=== PATIENT | female | born 1950 | race Caucasian/White ===

== ENCOUNTER 2023-05-26 09:40 | Outpatient (REF) | payer MEDICARE, SELFPAY ==
--- NOTE | ~2023-05-26 | XR_ITS ---
EXAMINATION: XR KNEE, RIGHT CLINICAL INFORMATION: Pain COMPARISON: None available. TECHNIQUE: Four views of the right knee. FINDINGS: Large effusion. End-stage osteoarthritis medial femoral tibial joint compartment with complete loss of joint space. Relatively advanced degenerative change involving the other joint compartments as well. No radiopaque loose body or focal bony lesion. XR/XR knee RT 3V IMPRESSION: End-stage osteoarthritis as above. Large effusion.
== END 2023-05-26 09:41 | disposition home or self-care (01) ==
LOC: HO.HOSX 09:40
PROVIDERS: Visit Provider Orthopaedic Surgery
DX: M17.11 Unilateral primary osteoarthritis, right knee (principal); Z79.899 Other long term (current) drug therapy
CPT/HCPCS: 20610; 73562; 99202; J3301

== ENCOUNTER 2023-05-26 12:41 | Outpatient (AMB) | payer MEDICARE, SELFPAY ==
--- NOTE | 2023-05-26 12:49 | A.OFFVIS_ITS ---
Intake Vital Signs 05/26/23 13:09 Height 5 ft 4 in Weight 207 lb BMI 35.5 Intake Visit Reasons: New Pt - Right Knee Pain Intake Note: Antonietta is a 73 year old female who presents today to for an evaluation of right knee pain. Patient reports she has O.A in both knee but her right is worse. States she had a fall on March and injury her knee. Seen at walk in [place] and at PCP office where xrays were taken and was RX'd therapy. Patient reports she was told she has fluid in knee. Reports P.T is helping some what. Currently taking gabapentin with temporarily relief. Patient has tried Gel injection and cortisone injection a while ago with good relief. This is a previous patient of Dr. Rodriguez. 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 Physical Exam Const Other: Well-nourished well-developed very friendly female awake alert and oriented x3 in no acute distress Extrem Other: Bilateral lower extremity examination shows good capillary refill, no skin lesions noted, normal sensation light touch Right knee examination shows a minimal effusion, palpable crepitus with range of motion, pain with range of motion, range of motion from -3 degrees to 115 degrees, no instability Office Procedures Joint Injection/Drain Joint Injection/Drain Primary Site: right knee Prep: site was prepped using aseptic technique Injected: 40 mg of, Kenalog and 1% plain lidocaine Procedure: The patient tolerated the procedure well Coding 47123 - Large joint Procedure code (CPT) selection complete Results Reviewed Results Reviewed: X-rays of the patient's right knee taken today show severe joint space narrowing, subchondral sclerosis, osteophyte formation, no acute bony abnormalities Assessment & Plan Assessment & Plan (1) Arthritis of right knee: Code(s): M17.11 - Unilateral primary osteoarthritis, right knee Plan: Ms. Tijerina presents with progressively worsening right knee pain due to degenerative joint disease. I had a lengthy discussion with the patient susy vitale the treatment options. She wishes to hold off on total knee replacement surgery for as long as possible. I agree with this plan. The risks and benefits of a cortisone injection were discussed at length with the patient. The patient wished to proceed. She tolerated her right knee cortisone injection well. She will continue with activities as tolerated. She will follow up with me on an as-needed basis should her symptoms not plateau at an unacceptable level over the next few months. If she fails continued non operative treatments we will further discuss the risks and benefits of right total knee replacement surgery. I spent 24 minutes in reviewing the patient's records and imaging studies, seeing the patient and documenting in the medical record. (2) Heart murmur: Code(s): R01.1 - Cardiac murmur, unspecified Orders: Orders XR knee RT 3V Today M25.561 - Pain in right knee AMB Joint Injection/Aspiration Today M17.11 - Unilateral primary osteoarthritis, right knee Coding Level of Care Code Est Pt Level 2 (75132) Diagnoses Arthritis of right knee M17.11 Heart murmur R01.1 CPT Codes Coding - 28585 Large joint: 32442 - Large joint ([id number])
[2023-05-26 13:09] VITALS: BMI 35.5
== END 2023-05-26 13:47 | disposition home or self-care (01) ==
PROVIDERS: Visit Provider Orthopaedic Surgery
DX: M17.11 Unilateral primary osteoarthritis, right knee (principal); R01.1 Cardiac murmur, unspecified
CPT/HCPCS: 20610; 99203

== ENCOUNTER 2023-08-19 11:19 | Outpatient (AMB) | payer MEDICARE, SELFPAY ==
[2023-08-19 11:41] VITALS: BMI 35.5
--- NOTE | 2023-08-19 11:41 | MHC.OFFVIS ---
Intake Vital Signs 08/19/23 11:41 Height 5 ft 4 in Weight 207 lb BMI 35.5 Intake Visit Reasons: EP-Right Knee Pain Intake Note: Antonietta 73 yr old female presents today with complaints of progressively worsening right knee pain. She describes her pain as sharp and severe in nature, 08/24. Her pain has gotten worse over the last few years in spite of continued non operative treatments. She has done physical therapy for 12 weeks over the last 6 months which aggravated her pain. She has also tried Tylenol, anti-inflammatory medicines and oxycodone which gave her only mild relief. She has had injections in the past. Most recent injection gave her minimal relief. Patient has difficulty walking even short distances because of her pain. At this point her right knee pain is interfering with her activities of daily living and her ability to sleep both of the night. 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 Physical Exam Vital Signs: BMI result Body Mass Index 35.5 Const Other: Well-nourished well-developed very friendly female awake alert and oriented x3 in no acute distress Extrem Other: Bilateral lower extremity examination shows good capillary refill, no skin lesions noted, normal sensation light touch Right knee examination shows a minimal effusion, palpable crepitus with range of motion, pain with range of motion, range of motion from -3 degrees to 115 degrees, no instability Results Reviewed Results Reviewed: X-rays of the patient's right knee show severe joint space narrowing with grade 4 [id number] arthritis in the medial compartment, subchondral sclerosis, osteophyte formation, no acute bony abnormalities Assessment & Plan Assessment & Plan (1) Arthritis of right knee: Code(s): M17.11 - Unilateral primary osteoarthritis, right knee Plan: Mrs. Tijerina presents with progressively worsening right knee pain due to end-stage degenerative joint disease. I had a lengthy discussion with the patient regarding the treatment options. At this point she has failed continued non operative treatments. The risks and benefits of right total knee replacement surgery were discussed at length with the patient. The patient wishes to proceed with surgery later this year or early next year. She will contact my office to pick a surgery date. I will see her back 1 week prior to her surgery to answer any final questions that she might have. I did refill her prescription for oxycodone to help with her pain in the meantime. Feel free to call me at any time should questions regarding her orthopedic management arise. I spent 22 minutes in reviewing the patient's records and imaging studies, seeing the patient and documenting in the medical record. Medications: New oxycodone Partial Fill upon patient request. 5 mg PO Q12H PRN 40 tabs 0RF pain Coding Level of Care Code Est Pt Level 2 (50215) Diagnoses Arthritis of right knee M17.11
== END 2023-08-19 12:35 | disposition home or self-care (01) ==
PROVIDERS: PCP Internal Medicine; Visit Provider Orthopaedic Surgery
DX: M17.11 Unilateral primary osteoarthritis, right knee (principal)
CPT/HCPCS: 99212

== ENCOUNTER → 2023-08-19 11:19 | Outpatient (BNVA) | payer MEDICARE, SELFPAY | PROVIDERS: PCP Internal Medicine; Visit Provider Orthopaedic Surgery | DX: M17.11 Unilateral primary osteoarthritis, right knee (principal) | CPT/HCPCS: 99212 ==

== ENCOUNTER 2024-02-03 10:12 | Outpatient (AMB) | payer MEDICARE, SELFPAY ==
[2024-02-03 10:18] VITALS: BMI 35.5
--- NOTE | 2024-02-03 10:18 | A.OFFVIS_ITS ---
Intake Vital Signs 02/03/24 10:18 Height 5 ft 4 in Weight 207 lb BMI 35.5 Intake Visit Reasons: pre op right TKA 02/07/24 with Intake Note: Mrs. Tijerina presents with complaints of progressively worsening right knee pain. She describes her pain as sharp and severe in nature, 08/24. Her pain has gotten worse over the last few years in spite of continued non operative treatments. She has done physical therapy which aggravated her pain. She has also tried Tylenol and anti-inflammatory medicines which gave her minimal relief. She has had multiple injections. The most recent injection gave her no relief. The patient has difficulty walking even short distances because of her pain. At this point her right knee pain is interfering with her activities of daily living and her ability to sleep well through the night. Allergies Penicillins Allergy (Intermediate, Verified 02/03/24 10:22) Hives meperidine [From Demerol] Allergy (Mild, Verified 02/03/24 10:22) Hives diclofenac [From Voltaren] Allergy (Unknown, Verified 02/03/24 10:22) Unknown epinephrine Adverse Reaction (Intermediate, Verified 02/03/24 10:22) tachycardia Medication List - Last Reconciled 02/04/24 by Herbert Rodriguez MD aspirin 81 mg PO DAILY atenolol 25 mg PO BEDTIME cholecalciferol (vitamin D3) 50 mcg PO DAILY@1700 cimetidine 300 mg PO BID ferrous sulfate 325 mg PO Q OTHER DAY gabapentin 200 mg PO BEDTIME gabapentin 100 mg PO BID ibuprofen 800 mg PO DAILY Knee brace As directed magnesium hydroxide 311 mg PO BEDTIME oxycodone 5 mg PO Q12H PRN walker Folding front wheeled walker [facility] Medical History (Updated 01/27/24 @ 13:22 by Gabbie Russ RN) Arthritis UTI (urinary tract infection) H1N1 influenza Murmur HTN (hypertension) Pericardial effusion SVT (supraventricular tachycardia) Osteopenia Osteoarthritis Migraine IBS (irritable bowel syndrome) Hiatal hernia Former cigarette smoker GERD (gastroesophageal reflux disease) Diverticulosis Ascending aorta dilation Aortic valve disease Anemia Surgical History (Updated 01/27/24 @ 13:22 by Gabbie Russ RN) History of esophagogastroduodenoscopy (EGD) H/O colonoscopy History of cervical discectomy Hx of section Hx of tonsillectomy Hx of cholecystectomy Social History Are you a primary director of managed care to a significant other at home: No Do you presently have visiting nurse or other home services: No Patient Tobacco Use Status: Former Tobacco user Current occupational status: retired 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 Physical Exam Vital Signs: BMI result Body Mass Index 35.5 Const Other: Well-nourished well-developed very friendly female awake alert and oriented x3 in no acute distress Extrem Other: Bilateral lower extremity examination shows good capillary refill, no skin lesions noted, normal sensation light touch Right knee examination shows a minimal effusion, palpable crepitus with range of motion, pain with range of motion, range of motion from -3 degrees to 115 degrees, no instability Results Reviewed Results Reviewed: X-rays of the patient's right knee show end-stage degenerative joint disease with grade 4 [id number] arthritis, subchondral sclerosis, osteophyte f ormation, no acute bony abnormalities Assessment & Plan Assessment & Plan (1) Arthritis of right knee: Code(s): M17.11 - Unilateral primary osteoarthritis, right knee Plan Mrs. Tijerina presents with progressively worsening right knee pain due to end-stage degenerative joint disease. I had a lengthy discussion with the patient regarding the treatment options. At this point she has failed continued non operative treatments. The risks and benefits of right total knee replacement surgery were discussed at length with the patient. The patient wishes to proceed with surgery. conference services coordinator will be consulted following her surgery for home physical therapy and nursing. The patient will follow-up as instructed. Feel free to call me at any time should questions regarding her orthopedic management arise. I spent 22 minutes in reviewing the patient's records and imaging studies, seeing the patient and documenting in the medical record. Coding Level of Care Code Est Pt Level 2 (65791) Diagnoses Arthritis of right knee M17.11
== END 2024-02-03 10:58 | disposition home or self-care (01) ==
PROVIDERS: PCP Internal Medicine; Visit Provider Orthopaedic Surgery
DX: Z01.818 Encounter for other preprocedural examination (principal); M17.11 Unilateral primary osteoarthritis, right knee
CPT/HCPCS: 99024

== ENCOUNTER → 2024-02-03 10:12 | Outpatient (BNVA) | payer MEDICARE, SELFPAY | PROVIDERS: PCP Internal Medicine; Visit Provider Orthopaedic Surgery | DX: M17.11 Unilateral primary osteoarthritis, right knee (principal) | CPT/HCPCS: 99212 ==

== ENCOUNTER 2024-02-07 10:02 | Inpatient (IN) | payer MEDICARE, SELFPAY ==
[2024-01-27 13:36] VITALS: BP 111/63; PULSE 69; RESP 18; O2SAT 97; BMI 31.8
[2024-01-27 15:07] LABS: Hematocrit 41.3 % (37.0-47.0); Hemoglobin 13.4 g/dl (12.0-16.0); Mean Corpuscular HGB Conc 32.4 g/dl (31.0-35.0); Mean Corpuscular Hemoglobin 28.3 pg (27.0-33.0); Mean Corpuscular Volume 87.1 fL (80.0-98.0); Mean Platelet Volume 9.6 fL (9.4-12.3); Platelet Count 258 X10*3/uL (160-400); Red Blood Count 4.74 X10*6/uL (4.20-5.50); Red Cell Distribution Width 14.6 % (11.0-16.0); White Blood Count 6.2 X10*3/uL (4.8-10.8)
[2024-01-27 15:35] LABS: Anion Gap 14 (12-20); Blood Urea Nitrogen 22 mg/dL (9-16); Calcium 9.7 mg/dL (8.4-10.2); Carbon Dioxide 26 mmol/L (22-29); Chloride 105 mmol/L (96-108); Creatinine Clr Calc Pharmacy 52.4; Estimated Glomerular Filt Rate 49; Glucose Random 89 mg/dL (60-115); Potassium 4.1 mmol/L (3.3-5.1); Sodium 141 mmol/L (135-145)
[2024-01-27 16:39] LABS: MRSA Nasal PCR NEGATIVE (Negative); SA Nasal PCR NEGATIVE (Negative)
[2024-02-07] VITALS (10 sets, daily range): BP systolic 101–136; BP diastolic 62–75; PULSE 58–79; RESP 16–18; TEMP 36.3–36.8; O2SAT 97–100; BMI 31.8
[2024-02-07] MEDS: Lactated Ringers 1,000 ML 100 ML IVCONT ×2 (11:33→19:13)
--- NOTE | 2024-02-07 12:20 | P.CONAN_ITS ---
Documented by User: Florina Becerra NP 02/04/24 09:01 HPI - Anesthesia Eval Consult details Narrative: 73yo F for Right Knee Replacement Total Medically cleared Cardiac cleared. Follows [facility] for Atrial Tach, nonrheumatic aortic valve stenosis, essential htn, asc aorta dilation Seen in PAT 01/27/[address] Samantha MATIAS Active Problems Active Problems: All Active Problems (Updated 01/27/24 @ 13:22 by Gabbie Russ, RN) Arthritis of right knee (Acute) Right knee pain (Acute) Past Medical History Medical History (Updated 01/27/24 @ 13:22 by Gabbie Russ RN) Arthritis UTI (urinary tract infection) H1N1 influenza Murmur HTN (hypertension) Pericardial effusion SVT (supraventricular tachycardia) Osteopenia Osteoarthritis Migraine IBS (irritable bowel syndrome) Hiatal hernia Former cigarette smoker GERD (gastroesophageal reflux disease) Diverticulosis Ascending aorta dilation Aortic valve disease Anemia Surgical History Surgical History (Updated 01/27/24 @ 13:22 by Gabbie Russ RN) History of esophagogastroduodenoscopy (EGD) H/O colonoscopy History of cervical discectomy Hx of section Hx of tonsillectomy Hx of cholecystectomy Social History Social History Are you a primary residential care facility manager to a significant other at home: No Do you presently have visiting nurse or other home services: No Patient Tobacco Use Status: Former Tobacco user Use of substances other than those prescribed or required for medical reasons: No Have you been hit, kicked, punched, or otherwise hurt by someone within the past year? 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 Meds Allergies Allergy/AdvReac Type Severity Reaction Status Date / Time Penicillins Allergy Intermediate Hives Verified 02/03/24 10:22 meperidine [From Demerol] Allergy Mild Hives Verified 02/03/24 10:22 diclofenac [From Voltaren] Allergy Unknown Unknown Verified 02/03/24 10:22 epinephrine AdvReac Intermediate tachycardia Verified 02/03/24 10:22 Home Medications Medication Instructions Recorded Confirmed Last Taken Type atenolol 25 mg tablet 25 mg PO BEDTIME 05/26/23 02/04/24 Unknown History cholecalciferol (vitamin D3) 50 50 mcg PO DAILY@1700 05/26/23 02/04/24 Unknown History mcg (2,000 unit) tablet cimetidine 300 mg tablet 300 mg PO BID 05/26/23 02/04/24 Unknown History ferrous sulfate 325 mg (65 mg 325 mg PO Q OTHER DAY 05/26/23 02/04/24 Unknown History iron) tablet gabapentin 100 mg capsule 100 mg PO BID 05/26/23 02/04/24 Unknown History ibuprofen 800 mg tablet 800 mg PO DAILY 05/26/23 02/04/24 Unknown History aspirin 81 mg tablet,delayed 81 mg PO DAILY 01/26/24 02/04/24 Unknown History release gabapentin 100 mg capsule 200 mg PO BEDTIME 01/27/24 02/04/24 Unknown History magnesium hydroxide 311 mg 311 mg PO BEDTIME 01/27/24 02/04/24 Unknown History chewable tablet Exam Height,Weight and Vital Signs: Height 5 ft 6 in Weight 89.358 kg Last Vital Signs Pulse 69 01/27/24 13:36 Resp 18 01/27/24 13:36 BP 111/63 01/27/24 13:36 Pulse Ox 97 01/27/24 13:36 O2 Del Method Room Air 01/27/24 13:36 Pertinent Lab Results Pertinent Lab Results: Laboratory Tests 01/27/24 01/27/24 13:48 14:30 WBC 6.2 RBC 4.74 Hgb 13.4 Hct 41.3 MCV 87.1 MCH 28.3 MCHC 32.4 RDW 14.6 Plt Count 258 MPV 9.6 Absolute Nucleated RBC 0.000 Nucleated RBC % (auto) 0.0 Sodium 141 Potassium 4.1 Chloride 105 Carbon Dioxide 26 Anion Gap 14 BUN 22 H Creatinine 1.09 Estim Creat Clear Calc 52.4 Estimated GFR 49 Random Glucose 89 Calcium 9.7 Nasal Screen MRSA (PCR) NEGATIVE Nasal S. aureus Screen NEGATIVE Nasal MRSA/S.aureus Interp SEE NOTE Blood Type A Positive Antibody Screen NEGATIVE Narrative Narrative: EKG 01/2024 NSR @ 84 ? LAE LAFB Nonspecific ST abn ECHO 2021 Nml LV size and sys function. Mild concentric LVH. LVEF 60-65%. Grade 2 abnormal LV systolic diastolic function. Nml RV size and function Severely dilated LA Mild dilated RA Diffuse thickening of aortic valve cusps with reduced excursion. Mild-mod aortic stenosis. Mild aortic insufficiency. PASP could not be obtained. C/W 2020, aortic valve gradient slightly higher Cardiac PET Stress Test Abnormal regadenoson stress test with nuc imaging. The patient had no chest pain and no EKG changes suggestive of ischemia. Nuc imaging revealed no areas of ischemia or infarction. Myocardial blood flow is mildly reduced in reserve flow in the 3 major coronary arteries. TID was normal at 1.04 Moderate coronary artery calcification noted in the 3 major coronary arteries. Severe calcification is noted in the mitral and aortic valve. Gated PET imaging was performed which demonstrated nml LV function and thickening with a calculated [id number] at rest and 79% at stress. Assessment and Plan Assessment Anesthesia Assessment: Chart Reviewed Documented by User: Mana Broussard DO 02/07/24 12:25 [facility] Past Medical History Medical History (Updated 01/27/24 @ 13:22 by Gabbie Russ, RN) Arthritis UTI (urinary tract infection) H1N1 influenza Murmur HTN (hypertension) Pericardial effusion SVT (supraventricular tachycardia) Osteopenia Osteoarthritis Migraine IBS (irritable bowel syndrome) Hiatal hernia Former cigarette smoker GERD (gastroesophageal reflux disease) Diverticulosis Ascending aorta dilation Aortic valve disease Anemia Surgical History Surgical History (Updated 01/27/24 @ 13:22 by Gabbie Russ RN) History of esophagogastroduodenoscopy (EGD) H/O colonoscopy History of cervical discectomy Hx of section Hx of tonsillectomy Hx of cholecystectomy History of Problems with Anesthesia: No Social History Social History Are you a primary residential care facility manager to a significant other at home: No Do you presently have visiting nurse or other home services: No Patient Tobacco Use Status: Former Tobacco user Use of substances other than those prescribed or required for medical reasons: No Have you been hit, kicked, punched, or otherwise hurt by someone within the past year? 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 Meds Allergies Allergy/AdvReac Type Severity Reaction Status Date / Time Penicillins Allergy Intermediate Hives Verified 02/03/24 10:22 meperidine [From Demerol] Allergy Mild Hives Verified 02/03/24 10:22 diclofenac [From Voltaren] Allergy Unknown Unknown Verified 02/03/24 10:22 epinephrine AdvReac Intermediate tachycardia Verified 02/03/24 10:22 Home Medications Medication Instructions Recorded Confirmed Last Taken Type atenolol 25 mg tablet 25 mg PO BEDTIME 05/26/23 02/04/24 Unknown History cholecalciferol (vitamin D3) 50 50 mcg PO DAILY@1700 05/26/23 02/04/24 Unknown History mcg (2,000 unit) tablet cimetidine 300 mg tablet 300 mg PO BID 05/26/23 02/04/24 Unknown History ferrous sulfate 325 mg (65 mg 325 mg PO Q OTHER DAY 05/26/23 02/04/24 Unknown History iron) tablet gabapentin 100 mg capsule 100 mg PO BID 05/26/23 02/04/24 Unknown History ibuprofen 800 mg tablet 800 mg PO DAILY 05/26/23 02/04/24 Unknown History aspirin 81 mg tablet,delayed 81 mg PO DAILY 01/26/24 02/04/24 Unknown History release gabapentin 100 mg capsule 200 mg PO BEDTIME 01/27/24 02/04/24 Unknown History magnesium hydroxide 311 mg 311 mg PO BEDTIME 01/27/24 02/04/24 Unknown History chewable tablet Exam Exam Date and Time: February 07, 2024 1220 Height,Weight and Vital Signs: Height 5 ft 6 in Weight 89.358 kg Last Vital Signs Pulse 69 01/27/24 13:36 Resp 18 01/27/24 13:36 BP 111/63 01/27/24 13:36 Pulse Ox 97 01/27/24 13:36 O2 Del Method Room Air 01/27/24 13:36 Height 5 ft 6 in Weight 89.358 kg Vital Signs Pulse Rate 69 01/27/24 13:36 Respiratory Rate 18 01/27/24 13:36 Blood Pressure 111/63 01/27/24 13:36 Pulse Oximetry 97 01/27/24 13:36 Oxygen Delivery Method Room Air 01/27/24 13:36 Temperature 98.1 F 02/07/24 11:11 Pulse Rate 62 02/07/24 11:11 Respiratory Rate 18 02/07/24 11:11 Blood Pressure 119/66 02/07/24 11:11 Pulse Oximetry 100 02/07/24 11:11 Oxygen Delivery Method Room Air 02/07/24 11:11 Airway Mallampati Class: II TM Dist: >3cm Neck ROM: Full Partial: Upper Heart: S1S2 Lungs: CTAB Assessment and Plan Assessment Anesthesia Assessment: Anesthesia Plan Discussed and Chart Reviewed Final Anesthetic Review History of Problems with Anesthesia: No NPO: Yes ASA Class: III Final Preanesthetic Review: No Changes in Pt Med Stat, Meds/Allgs Chart Reviewed, Consent Obtained/Reviewed and Anes Risks/Benef Reviewed Patient Risk: Intermediate Procedure Risk: Intermediate Anesthetic Plan Anesthetic Plan: Spinal, Regional Block (right adductor canal and right ipack blocks) and Agree w/ Assess. and Plan
--- NOTE | 2024-02-07 16:16 | PHA.MEDREC ---
Pharmacy Consult ? Medication Reconciliation Pharmacy has reviewed the medication reconciliation completed by nursing.
[2024-02-07] MEDS: Cholecalciferol (Vitamin D3) 25 MCG TABLET 50 MCG PO (19:12)
[2024-02-07] MEDS: Ferrous Sulfate 324 MG TABLET.DR PO (19:13)
[2024-02-07] MEDS: 0.9 % Sodium Chloride Flush 3 ML SYRINGE IVFLUSH (19:13)
[2024-02-07] MEDS: Aspirin 325 MG TABLET PO ×2 (19:19→21:22)
[2024-02-07] MEDS: methocarbamoL 500 MG TABLET PO ×2 (19:20→21:23)
[2024-02-07] MEDS: atenoloL 25 MG TABLET PO (21:21)
[2024-02-07] MEDS: Clindamycin HCL 300 MG CAPSULE 900 MG PO (21:22)
[2024-02-07] MEDS: Celecoxib 200 MG CAPSULE PO (21:23)
[2024-02-07] MEDS: Magnesium Oxide 400 MG TABLET 200 MG PO (21:23)
[2024-02-07] MEDS: oxyCODONE HCl ER 10 MG TAB.ER.12H PO (21:23)
[2024-02-07] MEDS: Docusate Sodium 100 MG CAPSULE PO (21:23)
[2024-02-07] MEDS: Gabapentin 100 MG CAPSULE 200 MG PO (21:23)
[2024-02-07] MEDS: Famotidine 20 MG TABLET PO (21:23)
[2024-02-08] VITALS (7 sets, daily range): BP systolic 107–111; BP diastolic 57–59; PULSE 61–71; RESP 16–18; TEMP 36.2–36.8; O2SAT 94–98
[2024-02-08] MEDS: HYDROmorphone HCl 0.5 MG/0.5 ML SYRINGE 0.25 MG IVPUSH ×5 (01:19→21:29)
[2024-02-08] MEDS: Lactated Ringers 1,000 ML 100 ML IVCONT ×2 (04:22→14:32)
[2024-02-08] MEDS: Clindamycin HCL 300 MG CAPSULE 900 MG PO (04:42)
[2024-02-08] MEDS: Calcium Carbonate 750 MG TAB.CHEW PO ×2 (05:24→18:54)
[2024-02-08 05:57] LABS: MANUAL DIFF FLAG NO
[2024-02-08 06:03] LABS: Basophils Percent Auto 0.1 % (0-2); Hematocrit 34.3 % (37.0-47.0); Hemoglobin 11.1 g/dl (12.0-16.0); Imm Gran Abs Auto 0.02 X10*3/uL (0.00-0.03); Imm Gran Pct Auto 0.2 % (0.0-0.4); Lymphocytes Absolute Auto 1.2 X10*3/uL (1.2-4.9); Lymphocytes Percent Auto 14.2 % (20-40); Mean Corpuscular HGB Conc 32.4 g/dl (31.0-35.0); Mean Corpuscular Volume 86.4 fL (80.0-98.0); Mean Platelet Volume 9.9 fL (9.4-12.3); Monocytes Absolute Auto 0.7 X10*3/uL (0.1-1.2); Monocytes Percent Auto 7.9 % (2-11); Neutrophils Absolute Auto 6.5 x10*3/uL (2.0-8.3); Neutrophils Percent Auto 77.6 % (45-73); Platelet Count 205 X10*3/uL (160-400); Red Blood Count 3.97 X10*6/uL (4.20-5.50); Red Cell Distribution Width 14.3 % (11.0-16.0); White Blood Count 8.4 X10*3/uL (4.8-10.8)
[2024-02-08 06:26] LABS: Anion Gap 11 (12-20); Blood Urea Nitrogen 20 mg/dL (9-16); Calcium 9.2 mg/dL (8.4-10.2); Carbon Dioxide 24 mmol/L (22-29); Chloride 109 mmol/L (96-108); Creatinine Clr Calc Pharmacy 72.4; Estimated Glomerular Filt Rate > 60; Glucose Fasting 112 mg/dL (60-99); Potassium 4.3 mmol/L (3.3-5.1); Sodium 140 mmol/L (135-145)
--- NOTE | 2024-02-08 07:36 | P.PNOP_ITS ---
Subjective Subjective Date of Service: 02/08/24 Interval history: POD 1 s/p RT TKA no overnight events pain is managable denies sob, cp, palpitations Physical Exam Vital Signs: Vital Signs: Last Vital Signs Temp 97.2 F 02/08/24 04:00 Pulse 61 02/08/24 04:00 Resp 18 02/08/24 04:00 BP 109/59 L 02/08/24 04:00 Pulse Ox 94 02/08/24 04:00 O2 Del Method Room Air 02/08/24 04:00 O2 Flow Rate 97 02/07/24 20:00 BMI result Body Mass Index 31.8 Const: General: cooperative, healthy appearing and no acute distress Resp: Effort & Inspection: normal respiratory effort and able to speak in complete sentences Cardio: Rate: regular rate Peripheral pulses: Peripheral pulses 2+ throughout GI: Palpation (GI): Soft to palpation Skin: General skin exam: no rashes or lesions noted Extrem: Other: bandage clean dry and intact. Alvaro intact. No erythema or joint effusion. Calf supple nontender. Neurovascularly intact. Procedures Date of Service Date of Service: 02/08/24 Progress Note: A&P Assessment and plan (1) Status post total right knee replacement: Status: Acute Assessment and Plan: * Continue pain mgmnt * Begin Aspirin for dvt ppx * begin PT for RT TKA * Dispo planning-Pending PT eval, pain mgmnt Time Spent With Patient Time: Total time managing care of this patient today ____ minutes. Quality Stroke Does the patient have a stroke diagnosis?: No VTE Prior VTE?: No VTE Risk Level:: Surgical - very high VTE Device Contraindication: N/A - Device Ordered VTE Drug Contraindication: N/A - Med Ordered
[2024-02-08] MEDS: Docusate Sodium 100 MG CAPSULE PO ×2 (08:29→21:28)
[2024-02-08] MEDS: methocarbamoL 500 MG TABLET PO ×3 (08:29→21:28)
[2024-02-08] MEDS: Aspirin 325 MG TABLET PO ×2 (08:29→21:29)
[2024-02-08] MEDS: Celecoxib 200 MG CAPSULE PO ×2 (08:29→21:28)
[2024-02-08] MEDS: Famotidine 20 MG TABLET PO ×2 (08:29→21:29)
[2024-02-08] MEDS: oxyCODONE HCl ER 10 MG TAB.ER.12H PO ×2 (08:29→21:28)
--- NOTE | 2024-02-08 09:18 | MHC.CM.PN ---
IMM 02/08/24 DELIVERED TO BEDSIDE, PT A&OX4, PT REPORTS SHE LIVES W/HER , IS INDEP W/ALL CARE AT BASELINE, HAS A CANE/ROLLATER AND FWW, TUB BENCH, COMMODE AND GRAB BARS IN [place], NO HOME SERVICES AND REPORTS HER SISTERS AND CHILDREN CAN HELP IF SHE NEEDS ANYTHING. PT VERIFIES PCP ON FILE IS CORRECT, COVID VACC X2, PT REPORTS HER DANE AND DTR HALLEY BRUCE ARE HER HCP'S, COPY REQUESTED. [facility] W/NEW VNA FOR HOME PT TOMORROW, REFERRAL PLACED TO [facility], FAMILY FOR TRANSPORT
--- NOTE | 2024-02-08 10:19 | P.CONHOSP_ITS ---
History of Present Illness Data of Consult Service Date: 02/08/24 Primary Care Provider: Carlito Gill MD HPI 73-year-old woman with history of hypertension, SVT, arthritis admitted by Orthopedic surgery and is status post right total knee arthroplasty. Surgery was unremarkable. Patient is eating and drinking without any nausea or vomiting. Patient is moderately controlled, she has no acute medical complaints at this time. She is hemodynamically stable. Review of Systems 2 Review of Systems: Denies any recent fever chills or decrease in appetite respiratory denies any shortness of breath or cough cardiovascular denied chest pain gastrointestinal denies any dysphagia abdominal pain nausea vomiting or diarrhea genitourinary denies any dysuria frequency or hematuria musculoskeletal denies any joint pain or swelling neuropsych denies any weakness or seizures all other systems reviewed are negative [facility] Medical History (Updated 02/08/24 @ 10:24 by Kenisha Bettencourt NP) Arthritis Murmur HTN (hypertension) Pericardial effusion SVT (supraventricular tachycardia) Osteopenia Osteoarthritis Migraine IBS (irritable bowel syndrome) Hiatal hernia GERD (gastroesophageal reflux disease) Diverticulosis Ascending aorta dilation Aortic valve disease Anemia Pertinent family history: No cardiac hx Surgical History (Updated 02/08/24 @ 07:38 by Nina Lutz PA-C) History of esophagogastroduodenoscopy (EGD) H/O colonoscopy History of cervical discectomy Hx of section Hx of tonsillectomy Hx of cholecystectomy Social History Household Members: Spouse Housing: House Are you a primary health care consultant to a significant other at home: No Do you presently have visiting nurse or other home services: No Patient Tobacco Use Status: Former Tobacco user Use of substances other than those prescribed or required for medical reasons: No Currently Displaying Signs/Symptoms of Drug Intoxication Withdrawal: No Have you been hit, kicked, punched, or otherwise hurt by someone within the past year? If so, by whom?: No Do you feel safe in your current relationship?: Yes Is there a partner from a previous relationship who is making you feel unsafe now?: No Are you made to feel afraid or neglected: No [facility] Healthcare Practices: [employer] Are you DNR?: No Advance Directives: No Advance Directives Information Provided: No Advance Directives on File: No Do you have thoughts of harming others: None Do you have a plan to hurt others: No Plan Recently lost weight without trying: No How much weight loss: Not applicable Eating poorly because of decreased appetite: No Nutrition screen score: 0 Nutrition Risks: No Nutritional Risk Patient : No : No Poor oral hygiene: No service: No Current occupational status: retired 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 Meds Allergies Allergy/AdvReac Type Severity Reaction Status Date / Time Penicillins Allergy Intermediate Hives Verified 02/03/24 10:22 meperidine [From Demerol] Allergy Mild Hives Verified 02/03/24 10:22 diclofenac [From Voltaren] Allergy Unknown Unknown Verified 02/03/24 10:22 epinephrine AdvReac Intermediate tachycardia Verified 02/03/24 10:22 Active Medications: Current Medications Acetaminophen (Acetaminophen 325 Mg Tablet) 650 mg PO Q6H PRN PRN Reason: Pain, Mild (Pain Scale 1-3) Aspirin (Aspirin 325 Mg Tablet) 325 mg PO BID [facility] Last Admin: 02/08/24 08:29 Dose: 325 mg Atenolol (Atenolol 25 Mg Tablet) 25 mg PO BEDTIME [facility]; Protocol Last Admin: 02/07/24 21:21 Dose: 25 mg Celecoxib (Celecoxib 200 Mg Capsule) 200 mg PO BID [facility] Last Admin: 02/08/24 08:29 Dose: 200 mg Docusate Sodium (Docusate Sodium 100 Mg Capsule) 100 mg PO BID [facility] Last Admin: 02/08/24 08:29 Dose: 100 mg Famotidine (Famotidine 20 Mg Tablet) 20 mg PO BID [facility] Last Admin: 02/08/24 08:29 Dose: 20 mg Ferrous Sulfate (Ferrous Sulfate 324 Mg Tablet.Dr) 324 mg PO Q48H [facility] Last Admin: 02/07/24 19:13 Dose: 324 mg Gabapentin (Gabapentin 100 Mg Capsule) 200 mg PO BEDTIME [facility] Last Admin: 02/07/24 21:23 Dose: 200 mg Haloperidol Lactate (Haloperidol Lactate 5 Mg/Ml Vial) 0.5 mg IVPUSH ONCE PRN PRN Reason: Nausea and Vomiting Hydromorphone HCl (Hydromorphone Hcl 0.5 Mg/0.5 Ml Syringe) 0.25 mg IVPUSH Q4H PRN; Protocol PRN Reason: Pain, Severe (Pain Scale 7-10) Last Admin: 02/08/24 08:32 Dose: 0.25 mg Hydromorphone HCl (Hydromorphone Hcl 0.5 Mg/0.5 Ml Syringe) 0.5 mg IVPUSH Q4H PRN; Protocol PRN Reason: Pain, Severe (Pain Scale 7-10) Lactated Ringer's (Lr) 1,000 mls @ 100 mls/hr IVCONT .Q10H [facility] Last Admin: 02/08/24 04:22 Dose: 100 mls/hr Magnesium Oxide (Magnesium Oxide 400 Mg Tablet) 200 mg PO BEDTIME [facility] Last Admin: 02/07/24 21:23 Dose: 200 mg Methocarbamol (Methocarbamol 500 Mg Tablet) 500 mg PO TID [facility] Last Admin: 02/08/24 08:29 Dose: 500 mg Ondansetron HCl (Ondansetron Hcl 4 Mg/2 Ml Vial) 4 mg IVPUSH Q8H PRN PRN Reason: Nausea and Vomiting Oxycodone HCl (Oxycodone Hcl Immed Release 5 Mg Tablet) 5 mg PO Q4H PRN PRN Reason: Pain, Moderate(Pain Scale 4-6) Oxycodone HCl (Oxycodone Hcl Immed Release 5 Mg Tablet) 10 mg PO Q4H PRN PRN Reason: Pain, Moderate(Pain Scale 4-6) Oxycodone HCl (Oxycodone Hcl Er 10 Mg Tab.Er.12h) 10 mg PO BID [facility] Last Admin: 02/08/24 08:29 Dose: 10 mg Sodium Chloride (0.9 % Sodium Chloride Flush 3 Ml Syringe) 3 ml IVFLUSH QSHIFT [facility] Last Admin: 02/08/24 08:33 Dose: Not Given Vitamin D (Cholecalciferol (Vitamin D3) 25 Mcg Tablet) 50 mcg PO DAILY@1700 [facility] Last Admin: 02/07/24 19:12 Dose: 50 mcg Home Medications Medication Instructions Recorded Confirmed Last Taken Type atenolol 25 mg tablet 25 mg PO BEDTIME 05/26/23 02/04/24 Unknown History cholecalciferol (vitamin D3) 50 50 mcg PO DAILY@1700 05/26/23 02/04/24 Unknown History mcg (2,000 unit) tablet cimetidine 300 mg tablet 300 mg PO BID 05/26/23 02/04/24 Unknown History ferrous sulfate 325 mg (65 mg 325 mg PO Q OTHER DAY 05/26/23 02/04/24 Unknown History iron) tablet gabapentin 100 mg capsule 100 mg PO BID@0900,1200 05/26/23 02/07/24 Unknown History ibuprofen 800 mg tablet 800 mg PO DAILY 05/26/23 02/04/24 Unknown History aspirin 81 mg tablet,delayed 81 mg PO DAILY 01/26/24 02/04/24 Unknown History release gabapentin 100 mg capsule 200 mg PO BEDTIME 01/27/24 02/04/24 Unknown History magnesium hydroxide 311 mg 311 mg PO BEDTIME 01/27/24 02/04/24 Unknown History chewable tablet Physical Exam 2 Vital Signs and Narrative: Vital Signs: Last Vital Signs Temp 97.2 F 02/08/24 07:44 Pulse 62 02/08/24 07:44 Resp 16 02/08/24 07:44 BP 111/57 L 02/08/24 07:44 Pulse Ox 97 02/08/24 07:44 O2 Del Method Room Air 02/08/24 07:44 O2 Flow Rate 97 02/07/24 20:00 BMI result Body Mass Index 31.8 Appearing in no acute distress head is normocephalic atraumatic eyes pupils are PERRLA sclera is anicteric mouth throat mucous membranes are intact and moist neck is supple no lymphadenopathy, no JVD noted lung sounds are clear to auscultation heart regular rate rhythm, clear S1, S2 positive bowel sounds, abdomen is soft, nontender neuro patient is alert x3, no focal deficits Results Labs 02/08/24 05:22 02/08/24 05:22 Labs: Laboratory Results - last 24 hr 02/08/24 05:22 MCV 86.4 MCH 28.0 MCHC 32.4 RDW 14.3 Plt Count 205 MPV 9.9 Immature Gran % (Auto) 0.2 Neut % (Auto) 77.6 H Lymph % (Auto) 14.2 L [place] % (Auto) 7.9 Eos % (Auto) 0.0 Baso % (Auto) 0.1 Lymph # (Auto) 1.2 [place] # (Auto) 0.7 Eos # (Auto) 0.0 Baso # (Auto) 0.0 Abs Immat Gran (auto) 0.02 Absolute Neuts (auto) 6.5 Absolute Nucleated RBC 0.000 Nucleated RBC % (auto) 0.0 Anion Gap 11 L Estim Creat Clear Calc 72.4 Estimated GFR > 60 Fasting Glucose 112 H Calcium 9.2 Assessment and Plan (1) Status post total right knee replacement: Status: Acute Plan 73 year old women admitted to orthopedic surgery Right TKA management as per surgical team pain management HTN stable BP Hx of SVT continue atenolol iron def anemia continue iron supplement DVT prophylaxis with full-dose aspirin Full code Medical consultation complete. Will sign off
--- NOTE | 2024-02-08 13:00 | HO.POSTANES ---
Post Anesthesia Evaluation Post Anesthesia Evaluation Date of Service: 02/08/24 Vital Signs: Vital Signs Temp Pulse Resp BP Pulse Ox O2 Del Method 02/08/24 12:25 96 Room Air 02/08/24 07:44 97.2 F 62 16 111/57 L 97 Room Air 02/08/24 04:00 97.2 F 61 18 109/59 L 94 Room Air 02/08/24 01:49 18 Anesthesia: Spinal and Nerve Block Mental Status: Awake Pain Control: Satisfactory Nausea/Vomiting: None Hydration: Adequate Anesthesia-Related Issues: No Anes. Related Issues
[2024-02-08] MEDS: Cholecalciferol (Vitamin D3) 25 MCG TABLET 50 MCG PO (17:12)
[2024-02-08] MEDS: oxyCODONE HCl Immed Release 5 MG TABLET PO (18:25)
[2024-02-08] MEDS: Gabapentin 100 MG CAPSULE 200 MG PO (21:28)
[2024-02-08] MEDS: Magnesium Oxide 400 MG TABLET 200 MG PO (21:28)
[2024-02-08] MEDS: atenoloL 25 MG TABLET PO (21:29)
[2024-02-09] MEDS: Lactated Ringers 1,000 ML 100 ML IVCONT (00:15)
[2024-02-09] MEDS: oxyCODONE HCl Immed Release 5 MG TABLET PO (00:22)
[2024-02-09 03:25] VITALS: BP 101/60; PULSE 59; RESP 16; TEMP 36.4; O2SAT 93
[2024-02-09 03:46] VITALS: RESP 18
[2024-02-09] MEDS: HYDROmorphone HCl 0.5 MG/0.5 ML SYRINGE 0.25 MG IVPUSH (03:46)
[2024-02-09 05:32] LABS: MANUAL DIFF FLAG NO
[2024-02-09 05:37] LABS: Basophils Percent Auto 0.3 % (0-2); Eosinophils Absolute Auto 0.2 X10*3/uL (0.0-0.4); Eosinophils Percent Auto 3.2 % (0-4); Hematocrit 31.9 % (37.0-47.0); Hemoglobin 10.2 g/dl (12.0-16.0); Imm Gran Abs Auto 0.02 X10*3/uL (0.00-0.03); Imm Gran Pct Auto 0.3 % (0.0-0.4); Lymphocytes Absolute Auto 1.8 X10*3/uL (1.2-4.9); Lymphocytes Percent Auto 26.5 % (20-40); Mean Corpuscular Hemoglobin 27.7 pg (27.0-33.0); Mean Corpuscular Volume 86.7 fL (80.0-98.0); Mean Platelet Volume 9.6 fL (9.4-12.3); Monocytes Absolute Auto 0.6 X10*3/uL (0.1-1.2); Monocytes Percent Auto 8.5 % (2-11); Neutrophils Absolute Auto 4.2 x10*3/uL (2.0-8.3); Neutrophils Percent Auto 61.2 % (45-73); Platelet Count 186 X10*3/uL (160-400); Red Blood Count 3.68 X10*6/uL (4.20-5.50); Red Cell Distribution Width 14.8 % (11.0-16.0); White Blood Count 6.9 X10*3/uL (4.8-10.8)
[2024-02-09 05:44] LABS: Anion Gap 11 (12-20); Blood Urea Nitrogen 21 mg/dL (9-16); Calcium 8.4 mg/dL (8.4-10.2); Carbon Dioxide 24 mmol/L (22-29); Chloride 108 mmol/L (96-108); Creatinine Clr Calc Pharmacy 69.8; Estimated Glomerular Filt Rate > 60; Glucose Fasting 98 mg/dL (60-99); Potassium 4.2 mmol/L (3.3-5.1); Sodium 139 mmol/L (135-145)
[2024-02-09] MEDS: oxyCODONE HCl Immed Release 5 MG TABLET 10 MG PO ×2 (06:44→11:34)
[2024-02-09] MEDS: Acetaminophen 325 MG TABLET 650 MG PO (06:44)
--- NOTE | 2024-02-09 07:19 | PM.DS ---
DS: Providers Provider Date of Service: 02/09/24 Date of admission: 02/07/24 10:02 Primary care physician: Carlito Gill MD Consults: 02/07/24 17:58 Consult to Hospitalist Routine Comment: Consulting Provider: Hospitalist Reason For Exam: Routine medical management DS: Diagnosis Discharge Diagnosis (1) Status post total right knee replacement: Status: Acute DS: Summary Hospital Course Hospital Course: The patient underwent a successful right total knee arthroplasty, they were transferred to PACU and then to the floor to recover. During their stay, their vitals were stable, afebrile at 97.5. Labs were unremarkable, H/H 10.2/31.9. POD 1 they were started on Aspirin 325mg po bid for DVT ppx, they also received Physical Therapy services twice a day. Prior to discharge, their dressing was clean dry and intact and the plan was to be discharged home with VNA services. Time Attestation Discharge Coordination Time (in mins): 30 Quality: Safe Use of Opioids Does Pt have an Active Cancer Diagnosis on the Problem List?: No Quality: Stroke Does the patient have a stroke diagnosis?: No Physical Exam Vital Signs: Vital Signs: Last Vital Signs Temp 97.5 F 02/09/24 03:25 Pulse 59 02/09/24 03:25 Resp 18 02/09/24 03:46 BP 101/60 02/09/24 03:25 Pulse Ox 93 02/09/24 03:25 O2 Del Method Room Air 02/09/24 03:25 O2 Flow Rate 97 02/07/24 20:00 BMI result Body Mass Index 31.8 Const: General: cooperative, healthy appearing and no acute distress Resp: Effort & Inspection: normal respiratory effort and able to speak in complete sentences Cardio: Rate: regular rate Peripheral pulses: Peripheral pulses 2+ throughout GI: Palpation (GI): Soft to palpation Skin: Lesions: no lesions Rashes: no rashes Extrem: Other: right knee dressing is c/d/i. Able to dorsi/plantar flex. Calf is supple and nontender. Sensation intact. Pedal pulse intact. DS: Data Data Completed and Pending Pending studies at discharge: Pending at discharge 02/07/24 13:35 Surgical [PTH] Routine Labs on day of discharge: Laboratory Results - last 24 hr 02/09/24 05:11 WBC 6.9 RBC 3.68 L Hgb 10.2 L Hct 31.9 L MCV 86.7 MCH 27.7 MCHC 32.0 RDW 14.8 Plt Count 186 MPV 9.6 Immature Gran % (Auto) 0.3 Neut % (Auto) 61.2 Lymph % (Auto) 26.5 Bell % (Auto) 8.5 Eos % (Auto) 3.2 Baso % (Auto) 0.3 Lymph # (Auto) 1.8 [place] # (Auto) 0.6 Eos # (Auto) 0.2 Baso # (Auto) 0.0 Abs Immat Gran (auto) 0.02 Absolute Neuts (auto) 4.2 Absolute Nucleated RBC 0.000 Nucleated RBC % (auto) 0.0 Sodium 139 Potassium 4.2 Chloride 108 Carbon Dioxide 24 Anion Gap 11 L BUN 21 H Creatinine 0.82 Estim Creat Clear Calc 69.8 Estimated GFR > 60 Fasting Glucose 98 Calcium 8.4 D Discharge Plan Discharge Anticipated Discharge Date/Time: 02/09/24 13:00 Patient Disposition: Home Health Service Discharge Diagnosis: s/p RTKA Referrals: Vanessa Stout PA-C [Physician Record Center Coordinator] - 02/24/24 2:15 pm Discharge Medications: New methocarbamol 500 mg Tablet 500 mg PO TID 7 Days Qty: 21 0RF acetaminophen 325 mg Tablet 650 mg PO Q6H PRN (Reason: Pain, Mild (Pain Scale 1-3)) 30 Days Qty: 240 0RF aspirin 325 mg Tablet 325 mg PO BID 42 Days Qty: 84 0RF celecoxib 200 mg Capsule 200 mg PO BID 30 Days Qty: 60 0RF oxycodone 10 mg tablet 10 mg PO Q4H PRN (Reason: Pain, Moderate(Pain Scale 4-6)) 7 Days Qty: 42 0RF Rx Instructions: Partial Fill upon patient request. docusate sodium 100 mg Capsule 100 mg PO BID 30 Days Qty: 60 0RF Continued (DME) maximus Kolbc See Rx Instructions .ROUTE .MEDSUPPLY Qty: 1 0RF Rx Instructions: Folding front wheeled walker oxycodone 5 mg tablet 5 mg PO Q12H PRN (Reason: pain) Qty: 40 0RF Rx Instructions: Partial Fill upon patient request. gabapentin 100 mg Capsule 200 mg PO BEDTIME magnesium hydroxide 311 mg Tablet,Chewable 311 mg PO BEDTIME gabapentin 100 mg capsule 100 mg PO BID@0900,1200 cholecalciferol (vitamin D3) 50 mcg (2,000 unit) tablet 50 mcg PO DAILY@1700 atenolol 25 mg tablet 25 mg PO BEDTIME cimetidine 300 mg tablet 300 mg PO BID ferrous sulfate 325 mg (65 mg iron) tablet 325 mg PO Q OTHER DAY Discontinued (DME) Knee brace Misc See Rx Instructions .Route Qty: 1 0RF Rx Instructions: As directed aspirin [Aspirin Low-Strength] 81 mg Tablet,Delayed Release (Dr/Ec) 81 mg PO DAILY ibuprofen 800 mg tablet 800 mg PO DAILY Discharge Orders: Discharge Order (Routine); Ordered 02/09/24 Ordered By: Vanessa Stout Diet: Advance to usual diet Activity on Discharge: Use cane or walker Stand Alone Forms: Patient Portal Discharge page Care Plan Goals: restore fxn to right knee Health Concerns: None Plan of Treatment: Physical Therapy for ROM 0-120, quad strength, gait training. Use walker for ambulation Limit stair climbing, No shower, No tub bath, No driving Continue anticoagulant Keep Aquacel dressing clean, dry and intact. Follow up with orthopedics in 2 weeks Assessment: Stable for discharge
--- NOTE | 2024-02-09 07:20 | P.F2F_ITS ---
Service Date Service Date: 02/09/24 Encounter Date of encounter: 02/09/24 Reasons for Services Signs and symptoms assessed: s/p RTKA. Pt. is considered homebound due to recent surgery. Unable to drive, poor balance, poor gait mechanics. Reason for physical therapy: home safety and mobility, therapeutic exercises, restore joint function, gait/transfer training, assess need for DME and ADL training Homebound: Leaving the home is medically contraindicated at this time without the asist of a device and/or another person due th the listed conditions above and below. Reason homebound: unsteady gait / fall risk, leg weakness, pain with ambulation, pain with transfers, poor balance / fall risk and unable to drive Certification: Based on the above findings, I certify that this patient is confined to the home and needs intermittent long term care, physical therapy and/or speech therapy, or continues to need occupational therapy. The patient is under my care, and I have initiated the establishment of the plan of care. The patient will be followed by a physician who will periodically review the plan of care. Time Spent With Patient Time: Total time managing care of this patient today ____ minutes.
[2024-02-09 07:29] VITALS: BP 125/62; PULSE 70; RESP 18; TEMP 36.6; O2SAT 94
[2024-02-09] MEDS: Famotidine 20 MG TABLET PO (08:16)
[2024-02-09] MEDS: methocarbamoL 500 MG TABLET PO (08:17)
[2024-02-09] MEDS: oxyCODONE HCl ER 10 MG TAB.ER.12H PO (08:17)
[2024-02-09] MEDS: Celecoxib 200 MG CAPSULE PO (08:17)
[2024-02-09] MEDS: Docusate Sodium 100 MG CAPSULE PO (08:17)
[2024-02-09] MEDS: Aspirin 325 MG TABLET PO (08:17)
--- NOTE | 2024-02-11 10:28 | P.BOP_ITS ---
Brief Operative Note Date of Service: 02/07/24 Pre-op diagnosis: Right knee degenerative joint disease Post-op diagnosis: same Procedure: Right total knee arthroplasty Implants: Leonard Triathlon cemented posterior stabilized total knee arthroplasty with a femoral component size 4 right, universal tibial component size 5, polyethylene liner size 5 with 10 mm of thickness, a tibial stem size 12 mm in diameter by 50 mm in length, an asymmetric patellar component size 32 with 10 mm of thickness Surgeon: Herbert Rodriguez MD Anesthesia: regional and spinal Was an Tabulating Machine Mechanic used for this Procedure?: Yes Tabulating Machine Mechanic: Vanessa Stout Estimated blood loss (mL): 200 Pathology: other (Bony fragments from the right femur, tibia and patella) Condition: stable Disposition: PACU
--- NOTE | 2024-02-11 10:30 | P.OP_ITS ---
Operative Note Operative Note Date of Service: 02/07/24 Narrative: After the patient was identified as Antonietta Tijerina and her right knee was initialed by myself the patient was brought to the holding area where a right leg nerve block was performed by the anesthesiologist in routine fashion. The patient was then brought to the operating room where conscious sedation and spinal anesthesia were performed by the anesthesiologist in routine fashion. Because of the patient's allergy to penicillin she was given 900 mg of IV clindamycin preoperatively for infection prophylaxis. The patient's right lower extremity was prepped and draped in sterile fashion. A formal time-out was c ompleted. The patient's right knee was placed onto a small bump to produce 30? of knee flexion during exposure. A #10 scalpel blade was used to make a midline incision extending 1 handbreadth proximal and distal to the patella. A second #10 scalpel blade was used to dissect the subcutaneous tissues down to the extensor mechanism. The subcutaneous flaps were maintained as thick as possible. A medial parapatellar arthrotomy was then performed using a #10 scalpel blade. The arthrotomy was begun just medial to the patellar tendon. The arthrotomy was continued 1 cm medial to the patella and then 5 mm into the medial aspect of the quadriceps tendon. The infrapatellar fat pad was partially excised to help with exposure. The soft tissue retinaculum was raised one-half of the way around the medial aspect of the proximal tibia. The patella was everted and the knee was flexed to 90?. There was no injury to the patellar tendon or its insertion onto the tibial tubercle. A drill bit was introduced into the distal aspect of the femur with a starting point 1 cm anterior to the origin of the posterior cruciate ligament. The intramedullary alignment nidhi was put into place. The distal alignment guide was set for a 5 degree valgus cut. The distal cutting block was put into place and was held with 4 pins. The intramedullary alignment nidhi was removed. Soft tissues were retracted in the distal femoral cut was made using a sagittal saw. The distal aspect of the femur measured to be a size 4 right component. Two drill holes were placed into the distal aspect of the femur marking 3? of external rotation. The distal cutting block was impacted into place and was held with 2 pins. Soft tissues were retracted and the 4 distal femoral cuts were made using a sagittal saw. Final notching and drilling of the distal aspect of the femur were performed in routine fashion. The trial femoral component was impacted into place. The knee was taken through a full range of motion. The patella tracked well. The patella was everted and the knee was flexed to 90?. The trial component was removed and our attention was directed to the proximal tibia. The medial and lateral menisci were removed using a #10 scalpel blade. A small rim of the medial meniscus was left intact to help prevent injury to the medial collateral ligament. A drill bit was then introduced into the proximal tibia with a starting point midway from medial to lateral and one-third of the way posteriorly. The intramedullary alignment nidhi was put into place. The proximal tibial cutting guide was placed over the alignment nidhi in line with the 2nd toe. The guide was held in place using 3 pins. The intramedullary alignment nidhi was removed. Soft tissues were retracted and the proximal tibial cut was made using a sagittal saw. Inspection of the proximal tibia showed a bony cyst measuring 5 mm x 5 mm x 10 mm along the medial tibial plateau. Because of the presence of the cyst the decision was made to use a tibial stem in order to help prevent loosening of the tibial component in the future. The proximal tibia measured to be a size 5 component. The tibial tray was put into place with a 10 mm liner. The femoral component was impacted into place. The knee was taken through a full range of motion. There was full flexion and full extension. There was no instability with varus or valgus stress testing with the knee in flexion or extension. The patella tracked well with no medially directed force. The rotation of the tibial tray was marked using electrocautery with the knee in extension. The patella was everted and the knee was flexed to 90?. All trial components were removed. The tibial tray was placed onto the proximal tibia in line with the electrocautery harsh. The tray was held in place using 3 pins. Final broaching and drilling of the proximal tibia were performed in routine fashion. The trial liner and trial femoral component were put into place. The knee was brought into extension and our attention was directed to the patella. The patella measured 25 mm in thickness. The patellar resection guide was set for a 10 mm resection. Soft tissues were retracted and the patella cut was made using a sagittal saw. The remaining patella measured 15 mm in thickness. The undersurface of the patella was measured to be a size 32 asymmetric component. Three drill holes were placed into the undersurface of the patella in routine fashion. The trial component was put into place. The knee was taken through a full range of motion. The patella tracked well. The patella was everted and the knee was flexed to 90?. All trial components were removed. The knee was once again brought into extension and placed onto a small bump. The knee joint was irrigated with copious amounts of normal saline solution via pulse lavage while the cement was mixed. The patella was everted and the knee was flexed to 90?. A small amount of cement was placed along the posterior aspects of the tibial and femoral components. Cement was then pressurized into the proximal tibia. The tibial component was impacted into place. Any excess cement was removed. The polyethylene liner was then impacted into place. Cement was then pressurized into the distal aspect of the femur. A small amount of cement was placed into the intramedullary canal to help reduce bleeding. The femoral component was impacted into place. Any excess cement was removed. The knee was then brought into extension. Cement was pressurized into the undersurface of the patella. The patellar component was put into place and was held with a patella clamp. Any excess cement was removed. Once the cement had hardened the patellar clamp was removed. The knee was taken through a full range of motion. There was full flexion and extension. There was no instability with varus or valgus stress testing with the knee in flexion or extension. The patella tracked well with no medially directed force. The knee joint was irrigated with copious amounts of normal saline solution via pulse lavage. Any significant bleeding vessels were coagulated. The patient's right knee was placed onto a small bump. The arthrotomy was closed with #2 Ethibond [id number] interrupted suture as well as #1 Vicryl [id number] interrupted suture. The wound was once again irrigated. The subcutaneous tissues were closed with 0 Vicryl and 2-0 Vicryl interrupted sutures. The skin was closed with skin reina. Dry sterile dressing and Shravan bandages were placed over the patient's right knee. The patient was awake and alert. The patient was transferred to the recovery room in stable condition.
== END 2024-02-09 12:57 | disposition home health service (06) | DRG 470 ==
LOC: HO.SSSA 10:07 → HO.S3 14:54 → HO.SSSA 15:08 → HO.S3 17:04
PROVIDERS: Anesthesiology; Physician Assistant; Admitting Provider Orthopaedic Surgery; PCP Internal Medicine; Visit Provider Orthopaedic Surgery
PROC: 0SRC0J9 Replacement of Right Knee Joint with Synthetic Substitute, Cemented, Open Approach (ICD-10-PCS; CPT 27447; principal; 2024-02-07 12:40)
DX: M17.11 Unilateral primary osteoarthritis, right knee (principal); I47.10 Supraventricular tachycardia, unspecified; I10 Essential (primary) hypertension; D50.9 Iron deficiency anemia, unspecified; G89.18 Other acute postprocedural pain; Z87.891 Personal history of nicotine dependence; Z79.899 Other long term (current) drug therapy
CPT/HCPCS: 36415; 80048; 85025; 85027; 86850; 86900; 86901; 87640; 87641; 88305; 88311; 97110; 97116; 97162; 97530; C1776; J0131; J0665; J0736; J1100; J1170; J2250; J2371; J2704; J2795; J3010; J3370; J7120

== ENCOUNTER → 2024-02-07 10:02 | Outpatient (BNV) | payer MEDICARE, SELFPAY | PROVIDERS: Admitting Provider Orthopaedic Surgery; PCP Internal Medicine; Visit Provider Nurse Practitioner Acute Care | DX: D50.9 Iron deficiency anemia, unspecified (principal); Z96.651 Presence of right artificial knee joint | CPT/HCPCS: 99221 ==

== ENCOUNTER → 2024-02-07 10:02 | Outpatient (BNV) | payer MEDICARE, SELFPAY | PROVIDERS: Admitting Provider Orthopaedic Surgery; PCP Internal Medicine; Visit Provider Physician Assistant | DX: Z96.651 Presence of right artificial knee joint (principal) | CPT/HCPCS: 27447; 99024; G0180 ==

== ENCOUNTER 2024-02-14 13:56 | Outpatient (REF) | payer MEDICARE, SELFPAY ==
--- NOTE | ~2024-02-14 | US_ITS ---
EXAMINATION: US VENOUS ULTRASOUND WITH DOPPLER LOWER EXTREMITY, RIGHT CLINICAL INFORMATION: Edema, status post total knee replacement COMPARISON: None available. TECHNIQUE: Ultrasound of the deep veins is performed from the hip to the calf with compression sonography and color and pulse Doppler assessment. Spectral analysis with color-flow imaging is performed. FINDINGS: There is normal venous compression and respiratory variation and augmented flow. The visualized common femoral vein, superficial femoral vein, profunda femoral vein, popliteal vein, and the trifurcation region shows no evidence of deep venous thrombosis. There is a medial base popliteal fossa cyst/joint fluid collection. There are several typical appearing lymph nodes in the right groin and proximal thigh which have benign appearance. If the patient's symptoms persist, followup ultrasound in 5 days 7 days might be of value to exclude proximal propagation from a non-visualized calf vein. US/US venous duplex LE RT IMPRESSION: 1. No DVT demonstrated in the right lower extremity. 2. Small Quintana's cyst/joint fluid collection, medial aspect. 3. Several benign-appearing lymph nodes in the right groin and proximal thigh.
== END 2024-02-14 13:57 | disposition home or self-care (01) ==
LOC: HO.US 13:56
PROVIDERS: PCP Internal Medicine; Visit Provider Physician Assistant
DX: R60.9 Edema, unspecified (principal); M71.21 Synovial cyst of popliteal space [Baker], right knee; Z96.651 Presence of right artificial knee joint
CPT/HCPCS: 93971

== ENCOUNTER 2024-02-24 10:09 | Outpatient (REF) | payer MEDICARE, SELFPAY ==
--- NOTE | ~2024-02-24 | XR_ITS ---
EXAMINATION: XR KNEE, RIGHT CLINICAL INFORMATION: Pain in unspecified knee. COMPARISON: Right knee 05/26/2023. TECHNIQUE: AP standing view of bilateral knees as well as lateral and sunrise views of the right knee. FINDINGS: Status post interval right knee total arthroplasty with anatomic alignment. Hardware appears intact. Expected postoperative changes with large joint effusion, soft tissue swelling and anterior skin reina. Single AP standing view of the left knee demonstrate severe narrowing of the medial compartment with small marginal osteophytes. XR/XR knee RT 3V IMPRESSION: Status post interval right knee total arthroplasty with anatomic alignment. Hardware appears intact. Expected postoperative changes.
== END 2024-02-24 10:10 | disposition home or self-care (01) ==
LOC: HO.HOSX 10:09
PROVIDERS: Visit Provider Physician Assistant
DX: M25.561 Pain in right knee (principal); Z47.1 Aftercare following joint replacement surgery; Z96.651 Presence of right artificial knee joint
CPT/HCPCS: 73562; 99212

== ENCOUNTER 2024-02-24 14:06 | Outpatient (AMB) | payer MEDICARE, SELFPAY ==
--- NOTE | 2024-02-24 14:37 | A.OFFVIS_ITS ---
Intake Intake Visit Reasons: PO right TKA 02/07/24 with Intake Note: Antonietta is a 73 year old female who presents today for a post operative appointment s/p right TKA 02/07/24 with . Patient reports still having pain. Allergies Penicillins Allergy (Intermediate, Verified 02/24/24 14:37) Hives meperidine [From Demerol] Allergy (Mild, Verified 02/24/24 14:37) Hives diclofenac [From Voltaren] Allergy (Unknown, Verified 02/24/24 14:37) Unknown epinephrine Adverse Reaction (Intermediate, Verified 02/24/24 14:37) tachycardia HPI PO right TKA 02/07/24 with HPI Details 73-year-old female who presents in the o ice today 17 days status post right total knee arthroplasty, which was performed on 02/07/[address] Pineda. Patient reports she is still having pain. [facility] Medical History (Updated 02/11/24 @ 00:03 by Karina Presley) Arthritis Murmur HTN (hypertension) Pericardial effusion SVT (supraventricular tachycardia) Osteopenia Osteoarthritis Migraine IBS (irritable bowel syndrome) Hiatal hernia GERD (gastroesophageal reflux disease) Diverticulosis Ascending aorta dilation Aortic valve disease Anemia Surgical History (Updated 02/24/24 @ 15:04 by Kandace Vora) History of esophagogastroduodenoscopy (EGD) H/O colonoscopy History of cervical discectomy Hx of section Hx of tonsillectomy Hx of cholecystectomy Social History Household Members: Spouse Housing: House Are you a primary administrator health care facility to a significant other at home: No Do you presently have visiting nurse or other home services: No Patient Tobacco Use Status: Former Tobacco user service: No Current occupational status: retired 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 [place] intact. No surround ing erythema or drainage. No signs of infection. ROM is 0-120 degrees. NVI. Assessment & Plan Assessment & Plan (1) Status post total right knee replacement: Onset Date: ~02/07/24 Comment: Dr. Rodriguez Code(s): Z96.651 - Presence of right artificial knee joint Plan Ms. Tijerina is a 73-year-old female who presents in the office today 17 days status post right total knee arthroplasty, which was performed on 02/07/[address] Pineda. Patient reports she is still having pain. The patient would like to continue to work with PT at home due to being unable t o drive or have transportation. Follow up will be in [address] Pineda, or sooner if needed. I sent a prescription for an antibiotic prophylactically for possible dental work in the future. However, the patient was educated they should not have any major dental work for the first 3 months post op after the right total knee arthroplasty. Current pain regiment: -Acetaminophen 650 mg PO Q6H PRN -Oxycodone 5 mg PO Q4-6H PRN Orders: Orders XR knee RT 3V Today M25.569 - Pain in unspecified knee Patient Instructions: Scribed by Kandace Vora curator medical museum, for Vanessa Stout PA-C on 02/24/2024 at 2:22 pm, EST. Coding Level of Care Code Global (12099) Diagnoses Status post total right knee replacement Z96.651
== END 2024-02-24 15:08 | disposition home or self-care (01) ==
PROVIDERS: PCP Internal Medicine; Visit Provider Physician Assistant
DX: Z96.651 Presence of right artificial knee joint (principal)
CPT/HCPCS: 99024

== ENCOUNTER 2024-03-16 09:02 | Outpatient (AMB) | payer MEDICARE, SELFPAY ==
--- NOTE | 2024-03-16 09:11 | MHC.OFFVIS ---
Intake Visit Reasons: 6 wk PO right TKA 02/07/24 with Intake Note: Antonietta is a 73 year old female who presents for a post operative appointment s/p right TKA 02/07/24 . The patient reports mild to moderate discomfort in her knee. She denies any fevers or chills. She continues with her physical therapy exercises. She does take oxycodone as needed for discomfort. Allergies Penicillins Allergy (Intermediate, Verified 03/16/24 09:17) Hives meperidine [From Demerol] Allergy (Mild, Verified 03/16/24 09:17) Hives diclofenac [From Voltaren] Allergy (Unknown, Verified 03/16/24 09:17) Unknown epinephrine Adverse Reaction (Intermediate, Verified 03/16/24 09:17) tachycardia Medication List - Last Reconciled 03/16/24 by Herbert Rodriguez MD acetaminophen 650 mg (2 x 325 mg) PO Q6H PRN 30 days aspirin 325 mg PO BID 42 days atenolol 25 mg PO BEDTIME celecoxib 200 mg PO BID 30 days cholecalciferol (vitamin D3) 50 mcg PO DAILY@1700 cimetidine 300 mg PO BID docusate sodium 100 mg PO BID 30 days ferrous sulfate 325 mg PO Q OTHER DAY gabapentin 200 mg PO BEDTIME gabapentin 100 mg PO BID@0900,1200 magnesium hydroxide 311 mg PO BEDTIME methocarbamol 500 mg PO TID 7 days oxycodone 5 mg PO Q12H PRN oxycodone 5 mg PO Q6H PRN 10 days walker Folding front wheeled walker [facility] Medical History Arthritis Murmur HTN (hypertension) Pericardial effusion SVT (supraventricular tachycardia) Osteopenia Osteoarthritis Migraine IBS (irritable bowel syndrome) Hiatal hernia GERD (gastroesophageal reflux disease) Diverticulosis Ascending aorta dilation Aortic valve disease Anemia Surgical History History of esophagogastroduodenoscopy (EGD) H/O colonoscopy History of cervical discectomy Hx of section Hx of tonsillectomy Hx of cholecystectomy Social History Household Members: Spouse Housing: House Are you a primary career coach to a significant other at home: No Do you presently have visiting nurse or other home services: No Patient Tobacco Use Status: Former Tobacco user service: No Current occupational status: retired 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 Tijerina continues to do very well after undergoing right total knee replacement surgery on 02/03/2024. She will continue with her physical therapy exercises. She does know to take antibiotics before any dental work. The patient does have a small amount of redness along the proximal aspect of her incision most likely due to a suture abscess. I did place her on Levaquin until the redness resolves. She will contact me prior to her follow-up appointment in 6 weeks should any questions or concerns arise. Feel free to call me at any time should questions regarding her orthopedic management arise. Medications: New levofloxacin 250 mg PO DAILY 10 tabs 0RF cyclobenzaprine 5 mg PO Q12H PRN 30 tabs 2RF muscle spasm Refilled oxycodone Partial Fill upon patient request. 5 mg PO Q6H 10 days PRN 35 tabs 0RF pain Coding Level of Care Code Global (33711) Diagnoses Right knee pain M25.561
== END 2024-03-16 09:48 | disposition home or self-care (01) ==
PROVIDERS: PCP Internal Medicine; Visit Provider Orthopaedic Surgery
DX: M25.561 Pain in right knee (principal)
CPT/HCPCS: 99024

== ENCOUNTER → 2024-03-16 09:02 | Outpatient (BNVA) | payer MEDICARE, SELFPAY | PROVIDERS: PCP Internal Medicine; Visit Provider Orthopaedic Surgery | DX: M25.561 Pain in right knee (principal) | CPT/HCPCS: 99212 ==

== ENCOUNTER 2024-04-27 11:27 | Outpatient (AMB) | payer MEDICARE, SELFPAY ==
--- NOTE | 2024-04-27 11:29 | A.OFFVIS_ITS ---
Intake Visit Reasons: PO right TKA 02/07/[address] Arthritis of left knee Intake Note: Antonietta is a 74 year old female who presents to the office today for a PO right TKA 02/07/24. Pt states she is doing well and states she has noticed some improvements with ROM, walking, and less pain. The patient does report p rogressively worsening left knee pain. She has had injections in the past which gave her fairly good relief. She has tried Tylenol and anti-inflammatory medicines which gave her only mild relief. She would like to hold off on left total knee replacement surgery for as long as possible. Allergies Penicillins Allergy (Intermediate, Verified 04/27/24 11:40) Hives meperidine [From Demerol] Allergy (Mild, Verified 04/27/24 11:40) Hives diclofenac [From Voltaren] Allergy (Unknown, Verified 04/27/24 11:40) Unknown epinephrine Adverse Reaction (Intermediate, Verified 04/27/24 11:40) tachycardia Medication List - Last Reconciled 04/27/24 by Herbert Rodriguez MD acetaminophen 650 mg (2 x 325 mg) PO Q6H PRN 30 days aspirin 325 mg PO BID 42 days atenolol 25 mg PO BEDTIME cholecalciferol (vitamin D3) 50 mcg PO DAILY@1700 cimetidine 300 mg PO BID cyclobenzaprine 5 mg PO Q12H PRN docusate sodium 100 mg PO BID 30 days ferrous sulfate 325 mg PO Q OTHER DAY gabapentin 200 mg PO BEDTIME gabapentin 100 mg PO BID@0900,1200 magnesium hydroxide 311 mg PO BEDTIME oxycodone 5 mg PO Q12H PRN 15 days walker Folding front wheeled walker [facility] Medical History Arthritis Murmur HTN (hypertension) Pericardial effusion SVT (supraventricular tachycardia) Osteopenia Osteoarthritis Migraine IBS (irritable bowel syndrome) Hiatal hernia GERD (gastroesophageal reflux disease) Diverticulosis Ascending aorta dilation Aortic valve disease Anemia Surgical History History of esophagogastroduodenoscopy (EGD) H/O colonoscopy History of cervical discectomy Hx of section Hx of tonsillectomy Hx of cholecystectomy Social History Household Members: Spouse Housing: House Are you a primary hospice care transitions coordinator to a significant other at home: No Do you presently have visiting nurse or other home services: No Patient Tobacco Use Status: Former Tobacco user service: No Current occupational status: retired 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 Physical Exam Const Other: Well-nourished well-developed very friendly female awake alert and oriented x3 in no acute distress Extrem Other: Bilateral lower extremity examination shows good capillary refill, no skin lesions noted, normal sensation light touch Right knee examination shows that the surgical incision is well healed, no erythema, full active extension and flexion to 115 degrees, her patella tracks well Left knee examination shows a minimal effusion, palpable crepitus with range of motion, pain with range of motion, no instability Office Procedures Joint Injection/Drain Joint Injection/Drain Primary Site: left knee Prep: site was prepped using aseptic technique Injected: 40 mg of, DepoMedrol and 1% plain lidocaine Procedure: The patient tolerated the procedure well Coding 44759 - Large joint Procedure code (CPT) selection complete Results Reviewed Results Reviewed: X-rays of the patient's left knee show joint space narrowing, subchondral sclerosis, osteophyte formation, no acute bony abnormalities Assessment & Plan Assessment & Plan (1) Arthritis of left knee: Code(s): M17.12 - Unilateral primary osteoarthritis, left knee Category: Medical (2) Right knee pain: Code(s): M25.561 - Pain in right knee Category: Medical Plan Mrs. Tijerina continues to do well after undergoing right total knee replacement surgery on 02/03/2024. She does know to take antibiotics before any dental work. The patient does have progressively worsening left knee pain due to degenerative joint disease. I had a lengthy discussion with the patient regarding the treatment options. She wishes to hold off on left total knee replacement surgery for as long as possible. I agree with this plan. The risks and benefits of a left knee cortisone injection were discussed at length with the patient. The patient wished to proceed. She tolerated the injection well. She will continue with her home exercise program. She will contact me prior to her follow-up appointment in 3 months should any questions or concerns arise. Feel free to call me at any time should questions regarding her orthopedic management arise. I spent 20 minutes in reviewing the patient's records and imaging studies, seeing the patient and documenting in the medical record. Orders: Orders AMB Joint Injection/Aspiration Today M17.12 - Unilateral primary osteoarthritis, left knee Medications: New clindamycin HCl Take two caps (600 mg) one hour before any dental work 600 mg (2 x 300 mg) PO ONCE 20 caps 2RF Coding Level of Care Code Est Pt Level 3 (40568) Diagnoses Arthritis of left knee M17.12 Right knee pain M25.561 CPT Codes Coding - 30795 Large joint: 08066 - Large joint ([id number])
== END 2024-04-27 12:32 | disposition home or self-care (01) ==
PROVIDERS: PCP Internal Medicine; Visit Provider Orthopaedic Surgery
DX: M17.12 Unilateral primary osteoarthritis, left knee (principal); M25.561 Pain in right knee; Z96.651 Presence of right artificial knee joint
CPT/HCPCS: 20610; 99213

== ENCOUNTER → 2024-04-27 11:27 | Outpatient (BNVA) | payer MEDICARE, SELFPAY | PROVIDERS: PCP Internal Medicine; Visit Provider Orthopaedic Surgery | DX: Z47.89 Encounter for other orthopedic aftercare (principal); M17.12 Unilateral primary osteoarthritis, left knee; M25.561 Pain in right knee; Z98.890 Other specified postprocedural states | CPT/HCPCS: 20610; 99212; J3301 ==

== ENCOUNTER 2024-07-27 10:34 | Outpatient (REF) | payer MEDICARE, SELFPAY ==
--- NOTE | ~2024-07-27 | XR_ITS ---
EXAMINATION: XR KNEE, RIGHT CLINICAL INFORMATION: Right knee pain COMPARISON: 02/24/2024 TECHNIQUE: Three views of the right knee. FINDINGS: The total knee arthroplasty components are in the usual position and alignment without evidence of loosening or fracture. XR/XR knee RT 3V IMPRESSION: Stable, standard appearance of the right total knee arthroplasty. Electronically signed by: Kal Foss MD 08/02/2024 12:52 PM EDT
== END 2024-07-27 10:35 | disposition home or self-care (01) ==
LOC: HO.XRAY 10:34
PROVIDERS: PCP Internal Medicine; Visit Provider Orthopaedic Surgery
DX: M17.12 Unilateral primary osteoarthritis, left knee (principal); M25.561 Pain in right knee
CPT/HCPCS: 20610; 73562; 99212; J1010

== ENCOUNTER 2024-07-27 11:25 | Outpatient (AMB) | payer MEDICARE, SELFPAY ==
--- NOTE | 2024-07-27 11:28 | MHC.OFFVIS ---
Intake Visit Reasons: OV-right TKA 02/07/[address]-3 month follow up, left knee pain Intake Note: Antonietta is 74 year old female that present to the office today for a 3 month follow up for right knee pain. Pt states she is doing okay but states her left knee is really bothering her and states the last cortisone injection done on 04/27/24 did help a little and she would like another injection today since she wants to hold off on a left TKA until next year. Done physical therapy exercises which aggravated her pain. The patient has difficulty walking even short distances because of her left knee pain. At this point her left knee pain is interfering with her activities of daily living and her ability to sleep well through night. She has taken Tylenol and anti-inflammatory medicines which gave her minimal relief. Allergies Penicillins Allergy (Intermediate, Verified 07/27/24 11:28) Hives meperidine [From Demerol] Allergy (Mild, Verified 07/27/24 11:28) Hives diclofenac [From Voltaren] Allergy (Unknown, Verified 07/27/24 11:28) Unknown epinephrine Adverse Reaction (Intermediate, Verified 07/27/24 11:28) tachycardia Medication List - Last Reconciled 07/27/24 by Herbert Rodriguez MD acetaminophen 650 mg (2 x 325 mg) PO Q6H PRN 30 days aspirin 325 mg PO BID 42 days atenolol 25 mg PO BEDTIME cholecalciferol (vitamin D3) 50 mcg PO DAILY@1700 cimetidine 300 mg PO BID clindamycin HCl 600 mg (2 x 300 mg) PO ONCE cyclobenzaprine 5 mg PO Q12H PRN docusate sodium 100 mg PO BID 30 days ferrous sulfate 325 mg PO Q OTHER DAY gabapentin 200 mg PO BEDTIME gabapentin 100 mg PO BID@0900,1200 magnesium hydroxide 311 mg PO BEDTIME oxycodone 5 mg PO Q24H PRN 15 days walker Folding front wheeled walker [facility] Medical History Arthritis Murmur HTN (hypertension) Pericardial effusion SVT (supraventricular tachycardia) Osteopenia Osteoarthritis Migraine IBS (irritable bowel syndrome) Hiatal hernia GERD (gastroesophageal reflux disease) Diverticulosis Ascending aorta dilation Aortic valve disease Anemia Surgical History History of esophagogastroduodenoscopy (EGD) H/O colonoscopy History of cervical discectomy Hx of section Hx of tonsillectomy Hx of cholecystectomy Social History Household Members: Spouse Housing: House Are you a primary healthcare network pricing consultant to a significant other at home: No Do you presently have visiting nurse or other home services: No Patient Tobacco Use Status: Former Tobacco user service: No Current occupational status: retired 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 Physical Exam Const Other: Well-nourished well-developed very friendly female awake alert and oriented x3 in no acute distress Extrem Other: Bilateral lower extremity examination shows good capillary refill, no skin lesions noted, normal sensation light touch Right knee examination shows that the surgical incision is well healed, no erythema, full active extension and flexion to 120 degrees, her patella tracks well Left knee examination shows a minimal effusion palpable crepitus with range of motion, pain with range of motion, no instability Office Procedures Joint Injection/Aspiration Joint Injection/Aspiration Primary Site: left knee Prep: site was prepped using aseptic technique Injected: 40 mg of, DepoMedrol and 1% plain lidocaine Procedure: The patient tolerated the procedure well Coding 80113 - Large joint Procedure code (CPT) selection complete Results Reviewed Results Reviewed: X-rays of the patient's right knee taken today show a total knee arthroplasty in good position with no signs of loosening, no acute bony abnormalities X-rays of the patient's left knee taken previously show joint space narrowing, subchondral sclerosis, osteophyte formation, no acute bony abnormalities Assessment & Plan Assessment & Plan (1) Arthritis of left knee: Code(s): M17.12 - Unilateral primary osteoarthritis, left knee Category: Medical Plan Mrs. Tijerina continues to do well after undergoing right total knee replacement surgery on 02/03/2024. She does know to take antibiotics before any dental work. The patient does have progressively worsening left knee pain due to severe degenerative joint disease. The risks and benefits of a left knee cortisone injection were discussed at length with the patient. Wished to proceed. She tolerated the injection well. I also gave her a prescription for tramadol help with her pain. She will contact me prior to her follow-up appointment in 3 months should any questions or concerns arise. Feel free to call me at any time should questions regarding her orthopedic management arise. I spent 22 minutes in reviewing the patient's records and imaging studies, seeing the patient and documenting in the medical record. Orders: Orders XR knee RT 3V Today M25.561 - Pain in right knee AMB Joint Injection/Aspiration Today M17.12 - Unilateral primary osteoarthritis, left knee Medications: New tramadol 50 mg PO Q8H PRN 60 tabs 0RF pain Coding Level of Care Code Est Pt Level 3 (07624) Complex EM visit Add On G2211 Diagnoses Arthritis of left knee M17.12 CPT Codes Coding - 00370 Large joint: 39340 - Large joint ([id number])
== END 2024-07-27 12:02 | disposition home or self-care (01) ==
LOC: HO.HOS 11:26
PROVIDERS: PCP Internal Medicine; Visit Provider Orthopaedic Surgery
DX: M17.12 Unilateral primary osteoarthritis, left knee (principal)
CPT/HCPCS: 20610; 99213

== ENCOUNTER 2024-08-24 09:42 | Outpatient (AMB) | payer MEDICARE, SELFPAY ==
--- NOTE | 2024-08-24 09:51 | MHC.OFFVIS ---
Intake Visit Reasons: Right shoulder pain Intake Note: Antonietta is a 74 year old right hand dominant female who presents with complaints of progressively worsening right shoulder pain. The patient describes her pain as sharp in nature. Her pain has gotten worse over the last few years in spite of continued non operative treatments. She does report weakness when lifting her right hand above shoulder height. She has done physical therapy exercises which aggravated her pain. She has also tried Tylenol and anti-inflammatory medicines which gave her minimal relief. Allergies Penicillins Allergy (Intermediate, Verified 08/24/24 09:51) Hives meperidine [From Demerol] Allergy (Mild, Verified 08/24/24 09:51) Hives diclofenac [From Voltaren] Allergy (Unknown, Verified 08/24/24 09:51) Unknown epinephrine Adverse Reaction (Intermediate, Verified 08/24/24 09:51) tachycardia Medication List - Last Reconciled 08/24/24 by Herbert Rodriguez MD acetaminophen 650 mg (2 x 325 mg) PO Q6H PRN 30 days aspirin 325 mg PO BID 42 days atenolol 25 mg PO BEDTIME cholecalciferol (vitamin D3) 50 mcg PO DAILY@1700 cimetidine 300 mg PO BID clindamycin HCl 600 mg (2 x 300 mg) PO ONCE cyclobenzaprine 5 mg PO Q12H PRN docusate sodium 100 mg PO BID 30 days ferrous sulfate 325 mg PO Q OTHER DAY gabapentin 200 mg PO BEDTIME gabapentin 100 mg PO BID@0900,1200 magnesium hydroxide 311 mg PO BEDTIME oxycodone 5 mg PO Q24H PRN 15 days tramadol 50 mg PO Q8H PRN walker Folding front wheeled walker [facility] Medical History Arthritis Murmur HTN (hypertension) Pericardial effusion SVT (supraventricular tachycardia) Osteopenia Osteoarthritis Migraine IBS (irritable bowel syndrome) Hiatal hernia GERD (gastroesophageal reflux disease) Diverticulosis Ascending aorta dilation Aortic valve disease Anemia Surgical History History of esophagogastroduodenoscopy (EGD) H/O colonoscopy History of cervical discectomy Hx of section Hx of tonsillectomy Hx of cholecystectomy Social History Household Members: Spouse Housing: House Are you a primary health care coach to a significant other at home: No Do you presently have visiting nurse or other home services: No Patient Tobacco Use Status: Former Tobacco user service: No Current occupational status: retired 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 Physical Exam Const Other: Well-nourished well-developed very friendly female awake alert and oriented x3 in no acute distress Extrem Other: Bilateral upper extremity examination shows good capillary refill, no skin lesions noted, normal sensation light touch Right shoulder examination shows decreased range of motion when compared to her left shoulder, 3/5 strength with supraspinatus testing, positive impingement signs, no instability Office Procedures Joint Injection/Aspiration Joint Injection/Aspiration Primary Site: right shoulder Prep: site was prepped using aseptic technique Injected: 40 mg of, DepoMedrol and 1% plain lidocaine Procedure: The patient tolerated the procedure well Coding 09906 - Large joint Procedure code (CPT) selection complete Results Reviewed Results Reviewed: X-rays of the patient's right shoulder show severe glenohumeral joint degenerative changes as well as a high-riding humeral head consistent with chronic rotator cuff tearing Assessment & Plan Assessment & Plan (1) Arthritis of right shoulder region: Code(s): M19.011 - Primary osteoarthritis, right shoulder Category: Medical (2) Right shoulder pain: Code(s): M25.511 - Pain in right shoulder Category: Medical Plan Ms. Tijerina presents with right shoulder pain and weakness due to chronic rotator cuff tear arthropathy. I had a lengthy discussion with the patient regarding the treatment options. She wishes to hold off on total shoulder replacement surgery if at all possible. I agree with this plan. The risks and benefits of a right shoulder cortisone injection were discussed at length with the patient. The patient wished to proceed. She tolerated the injection well. She will continue with her home stretching program. She will contact me prior to her follow-up appointment in 3 months should any questions or concerns arise. Feel free to call me at any time should questions regarding her orthopedic management arise. I spent 22 minutes in reviewing the patient's records and imaging studies, seeing the patient and documenting in the medical record. Orders: Orders XR shoulder RT min 2V Today M25.511 - Pain in right shoulder AMB Joint Injection/Aspiration Today M19.011 - Primary osteoarthritis, right shoulder Medications: Refilled tramadol 50 mg PO Q8H PRN 60 tabs 0RF pain Coding Level of Care Code Est Pt Level 3 (99144) Complex EM visit Add On G2211 Diagnoses Arthritis of right shoulder region M19.011 Right shoulder pain M25.511 CPT Codes Coding - 69615 Large joint: 43519 - Large joint ([id number])
== END 2024-08-24 10:21 | disposition home or self-care (01) ==
PROVIDERS: PCP Internal Medicine; Visit Provider Orthopaedic Surgery
DX: M19.011 Primary osteoarthritis, right shoulder (principal)
CPT/HCPCS: 20610; 99213

== ENCOUNTER 2024-08-24 14:19 | Outpatient (REF) | payer MEDICARE, SELFPAY ==
--- NOTE | ~2024-08-24 | XR_ITS ---
EXAMINATION: XR SHOULDER, RIGHT CLINICAL INFORMATION: Pain in the right shoulder COMPARISON: None available. TECHNIQUE: 2 views of the right shoulder. FINDINGS: There is superior subluxation of the humeral head nearly abutting the undersurface acromion indicative of rotator cuff tear superiorly. There is osteoarthritis of glenohumeral joint with marginal osteophytes noted. Overall at least mild to moderate arthrosis. There is osteoarthritis of the acromioclavicular joint at least mild to moderate Additional findings: Postsurgical changes noted in lower cervical spine with plate and screw fixation noted. Additional multilevel degenerative disc changes noted. Incidental note made of calcification of the dorsal aorta XR/XR shoulder RT min 2V IMPRESSION: 1. Findings compatible with rotator cuff tear. 2. Osteoarthritis of the glenohumeral and acromioclavicular joints. 3. Postsurgical changes in the cervical spine. Electronically signed by: Marck Barrera MD 08/30/2024 11:38 AM EDT
== END 2024-08-24 14:20 | disposition home or self-care (01) ==
LOC: HO.HOSX 14:19
PROVIDERS: Visit Provider Orthopaedic Surgery
DX: M25.511 Pain in right shoulder (principal); M19.011 Primary osteoarthritis, right shoulder
CPT/HCPCS: 20610; 73030; 99212; J1010; J2003

== ENCOUNTER 2024-12-27 07:46 | Outpatient (AMB) | payer MEDICARE, SELFPAY ==
--- NOTE | 2024-12-27 07:48 | MHC.OFFVIS ---
Vital Signs 12/27/24 07:49 Height 5 ft 6 in Weight 196 lb 15 oz BMI 31.8 Intake Visit Reasons: Right shoulder pain, Left knee pain Intake Note: Antonietta is a 74 year old right hand dominant female who presents with complaints of progressively worsening right shoulder pain as well as left knee pain. She describes her pains as sharp in nature. She has done physical therapy exercises which aggravated her pains. She has also tried Tylenol and anti-inflammatory medicines which gave her minimal relief. She has had cortisone injections in the past which gave her temporary relief. The patient has difficulty walking even short distances because of her left knee pain. At this point her left knee pain is interfering with her activities of daily living and her ability to sleep well through the night. The patient did undergo right total knee replacement surgery last year. She was minimal discomfort in her right knee. Allergies Penicillins Allergy (Intermediate, Verified 12/27/24 07:53) Hives meperidine [From Demerol] Allergy (Mild, Verified 12/27/24 07:53) Hives diclofenac [From Voltaren] Allergy (Unknown, Verified 12/27/24 07:53) Unknown epinephrine Adverse Reaction (Intermediate, Verified 12/27/24 07:53) tachycardia Medication List - Last Reconciled 12/27/24 by Herbert Rodriguez MD acetaminophen 650 mg (2 x 325 mg) PO Q6H PRN 30 days aspirin 325 mg PO BID 42 days atenolol 25 mg PO BEDTIME cholecalciferol (vitamin D3) 50 mcg PO DAILY@1700 cimetidine 300 mg PO BID clindamycin HCl 600 mg (2 x 300 mg) PO ONCE cyclobenzaprine 5 mg PO Q12H PRN docusate sodium 100 mg PO BID 30 days ferrous sulfate 325 mg PO Q OTHER DAY gabapentin 200 mg PO BEDTIME gabapentin 100 mg PO BID@0900,1200 ibuprofen 800 mg PO Q8H PRN magnesium hydroxide 311 mg PO BEDTIME tramadol 50 mg PO Q8H PRN walker Folding front wheeled walker [facility] Medical History Arthritis Murmur HTN (hypertension) Pericardial effusion SVT (supraventricular tachycardia) Osteopenia Osteoarthritis Migraine IBS (irritable bowel syndrome) Hiatal hernia GERD (gastroesophageal reflux disease) Diverticulosis Ascending aorta dilation Aortic valve disease Anemia Surgical History History of esophagogastroduodenoscopy (EGD) H/O colonoscopy History of cervical discectomy Hx of section Hx of tonsillectomy Hx of cholecystectomy Social History Household Members: Spouse Housing: House Are you a primary career development facilitator to a significant other at home: No Do you presently have visiting nurse or other home services: No Patient Tobacco Use Status: Former Tobacco user service: No Current occupational status: retired 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 Physical Exam Vital Signs: BMI result Body Mass Index 31.8 Const Other: Well-nourished well-developed very friendly female awake alert and oriented x3 in no acute distress Extrem Other: Right shoulder examination shows decreased range of motion when compared to her left shoulder, 3/5 strength with supraspinatus testing, no instability Left knee examination shows a minimal effusion, palpable crepitus with range of motion, pain with range of motion, range of motion from -3 degrees to 110 degrees, no instability Office Procedures AMB Joint Injection/Aspiration Joint Injection/Aspiration Primary Site: right shoulder Prep: site was prepped using aseptic technique Injected: 40 mg of, DepoMedrol and 1% plain lidocaine Procedure: The patient tolerated the procedure well Coding 89644 - Large joint Procedure code (CPT) selection complete Results Reviewed Results Reviewed: X-rays of the patient's left knee taken previously show end-stage degenerative joint disease with grade 4 [id number] arthritis, subchondral sclerosis, osteophyte formation, no acute bony abnormalities Assessment & Plan Assessment & Plan (1) Arthritis of right shoulder region: Code(s): M19.011 - Primary osteoarthritis, right shoulder Category: Medical (2) Right shoulder pain: Code(s): M25.511 - Pain in right shoulder Category: Medical (3) Left knee pain: Code(s): M25.562 - Pain in left knee Plan Mrs. Tijerina presents with progressively worsening left knee pain due to end-stage degenerative joint disease. I had a lengthy discussion with the patient regarding the treatment options. At this point she has failed continued non operative treatments. The risks and benefits of left total knee replacement surgery were discussed at length with the patient. The patient wishes to proceed with surgery. She will be scheduled for next available date. I will see her back 1 week prior to her surgery to answer any final questions that she might have. The patient also has right shoulder pain and weakness due to chronic rotator cuff tearing as well as early rotator cuff tear arthropathy. The risks and benefits of a right shoulder cortisone injection were discussed at length with the patient. The patient wished to proceed. She tolerated the injection well. She will follow-up as instructed. Feel free to call me at any time should questions regarding her orthopedic management arise. I spent 21 minutes in reviewing the patient's records and imaging studies, seeing the patient and documenting in the medical record. Orders: Orders AMB Joint Injection/Aspiration Today M19.011 - Primary osteoarthritis, right shoulder Medications: New ibuprofen 800 mg PO Q8H PRN 90 tabs 3RF pain Coding Level of Care Code Est Pt Level 3 (65305) Complex EM visit Add On G2211 Diagnoses Arthritis of right shoulder region M19.011 Right shoulder pain M25.511 Left knee pain M25.562 CPT Codes Coding - 68340 Large joint: 35663 - Large joint ([id number])
[2024-12-27 07:49] VITALS: BMI 31.8
== END 2024-12-27 08:22 | disposition home or self-care (01) ==
PROVIDERS: PCP Internal Medicine; Visit Provider Orthopaedic Surgery
DX: M19.011 Primary osteoarthritis, right shoulder (principal); M25.562 Pain in left knee
CPT/HCPCS: 20610; 99213

== ENCOUNTER → 2024-12-27 07:46 | Outpatient (BNVA) | payer MEDICARE, SELFPAY | PROVIDERS: PCP Internal Medicine; Visit Provider Orthopaedic Surgery | DX: M19.011 Primary osteoarthritis, right shoulder (principal); M25.511 Pain in right shoulder; M25.562 Pain in left knee | CPT/HCPCS: 20610; 99212; J1010; J2003 ==

== ENCOUNTER 2025-04-26 09:14 | Outpatient (AMB) | payer MEDICARE, SELFPAY ==
[2025-04-26 09:21] VITALS: BMI 31.6
--- NOTE | 2025-04-26 09:21 | A.OFFVIS_ITS ---
Vital Signs 04/26/25 09:21 Height 5 ft 6 in Weight 196 lb BMI 31.6 Intake Visit Reasons: Left knee pain and giving way Intake Note: Antonietta is a 75 year old female who presents with complaints of progressively worsening left knee pain. She did undergo right total knee replacement surgery in January of 2024. She denies any discomfort in her right knee. She states her left knee pain as sharp and severe in nature. Her pain has gotten worse over the last few years in spite of continued non operative treatments. The patient has difficulty walking even short distances because of her left knee pain. At this point her left knee pain is interfering with her activities of daily living and her ability to sleep well through the night. The patient states that her left knee will give out several times per day. She has tried Tylenol and anti- inflammatory medicines which gave her minimal relief. She has had injections in the past which gave her no relief. At this point her left knee pain is interfering with her activities of daily living and her ability to sleep well through the night. Allergies Penicillins Allergy (Intermediate, Verified 04/26/25 09:23) Hives meperidine [From Demerol] Allergy (Mild, Verified 04/26/25 09:23) Hives diclofenac [From Voltaren] Allergy (Unknown, Verified 04/26/25 09:23) Unknown epinephrine Adverse Reaction (Intermediate, Verified 04/26/25 09:23) tachycardia Medication List - Last Reconciled 04/26/25 by Herbert Rodriguez MD acetaminophen 650 mg (2 x 325 mg) PO Q6H PRN 30 days aspirin 325 mg PO BID 42 days atenolol 25 mg PO BEDTIME cholecalciferol (vitamin D3) 50 mcg PO DAILY@1700 cyclobenzaprine 5 mg PO Q12H PRN docusate sodium 100 mg PO BID 30 days famotidine 40 mg PO BID ferrous sulfate 325 mg PO Q OTHER DAY gabapentin 200 mg PO BEDTIME ibuprofen 800 mg PO Q8H PRN magnesium hydroxide 311 mg PO BEDTIME walker Folding front wheeled walker walker Folding front wheeled walker [facility] Medical History Arthritis Murmur HTN (hypertension) Pericardial effusion SVT (supraventricular tachycardia) Osteopenia Osteoarthritis Migraine IBS (irritable bowel syndrome) Hiatal hernia GERD (gastroesophageal reflux disease) Diverticulosis Ascending aorta dilation Aortic valve disease Anemia Surgical History History of esophagogastroduodenoscopy (EGD) H/O colonoscopy History of cervical discectomy Hx of section Hx of tonsillectomy Hx of cholecystectomy Social History Household Members: Spouse Housing: House Are you a primary child care giver to a significant other at home: No Do you presently have visiting nurse or other home services: No Patient Tobacco Use Status: Former Tobacco user service: No Current occupational status: retired 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 Physical Exam Vital Signs: BMI result Body Mass Index 31.6 Const Other: Well-nourished well-developed very friendly female awake alert and oriented x3 in no acute distress Extrem Other: Bilateral lower extremity examination shows good capillary refill, no skin lesions noted, normal sensation light touch Left knee examination shows a minimal effusion, palpable crepitus with range of motion, pain with range of motion, range of motion from -3 degrees to 115 degrees, no instability Results Reviewed Results Reviewed: X-rays of the patient's left knee show end-stage degenerative joint disease with grade 4 [id number] arthritis, subchondral sclerosis, osteophyte formation, no acute bony abnormalities Assessment & Plan Assessment & Plan (1) Arthritis of left knee: Code(s): M17.12 - Unilateral primary osteoarthritis, left knee Category: Medical Plan Ms. Tijerina presents with progressively worsening left knee pain due to end- stage degenerative joint disease. I had a lengthy discussion with the patient regarding the treatment options. At this point she has failed continued non operative treatments. The risks and benefits of left total knee replacement surgery were discussed at length with the patient. The patient wishes to proceed with surgery. She will be scheduled for next available date. I will see her back 1 week prior to her surgery to answer any final questions that she might have. Because of her symptoms of instability she was fitted with a knee brace today. I do find that the knee brace is a medical necessity to help prevent future falls. Feel free to call me at any time should questions regar ding her orthopedic management arise. I spent 22 minutes in reviewing the patient's records and imaging studies, seeing the patient and documenting in the medical record. Coding Level of Care Code Est Pt Level 3 (83369) Complex EM visit Add On G2211 Diagnoses Arthritis of left knee M17.12
--- OUTSIDE RECORDS SUMMARY | 2025-04-26 09:56 | XMS_ITS | Clinical Summary ---
Author Organization [facility] Address [address] [place] [address] Care Team Providers Care Gum Worker Name Role Phone Carlito Gill MD Primary Care Provider Allergies Active Allergy Reactions Criticality Noted Date Comments Acetaminophen 04/15/2021 Meperidine 06/21/2017 Diclofenac 02/18/2022 Nsaids 02/18/2022 Oxycodone 04/15/2021 Penicillins 06/21/2017 Medications Medication Sig Dispensed Refills Start Date End Date Status atenolol (TENORMIN) tablet 25 mg TAKE 1 TABLET BY MOUTH EVERY DAY 2 06/01/2017 Active cimetidine (TAGAMET) 300 MG tablet TAKE 1 TABLET BY MOUTH TWICE A DAY 3 05/08/2017 Active ergocalciferol (VITAMIN D2) capsule 26284 units TAKE ONE CAPSULE BY MOUTH ONE TIME PER WEEK 1 05/13/2019 Active ondansetron (ZOFRAN) 4 MG tablet TAKE 1 TABLET BY MOUTH EVERY EIGHT HOURS NEEDED 0 03/07/2020 Active ferrous sulfate 325 (65 FE) MG tablet Take 1 tablet by mouth 3 (three) times a day. 0 07/12/2020 Active aspirin 81 MG EC tablet Take 1 tablet by mouth daily. 0 Active terconazole (TERAZOL 7) 0.4 % vaginal cream APPLY 1 APPLICATORFUL EXTERNALLY TO AFFECTED AREA ONCE DAILY AT BEDTIME FOR 7 DAYS 0 12/23/2021 Active oseltamivir (TAMIFLU) 75 MG capsule TAKE 1 CAPSULE BY MOUTH TWICE A DAY FOR 5 DAYS 0 01/30/2022 Active fluconazole (DIFLUCAN) 150 MG tablet TAKE 1 TABLET BY MOUTH ONCE FOR 1 DAY 0 12/23/2021 Active clotrimazole-beta methasone (LOTRISONE) cream PLEASE SEE ATTACHED FOR DETAILED DIRECTIONS 0 01/08/2022 Active ammonium lactate (AMLACTIN) 12 % cream APPLY AM AND PM DRY SKIN ON BODY THROUGHOUT 0 12/30/2021 Active ibuprofen 800 MG tablet TAKE 1 TABLET BY MOUTH EVERY 8 HOURS NEEDED FOR PAIN 270 tablet 3 09/01/2022 Active D3 Super Strength 50 MCG (2000 UT) CAPS Take 1 capsule by mouth daily. with food 0 08/30/2022 Active doxycycline (VIBRAMYCIN) 100 MG capsule TAKE 1 CAPSULE BY MOUTH TWICE A DAY FOR 7 DAYS 0 08/29/2022 Active Active Problems Problem Noted Date Diagnosed Date Labral tear of long head of biceps tendon, left, initial encounter 08/22/2019 Nontraumatic incomplete tear of left rotator cuf f 08/22/2019 Arthritis of knee, right 04/14/2019 Arthritis of knee, left 04/14/2019 Family History Medical History Relation Name Comments Cancer Father Heart disease Father Arthritis Mother Relation Name Status Comments Father Mother Social History Tobacco Use Types Packs/Day Years Used Date Smoking Tobacco: Never Assessed Sex and Gender Information Value Date Recorded Sex Assigned at Not on file Gender Identity Not on file Sexual Orientation Not on file Job Start Date Occupation Industry Not on file Not on file Not on file Last Filed Vital Signs Vital Sign Reading Time Taken Comments Blood Pressure - - Pulse - - Temperature - - Respiratory Rate - - Oxygen Saturation - - Inhaled Oxygen Concentration - - Weight 92.1 kg (203 lb) 02/18/2022 11:48 AM EDT Height 170.2 cm (5' 7 ) 02/18/2022 11:48 AM EDT Body Mass Index 31.79 02/18/2022 11:48 AM EDT Plan of Treatment Health Maintenance Due Date Last Done Comments Hepatitis C Screening 1950 Depression Screening 1963 BMI Counseling 1969 Preventative Health Evaluation 1969 DTap / Tdap / Td (1 - Tdap) 1970 Colon Cancer Screening (Colonoscopy) 1996 Breast Cancer Screening (Mammogram) 2001 Shingrix-Zoster Vaccine (1 o f 2) 2001 Fall Risk Assessment 2016 Osteoporosis Screening (DEXA Scan) 2016 COVID-19 Vaccine (2023-2 5 season) 2024 03/17/2021, 02/23/2021 Influenza Vaccine (Season Ended) 2025 10/15/2021, 09/13/2020 RSV Adult > 60+ Yrs or (1 - 1-dose 75+ series) 2026 Pneumococcal Vaccine Completed 07/24/2022, 01/30/2020 Hepatitis B Vaccines Aged Out No long er eligible based on patient's age to complete this topic RSV Ped < 20 months Aged Out No longe r eligible based on patient's age to complete this topic Care Teams Gum Worker Relationship Specialty Start Date End Date Carlito Gill MD PCP - General Internal Medicine 06/11/17
== END 2025-04-26 09:55 | disposition home or self-care (01) ==
LOC: HO.HOS 09:14
PROVIDERS: PCP Internal Medicine; Visit Provider Orthopaedic Surgery
DX: M17.12 Unilateral primary osteoarthritis, left knee (principal)
CPT/HCPCS: 99214; G2211

== ENCOUNTER → 2025-04-26 09:14 | Outpatient (BNVA) | payer MEDICARE, SELFPAY | PROVIDERS: PCP Internal Medicine; Visit Provider Orthopaedic Surgery | DX: M17.12 Unilateral primary osteoarthritis, left knee (principal) | CPT/HCPCS: 99212 ==

== ENCOUNTER → 2025-05-29 10:49 | Outpatient (BNVA) | payer MEDICARE, SELFPAY | PROVIDERS: PCP Internal Medicine | DX: Z01.818 Encounter for other preprocedural examination (principal) ==

== ENCOUNTER 2025-06-04 | Outpatient (REF) | payer MEDICARE, SELFPAY ==
--- OUTSIDE RECORDS SUMMARY | 2025-05-04 11:44 | XMS_ITS | Clinical Summary ---
Author Organization [facility] Address [address] [place] [address] Care Team Providers Care Manufacturers Service Representative Name Role Phone Carlito Gill MD Primary [...] 3 05/08/2017 Active ergocalciferol (VITAMIN D2) capsule 55335 units TAKE ONE CAPSULE BY MOUTH ONE [...] age to complete this topic Care Teams Manufacturers Service Representative Relationship Specialty Start Date End Date Carlito Gill MD PCP - General Internal Medicine 06/11/17
[2025-06-04 10:09] VITALS: BP 122/68; PULSE 67; RESP 16; O2SAT 97; BMI 33.2
--- NOTE | 2025-06-04 10:43 | HO.ANESPROP2 ---
HPI - Anesthesia Eval Consult details Narrative: 75 yr old female for left total knee replacement s/p right TKR 2023 with [facility], woke up during procedure. PONV with GA. Cellulitis R wrist requiring IV antibxs February 2025 at [facility]. No CP/SOB with ADLs, swims in pool every day in summer. Cardiac clearance scheduled 06/19/25. Medical clearance with labs 04/2025 at [facility] pre op clinic. STOP BANG score: 4-5 PMFSH Active Problems Active Problems: All Active Problems Arthritis of right shoulder region (Acute) Right shoulder pain (Acute) Arthritis of left knee (Acute) Status post total right knee replacement (Acute ~02/07/24) Arthritis of right knee (Acute) Right knee pain (Acute) Past Medical History Medical History (Updated 06/04/25 @ 11:02 by Marce Roper RN) History of cellulitis (~03/13/25) Constipation Arthritis Murmur HTN (hypertension) Pericardial effusion SVT (supraventricular tachycardia) Osteopenia Osteoarthritis Migraine IBS (irritable bowel syndrome) Hiatal hernia GERD (gastroesophageal reflux disease) Diverticulosis Ascending aorta dilation Aortic valve disease Anemia Family History Family history of problems with anesthesia: No Surgical History Surgical History (Updated 06/04/25 @ 10:02 by Marce Roper RN) History of total right knee replacement (TKR) (02/07/24) History of esophagogastroduodenoscopy (EGD) H/O colonoscopy History of cervical discectomy (05/26/23) Hx of section Hx of tonsillectomy Hx of cholecystectomy History of Problems with Anesthesia: No Social History Social History (Updated 06/04/25 @ 10:29 by Marce Roper RN) Household Members: Family Housing: House Are you a primary livestock caretaker to a significant other at home: No Do you presently have visiting nurse or other home services: No 75 years or older and lives alone: No Comment: wears brace on left knee Patient Tobacco Use Status: Former Tobacco user Tobacco use type: Cigarette Use of substances other than those prescribed or required for medical reasons: No Patient : No service: No Current occupational status: retired 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 Meds Allergies Allergy/AdvReac Type Severity Reaction Status Date / Time Penicillins Allergy Intermediate Hives Verified 06/04/25 10:04 meperidine (From Demerol) Allergy Mild Hives Verified 06/04/25 10:04 epinephrine AdvReac Intermediate tachycardia Verified 06/04/25 10:04 Home Medications ?Medication ?Instructions ?Recorded ?Confirmed ?Last Taken ?Type atenolol 25 mg tablet 25 mg PO BEDTIME 05/26/23 06/04/25 Unknown History cholecalciferol (vitamin D3) 50 50 mcg PO DAILY@1900 05/26/23 06/04/25 Unknown History mcg (2,000 unit) tablet ferrous sulfate 325 mg (65 mg 325 mg PO Q OTHER DAY 05/26/23 06/04/25 Unknown History iron) tablet gabapentin 100 mg capsule 200 mg PO BEDTIME 01/27/24 06/04/25 Unknown History magnesium hydroxide 311 mg 311 mg PO BEDTIME 01/27/24 06/04/25 Unknown History chewable tablet famotidine 40 mg tablet 40 mg PO BID 04/26/25 06/04/25 Unknown History aspirin 81 mg tablet,delayed 81 mg PO DAILY 06/04/25 06/04/25 Unknown History release cyanocobalamin (vitamin B-12) 1,000 mcg PO DAILY 06/04/25 06/04/25 Unknown History 1,000 mcg tablet (Vitamin B-12) docusate sodium 100 mg capsule 100 mg PO BID PRN Constipation 06/04/25 06/04/25 Unknown History tramadol 50 mg tablet 50 mg PO Q8H PRN Pain 06/04/25 06/04/25 Unknown History Exam Height,Weight and Vital Signs: Height 5 ft 5 in Weight 90.6 kg Last Vital Signs Pulse 67 06/04/25 10:09 Resp 16 06/04/25 10:09 BP 122/68 06/04/25 10:09 Pulse Ox 97 06/04/25 10:09 O2 Del Method Room Air 06/04/25 10:09 Pertinent Lab Results Pertinent Lab Results: 04/2025 at [facility] H/H 11.8/38.8; platelets 355 INR 1.1, PT 11.2 CMP: Sodium 139, K+ 4.3, glucose 103, BUN 23, creat 1.09 A1C: 5.6% Narrative Narrative: ECHO 04/18/25 LV normal, moderate hypertrophy EF 65-70%, no regional LV wall motion abnormalities. Aortic valve with moderate stenosis Severe annular calcification, trace regurg, no stenosis Ascending aorta dilated 4.2 cm EKG 04/2025 NSR, nonspecific ST abnormality, rate 71 No significant change compared to prior 01/2024 Airway Mallampati Class: II TM Dist: >3cm Neck ROM: Full Partial: Upper Loose/Missing/Broken Teeth: No Heart: RRR Lungs: CTAB Assessment and Plan Final Anesthetic Review Family History of Problems with Anesthesia: No History of Problems with Anesthesia: No
[2025-06-04 12:39] LABS: MRSA Nasal PCR NEGATIVE (Negative); SA Nasal PCR NEGATIVE (Negative)
--- OUTSIDE RECORDS SUMMARY | 2025-06-26 11:45 | XMS_ITS ---
Author Organization [facility] Address [address] [place] [address] Care Team Providers Care Associate Professor Of Anthropology Name Role Phone Carlito Gill MD Primary Care Provider Samuel Gilmore Unavailable [phone] Encounters Encounter Location Date Provider Diagnosis [address] [address] 06/26/2025 Samuel Lopes Plan Of Treatment Next Appt Details Provider Name:Samuel Lopes , 08/28/2025 10:00:00 AM, [address] [place] [address], [phone], Progress Notes * Antonietta CASEYDOB:[birth year] (75 yo F)Acc No.[id number]:06/26/2025 Progress Note Patient: Antonietta CUELLAR Provider: Wesley Lopes DPM :1950 A ge:75 Y S ex:Female Date:06/26/2025 Address:[address] [place] [address] [facility] [place], [place]-[phone] Pcp:Carlito Gill MD Subjective: * Chief Complaints: [...] 06/26/2025 Generated for Cinthya vitale/Shahla/Lashon on: 0 07/18/2025 12:41 PM EDT
--- OUTSIDE RECORDS SUMMARY | 2025-07-18 12:41 | XMS_ITS | Clinical Summary ---
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 Active cyclobenzaprine (FLEXERIL) 5 mg tablet Take 1 tablet (5 mg total) by mouth 2 (two) times a day if needed for muscle spasms. Active ferrous sulfate 325 mg (65 mg elemental iron) tablet Take 1 tablet (325 mg total) by mouth every other day. Active gabapentin (NEURONTIN) 100 mg capsule Take 1 capsule (100 mg total) by mouth 3 (three) times a day. Active magnesium hydroxide (MILK OF MAGNESIA ORAL) Take 1 Dose by mouth. 81 mg Active cholecalciferol (VITAMIN D-3) 50 mcg (2,000 unit) capsule Take 1 capsule (2,000 Units total) by mouth at bedtime. Active ibuprofen (ADVIL,MOTRIN) 800 mg tablet Take 1 tablet (800 mg total) by mouth every 8 (eight) hours if needed. 09/01/2022 Active famotidine (PEPCID) 40 mg tablet Take 1 tablet (40 mg total) by mouth 2 (two) times a day. 180 tablet 1 06/21/2025 Active traMADoL (ULTRAM) 50 mg tablet Take 1 tablet (50 mg total) by mouth every 6 (six) hours if needed. Max Daily Amount: 200 mg 05/08/2025 Active Active Problems Problem Noted Date Diagnosed Date Moderate left ventricular hypertrophy 06/19/2025 Assessment & Plan (06/19/2025 10:58 AM EDT): Moderate LV hypertrophy with an IVSD at 1.4 cm seen on most recent echocardiogram. Pending PYP study scheduled in September to rule out cardiac amyloidosis. Osteoarthritis of right wrist 06/14/2025 Cellulitis of right wrist 03/12/2025 Adhesive capsulitis of right shoulder 07/21/2024 Overview (11/16/2024): Last Assessment & Plan: Patient is over a year s/p C4-5 ACDF done on 06/14/2023. She states after her fall March 2023, she has had so many issues from the fall, is also s/p right knee replacement with Dr. Rodriguez. She states since the fall she has noticed that she has had decreased range of motion in the right shoulder, cannot reach overhead. When she fell she landed with outstretched arms on her hands, which also flared up her carpal tunnel syndrome. She does not recall ever getting any x-rays of the shoulder after the fall. Ms. Tijerina has done well s/p C4-5 ACDF, her 1 year follow-up x-rays look good, were reviewed by Dr. Palma. Dr. Palma called patient with results: AP/lateral and flexion/extension x-rays showed a solid arthrodesis and she has no restrictions on her activity. We can check right shoulder x-rays to see if she has an old fracture or arthritis limiting her range of motion. We talked about trying physical therapy to help with increasing strength and range of motion. I can refer her to orthopedics, however she did mention she has an upcoming appointment with Dr. Rodriguez, she still has issues with the left knee he is following. She thinks he also does shoulder surgery and injections, will mention it to him next week, but if needed call me for referral to orthopedics. All questions answered. Bilateral carpal tunnel syndrome 07/21/2024 Overview (11/16/2024): Last Assessment & Plan: Patient states her carpal tunnel symptoms have also been bothering her a lot despite trying the wrist splints, mostly with the right hand, subjective weakness and numbness. She had EMG NCS study 05/11/[address] Christopher that shows mild left CTS and moderate right CTS. She states when she talk to Dr. Palma on the phone about the postop x-rays, she mention she could do her carpal tunnel release on the right. Patient states she is going away on vacation mid-August, would want to do surgery after that. She is slightly hesitant only because she just had 2 big surgeries this past year for her neck and knee, and might need left knee replacement in the near future. She will call with update if she would like to go ahead with surgery, all questions answered. We did discuss the surgery and postop expectations/ restrictions, but can go over it in more detail if she decides to go ahead with surgery. Anemia 09/07/2023 Aortic valve disease 09/07/2023 GERD (gastroesophageal reflux disease) Assessment & Plan (02/08/2025 12:17 PM EDT): Stable. Insurance no longer covering Tagament. Change to famotidine. Orders: famotidine (Pepcid) 40 mg tablet; Take 1 tablet (40 mg total) by mouth 2 (two) times a day. ondansetron (ZOFRAN) 4 mg tablet; Take 1 tablet (4 mg total) by mouth every 12 (twelve) hours if needed for nausea or vomiting. Granuloma annulare 09/07/2023 Hiatal hernia 09/07/2023 IBS (irritable bowel syndrome) 09/07/2023 Migraine 09/07/2023 Osteoarthrosis 09/07/2023 Osteopenia 09/07/2023 Diverticulosis 09/07/2023 Severe obesity (BMI 35.0-39. 9) with comorbidity ([facility] V24, [facility] V28) 09/07/2023 Spondylolisthesis of lumbar region 09/07/2023 Overview (11/16/2024): Last Assessment & Plan: Ms. Tijerina describes 4 to 6 weeks of numbness and tingling in the toes of her right foot. She says that she has a long known history of L4 and L5 nerve root compression and was wondering about getting a steroid injection in her back. I reviewed her lumbar spine MRI from May 29, 2023. This revealed L3-4 and L4-5 anterolisthesis which in conjunction with ligamentum flavum hypertrophy and facet arthropathy did result in right greater than left foraminal stenosis at L3-4 and L4-5 with significant right sided lateral recess stenosis at L4-5 compressing the right L5 nerve root. I explained to the patient that she is almost 3 months out from surgery and ideally she should wait 6 months from the time of surgery before having any anti-inflammatories or steroid injections. She said that this was a discomfort that she could live with and she thought that she should wait. If she continues to suffer with right lower extremity symptoms she would be a candidate for right L4-5 epidural steroid injection sometime in the future but preferably not until the end of November. The case was discussed with Dr. Palma. Varicose veins with pain 09/07/2023 Vitamin D deficiency 09/07/2023 SOB (shortness of breath) 08/25/2023 Overview (11/16/2024): Last Assessment & Plan: She is going to have a major surgery, right knee replacement and currently has limited functional capacity due to knee pain. The mild shortness of breath and mild shortness of breath sometimes and could be caused by diastolic dysfunction and moderate valve abnormality. I will arrange a stress test prior to the surgery to make sure there is no major perfusion abnormalities. Cervical myelopathy ([facility] V24, [facility] V28) 0 06/04/2023 Overview (11/16/2024): Last Assessment & Plan: Ms. Tijerina is here for her second postop visit since a C4-5 ACDF with plating on 06/14/2023. She does not have the same degree of radiating pain down the arm but will gets occasional discomfort down the upper arm. She does have some right trapezius spasm at night for which she is using IcyHot with some relief. She is wearing a right wrist splint for carpal tunnel diagnosed on EMG at [facility]. On exam, there is no step-off or deformity the cervical spine, she is nontender to palpation. There is a well-healed right anterior cervical incision. Cervical rotation is about 60 degrees bilaterally, strength is 5/5 including right APB, gait is steady. Review of the AP/lateral and flexion/extension x-rays from today shows the graft plate and screws to all be in good position without instability. The anterolisthesis at this level is stable but there is great contact between the graft and endplates so I anticipate she will progress to a solid fusion. I asked that she wait another month before trying right wrist cortisone injection but she can go ahead and schedule the surgery for her hiatal hernia for September or later. If her right CTS symptoms persist despite steroid injection, she can follow-up with us for a right CTR. otherwise, we will plan on seeing her back at 1 year from surgery with final x-rays to assess the fusion. Aortic valve sclerosis 06/03/2023 Overview (11/16/2024): Aortic valve sclerosis Disorder of pericardium 06/03/2023 Overview (11/16/2024): Disorder of pericardium Elevated cholesterol/high density lipoprotein ra neal 06/03/2023 Overview (11/16/2024): Elevated cholesterol/high density lipoprotein ratio Hypotension 06/03/2023 Overview (11/16/2024): Low blood pressure Paroxysmal tachycardia (CMS/HCC V24, CMS/HCC V28 ) 06/03/2023 Overview (11/16/2024): Paroxysmal tachycardia Pericardial effusion 06/03/2023 Overview (11/16/2024): Pericardial effusion, Norovirus 2016 Ascending aorta dilation ([facility] V24) Overview (11/16/2024): Last Assessment & Plan: Ascending aorta is only mildly dilated. Continue monitoring. Assessment & Plan (06/19/2025 10:53 AM EDT): Ascending aorta measured 4.2 cm on updated echocardiogram in April and is stable. Will continue to monitor with future echocardiograms. Assessment & Plan (04/17/2025 11:27 AM EDT): Ascending aorta measured 4.2 cm on echo in September 2022. Echocardiogram has been ordered to assess for change. Atrial tachycardia ([facility] V24) 02/18/2021 Overview (11/16/2024): 2003 in the setting of illness and pericardial effusion Last Assessment & Plan: Clinical recurrence of her tachycardia on current dose beta-royal. Continue current treatment plan Essential hypertension 02/18/2021 Overview (11/16/2024): Last Assessment & Plan: Well-controlled Assessment & Plan (06/19/2025 10:53 AM EDT): Blood pressure is well-controlled in the office today 116/60. Continue atenolol as prescribed. Assessment & Plan (04/17/2025 11:25 AM EDT): Blood pressure is well-controlled in the office today at 102/60. Continue atenolol as prescribed. Nonrheumatic aortic valve stenosis 02/18/2021 Overview (11/16/2024): Echo from October 2019 revealing LVEF 65 to 70%, mild LVH, no wall motion abnormalities, diffuse thickening of the aortic valve cusps with reduced excursion with mild aortic stenosis with mean gradient of 32.9/18 mmHg, MAC, with dilated ascending aorta 4.1, which is all unchanged from April 2018. Last Assessment & Plan: We will continue to monitor. Aortic stenosis is in the mild to moderate range. we will repeat echocardiogram prior to next office visit. Assessment & Plan (06/19/2025 10:58 AM EDT): Aortic stenosis remains in the moderate range with a peak velocity of 3.6 m/s and a gradient of 29 mmHg on updated echocardiogram in April. She is asymptomatic. Will continue to monitor with future echocardiograms. Warning signs of progressive aortic stenosis: chest pain, shortness of breath, palpitations, dizziness, passing out or coming close to passing out. Assessment & Plan (04/17/2025 11:26 AM EDT): Echocardiogram from September 2022 showed mild to moderate aortic stenosis with mild insufficiency and a mean gradient of 22 mmHg. Symptoms of shortness of breath, lightheadedness, especially in the setting of dehydration and mild lower extremity edema may be a symptom of worsening aortic stenosis. Patient encouraged to stay well-hydrated. I will update an echocardiogram to reassess cardiac function and structures. I discussed with the patient the warning signs of progressive aortic stenosis: chest pain, shortness of breath, palpitations, dizziness, passing out or coming close to passing out. She will contact us if symptoms continue to worsen. Labral tear of long head of biceps tendon, left, initial encounter 08/22/2019 Nontraumatic incomplete tear of left rotator cuf f 08/22/2019 Arthritis of knee, left 04/14/2019 Arthritis of knee, right 04/14/2019 Encounters Date Type Department Care Team Description 06/19/2025 9:40 AM EDT Consult [facility] [address] [place] [phone] Ela Flowers NP Ascending aorta dilation (CMS/HCC V24) (Primary Dx); Nonrheumatic aortic valve stenosis; Essential hypertension; Preop cardiovascular exam; Moderate left ventricular hypertrophy 06/04/2025 Telephone [facility]iology [address] [place] [phone] Any Hicks MD 04/23/2025 Telephone Gastroenterology - [address] [place] [address] Cat Herr PA 04/20/2025 Telephone [facility] [address] [facility] [address] [place] [address] Ela Flowers NP 04/18/2025 7:00 AM EDT Ancillary Procedure [facility] [address] [place] [address] Nonrheumatic aortic valve stenosis 04/17/2025 10:40 AM EDT Office Visit [facility] [address] [place] [address] Ela Flowers NP Nonrheumatic aortic valve stenosis (Primary Dx); Essential hypertension; Ascending aorta dilation (CMS/HCC V24) from Last 3 Months Immunizations Name Administration Dates Next Due Influenza trivalent, with pr eservative (Fluzone; Afluria) 6mo and older 08/20/2023,10/14/2022,10/15/2021,09/13 Pneumococcal conjugate 20 va lent (Prevnar 20, PCV 20) 2mo and older 07/24/2022 Pneumococcal polysaccharide 23 valent (Pneumovax 23) 2yo and older 01/30/2020 Tdap Tetanus diptheria acell ular pertussis (Boostrix; Adacel) 7yo and older 12/17/2013 Surgical History Surgery Date Site/Laterality Comments NECK SURGERY 06/14/2023 PROCEDURE: HISTORICAL NECK SURGERY; COMMENT: C4-5 acdf TOTAL KNEE ARTHROPLASTY 02/07/2024 Right PROCEDURE: HISTORICAL TOTAL KNEE REPLACE; COMMENT: Dr. rodriguez COLONOSCOPY 09/15/2019 - 10/14/2019 Internal hemorrhoids, sigmoid diverticulosis ESOPHAGOGASTRODUODENOSCOPY 08/15/2020 - 09/14/2020 Large hiatal hernia, small erosions in cardia and duodenal bulb. Reactive gastropathy and mild chronic gastritis without H. pylori on biopsy. Unremarkable duodenal biopsy CHOLECYSTECTOMY CERVICAL FUSION SECTION, CLASSIC x3 Medical History Medical History Date Comments Hiatal hernia 09/07/2023 DX:Hiatal hernia Pericardial effusion 06/03/2023 DX:Pericard ial effusion; COMMENT: Pericardial effusion, Norovirus 2016 Paroxysmal tachycardia (CMS/ HCC V24, CMS/HCC V28) 06/03/2023 DX:Paroxysmal tachycardia (H CC); COMMENT: Paroxysmal tachycardia Nonrheumatic aortic valve stenosis 02/18/2021 DX:Nonrheumatic aortic valve stenosis; COMMENT: Echo from October 2019 revealing LVEF 65 to 70%, mild LVH, no wall motion abnormalities, diffuse thickening of the aortic valve cusps with reduced excursion with mild aortic stenosis with mean gradient of 32.9/18 mmHg, MAC, with dilated ascending aorta 4.1, which is all unchanged from April 2018. Ascending aorta dilation (CMS/HCC V24) 1 DX:Ascending aorta dilation (HCC) Diverticulosis 09/07/2023 DX:Diverticulosi s GERD (gastroesophageal reflux disease) 3 DX:GERD (gastroesophageal reflux disease) IBS (irritable bowel syndrome) 09/07/2023 D X:IBS (irritable bowel syndrome) Osteopenia 09/07/2023 DX:Osteopenia Family History Medical History Relation Name Comments Colon cancer Father Lung cancer Father Relation Name Status Comments Father Social History Tobacco Use Types Packs/Day Years Used Date Smoking Tobacco: Former Smokeless Tobacco: Never Alcohol Use Standard Drinks/Week Comments No 0 (1 standard drink = 0.6 oz pur e alcohol) Interpersonal Safety Answer Date Record ed Physical Abuse 03/12/2025 Verbal Abuse 03/12/2025 Comments Unknown Sex and Gender Information Value Date Recorded Sex Assigned at Not on file Legal Sex Female 6:15 PM EST Gender Identity Not on file Sexual Orientation Not on file Obstetrics History Last Filed Vital Signs Vital Sign Reading Time Taken Comments Blood Pressure 116/60 06/19/2025 9:49 AM EDT Pulse 59 06/19/2025 9:49 AM EDT Temperature 36.9 C (98.4 F) 03/13/2025 7:00 AM EDT Respiratory Rate 18 03/13/2025 7:00 AM EDT Oxygen Saturation 98% 06/19/2025 9:49 AM EDT Inhaled Oxygen Concentration - - Weight 90.7 kg (200 lb) 06/19/2025 9:49 AM EDT Height 165.1 cm (5' 5 ) 06/19/2025 9:49 AM EDT Body Mass Index 33.28 06/19/2025 9:49 AM EDT Plan of Treatment Upcoming Encounters Date Type Department Care Team (Late st Contact Info) Description 08/15/2025 1:00 PM EDT Office Visit Gastroenterology - [address] [place] [phone] Cat Herr PA [facility] [place] [address] 10/01/2025 11:00 AM EST Ancillary Procedure [facility] [address] [place] [phone] 10/31/2025 9:10 AM EST Office Visit [facility] [address] [place] [phone] Ela Flowers, DAVID [address] [place] [address] [address] [place] [phone] Health Maintenance Due Date Last Done Comments Zoster Vaccines (1 of 2) 2001 RSV Immunization Adult Patients (1 - Risk 60-74 years 1-dose series) 2011 Cholesterol Screening (Lipid Panel) 10/22/2022 Hepatitis C Screening 10/22/2022 Medicare Annual Wellness Visit 10/22/2022 Social Influencers of Health Screening 10/22/2022 DTaP,Tdap,and Td Vaccines (2 - Td or Tdap) 12/17/2023 12/17/2013 COVID-19 Vaccine (3 - season) 2024 03/17/2021, 02/23/2021 Depression Screening 11/15/2024 Influenza Vaccine (#1) 2025 , 08/22/2024, 08/20/2023, Additional history exists Falls Risk Assessment 03/13/2026 03/13/2025 Hypertension/CHF/CAD Annual BMP Blood Test 03/13/2026 03/13/2025, 03/12/2025 Breast Cancer Screening 05/10/2026 05/10/20 24, 01/14/2023, 01/01/2022, Additional history exists Osteoporosis Screening (Bone Density Screening) 01/02/2032 01/02/2022 Colorectal Cancer Screening: Colonoscopy 02/15/2035 02/15/2025 Pneumococcal Vaccine: 50+ Years Completed 07/24/2022, 01/30/2020 HIB Vaccines Aged Out No longer eligi ble based on patient's age to complete this topic HPV Vaccines Aged Out No longer eligi ble based on patient's age to complete this topic Hepatitis A Vaccines Aged Out No long er eligible based on patient's age to complete this topic Hepatitis B Vaccines Aged Out No long er eligible based on patient's age to complete this topic IPV Vaccines Aged Out No longer eligi ble based on patient's age to complete this topic MMR Vaccines Aged Out No longer eligi ble based on patient's age to complete this topic Meningococcal ACWY Vaccine Aged Out N o longer eligible based on patient's age to complete this topic Meningococcal B Vaccine Aged Out No l onger eligible based on patient's age to complete this topic RSV Immunization Patients Under 20 months Aged Out No longer eligible based on patient's age to complete this topic Varicella Vaccines Aged Out No longer eligible based on patient's age to complete this topic Procedures Procedure Name Priority Date/Time Associated Diagnosis Comments ECG 12-LEAD Routine 06/19/2025 11:08 AM EDT Nonrheumatic aortic valve stenosis TRANSTHORACIC ECHOCARDIOGRAM (TTE) COMPLETE Routine 04/18/2025 7:43 AM EDT Nonrheumatic aortic valve stenosis ECG 12-LEAD Routine 04/17/2025 11:27 AM EDT Nonrheumatic aortic valve stenosis BASIC METABOLIC PANEL Routine 03/13/2025 6:12 AM EDT EXTERNAL COLONOSCOPY REPORT Routine 02/15/2025 10:51 AM EDT BRANDON SCREENING DIGITAL Routine 05/10/2024 4:08 PM EDT Encounter for screening mammogram for malignant neoplasm of breast BRANDON DEXA AXIAL SKELETON Routine 01/02/2022 4:14 PM EST Encounter for screening for osteoporosis from Last 3 Months or Most Recently Relevant to Health Maintenance Results * ECG 12 lead (06/19/2025 11:08 AM EDT) Only the most recent of2 resultswithin the time period is included. Ventricular Rate ECG 59 BPM GEMUSE Atrial Rate 59 BPM GEMUSE P-R Interval 162 ms GEMUSE QRS Duration 102 ms GEMUSE Q-T Interval 428 ms GEMUSE QTc 423 ms GEMUSE P Wave [place] 53 degrees GEMUSE R [place] -14 degrees GEMUSE T [place] 41 degrees GEMUSE ECG Interpretation Sinus bradycardia Otherwise normal ECG When compared with ECG of 17-APR-2025 10:39, No significant change was found Confirmed by Shiv CANDELARIO JOHN ([id number]) on 06/21/2025 4:34:34 PM GEMUSE 06/19/2025 9:53 AM EDT 06/21/2025 4:34 PM EDT Ela Flowers NP ECG ORDERABLES Edited Result - Final GEMUSE * (ABNORMAL) TRANSTHORACIC ECHOCARDIOGRAM (TTE) COMPLETE (04/18/2025 7:43 AM EDT) Left Atrium Minor [place] 6.0 cm CV PACS Left Atrium Major [place] 6.3 cm CV PACS LA Area Sys (A2C) 29 cm2 CV PACS LA Area Sys (A4C) 28 cm2 CV PACS LA Volume (BP) 110 mL CV PACS RA Area 20.7 cm2 CV PACS RA 2D Volume 64 mL CV PACS AV Regurgitation PHT 675 ms CV PACS AR Max Velocity 4.0 m/s CV PACS AV Peak Srinivasan 3.6 m/s CV PACS AV Peak Gradient 52 mmHg CV PACS AV Mean Gradient 29 mmHg CV PACS Ao VTI 75.5 cm CV PACS AV Area Continuity Equation 1.3 cm2 CV PACS AV Area Peak Velocity 1.3 cm2 CV PACS Aortic Sinus Valsalva 3.4 cm CV PACS Ascending Aorta 4.2 cm CV PACS IVC Proximal 1.5 cm CV PACS IVSD 1.4(A) 0.6 - 0.9 cm CV PACS LVIDD 4.0 3.8 - 5.2 cm CV PACS LVIDS 2.2 2.2 - 3.5 cm CV PACS LVOT Diameter 2.1 cm CV PACS LVOT Mean Grad 4 mmHg CV PACS LVOT Peak VTI 29.1 cm CV PACS LVOT Mean Srinivasan 0.9 m/s CV PACS LVOT Peak Srinivasan 1.3 m/s CV PACS LVOT Peak Gradient 7 mmHg CV PACS LVPWD 1.3(A) 0.6 - 0.9 cm CV PACS MV E' Tissue Velocity Lateral 5 cm/s CV PACS MV E' Tissue Velocity Septal 7 cm/s CV PACS LVOT Area 3.5 cm2 CV PACS LVOT Stroke Volume 101 mL CV PACS MV Deceleration [place] 3.1 m/s2 CV PACS E Wave Deceleration Time 278(A) 119 - 242 ms CV PACS MV PHT 112 ms CV PACS MV Peak A Srinivasan 1.43 m/s CV PACS MV Peak E Srinivasan 0.84 m/s CV PACS MV Mean Gradient 3 mmHg CV PACS MV VTI 49.3 cm CV PACS Mitral Valve Max Velocity 1.6 m/s CV PACS MV Peak Gradient 10 mmHg CV PACS MV Area PHT 2.0 cm2 CV PACS MV Area Continuity Equation 2.0 cm2 CV PACS PV Acceleration Time 130 ms CV PACS RV Diastolic Basal Dimension 3.9 2.5 - 4.1 cm CV PACS RV S' 14 cm/s CV PACS TAPSE 24 mm CV PACS TR Peak Velocity 2.80 m/s CV PACS TR Peak Gradient 31 mmHg CV PACS E/E' Ratio Septal 12 CV PACS E/E' Ratio Averaged 14 CV PACS LVOT Stroke Index 51 mL/m2 CV PACS Relative Wall Thickness ratio 0.65 CV PACS LVOT:AV VTI Index 0.39 CV PACS FS 45 % CV PACS LV Mass 2D 198 g CV PACS Ascending Aorta Index 2.12 cm/m2 CV PACS MV VTI:LVOT VTI ratio 1.7 CV PACS LVOT flow 312 mL/s CV PACS RA 2D Volume Index 32 mL/m2 CV PACS NIMA Index (VTI) 0.67 cm2/m2 CV PACS NIMA Index (Pk Srinivasan) 0.66 cm2/m2 CV PACS LVIDD Index 2.02 cm/m2 CV PACS LVIDS Index 1.11 cm/m2 CV PACS AV Velocity Ratio 0.36 CV PACS E/A Ratio 0.6 CV PACS E/E' Ratio Lateral 17 CV PACS LA Volume Index (BP) 56 mL/m2 CV PACS LV Mass Index 2D 100 g/m2 CV PACS BSA 2.04 m2 CV PACS Right Ventricular Peak Systolic Pressure 34 mmHg CV PACS Est. RA Pressure 3 mmHg CV PACS GLS -18.7 % CV PACS Anatomical Region Laterality Modality Ultrasound Narrative 04/18/2025 10:10 AM EDT Left ventricle cavity size is normal. There is moderate hypertrophy. Systolic function is normal with an ejection fraction of 65-70%. There are no regional LV wall motion abnormalities. Unable to assess diastolic function due to mitral valve disorder. Global longitudinal strain is normal at -18.7%. Right ventricle cavity is normal. Right ventricular systolic function is normal. Left atrium volume index is severely increased. Aortic valve demonstrates moderate stenosis. Mild aortic valve regurgitation. There is severe annular calcification. There is trace regurgitation. There is no evidence of mitral valve stenosis. The right ventricular systolic pressure is normal. The RVSP is estimated at 34 mmHg. The ascending aorta is dilated (4.2 cm). Compared to previous study of 09/16/2022, aortic valve stenosis has progressed to moderate range. Left Ventricle Left ventricle cavity size is normal. There is moderate hypertrophy. Systolic function is normal with an ejection fraction of 65-70%. LV global longitudal strain is normal. Global longitudinal strain is normal at -18.7%. There are no regional LV wall motion abnormalities. Unable to assess diastolic function due to mitral valve disorder. Right Ventricle Right ventricle cavity appears normal. Systolic function is normal. Left Atrium Left atrium volume index is severely increased. Right Atrium Right atrium cavity is dilated. IVC/SVC RA pressures is estimated to be 3 mmHg (IVC diameter <21 mm and decreases >50% during inspiration). Mitral Valve The leaflets are moderately thickened. There is severe annular calcification. There is trace regurgitation. There is no evidence of mitral valve stenosis. Tricuspid Valve The leaflets exhibit normal excursion. There is mild regurgitation. There is no evidence of tricuspid valve stenosis. The right ventricular systolic pressure is normal. The RVSP is estimated at 34 mmHg. Aortic Valve The leaflets are moderately thickened and exhibit moderately reduced excursion. There is mild regurgitation. There is moderate stenosis. The aortic valve peak velocity is 3.6 m/s. The mean gradient is 29 mmHg. Pulmonic Valve Visualized portions of the pulmonic valve appear normal. There is trace pulmonic valve regurgitation. There is no evidence of pulmonic valve stenosis. Ascending Aorta The Sinus of Valsalva is (3.4 cm). The ascending aorta is (4.2 cm). Pericardium Pericardium appears normal. Study Details Overall the study quality was adequate. us Ela Flowers NP CV ECHO PROCEDURES Final Result * Basic metabolic panel (03/13/2025 6:12 AM EDT) Sodium 138 133 - 145 mmol/L LAB CHEMISTRY METHOD 03/13/2025 7:37 AM [facility] Potassium 3.9 3.5 - 5.5 mmol/L LAB CHEMISTRY METHOD 03/13/2025 7:37 AM [facility] Chloride 108 96 - 110 mmol/L LAB CHEMISTRY METHOD 03/13/2025 7:37 AM [facility] CO2 25 21 - 32 mmol/L LAB CHEMISTRY METHOD 03/13/2025 7:37 AM [facility] Anion Gap 5 3 - 11 LAB CHEMISTRY METHOD 03/13/2025 7:37 AM [facility] Glucose 92 70 - 100 mg/dL LAB CHEMISTRY METHOD 03/13/2025 7:37 AM [facility] BUN 18 5 - 25 mg/dL LAB CHEMISTRY METHOD 03/13/2025 7:37 AM [facility] Creatinine 0.80 0.50 - 1.10 mg/dL LAB CHEMISTRY METHOD 03/13/2025 7:37 AM [facility] eGFR 78 >=60 mL/min/1. 73m2 LAB CHEMISTRY METHOD 03/13/2025 7:37 AM [facility] Comment:Calculation based on the Chronic Kidney Disease Epidemiology Collaboration (CKD-EPI) equation refit without adjustment for race. BUN/Creatinine Ratio 22.5 LAB CHEMISTRY METHOD 03/13/2025 7:37 AM EDT [facility] Calcium 8.9 8.5 - 10.5 mg/dL LAB CHEMISTRY METHOD 03/13/2025 7:37 AM EDT [facility] Blood Venous blood specimen / Unknown Venipuncture / Unknown 03/13/2025 6:12 AM EDT 03/13/2025 6:46 AM EDT Doug Ramirez MD LAB BLOOD ORDERABLES Final Result [facility] [address] [place] [address], [place] [phone] * External Colonoscopy Report (02/15/2025 10:51 AM EDT) Anatomical Region Laterality Modality Endoscopy Historical Provider GI~PROCEDURE ORDERABLES F inal Result * BRANDON SCREENING DIGITAL (05/10/2024 4:08 PM EDT) Anatomical Region Laterality Modality Mammography 05/10/2024 10:5 1 AM EDT Narrative 05/10/2024 4:08 PM EDT [facility] Diagnostic Imaging Department [address] [place] [address] Patient: RHETT TIJERINA Tala /Age/Sex: 1950 - 74 - F Unit#: [id number] Location/Status: SPDIMAM/REG CLI Mnemonic/Ordering Site: DIGSC/SPMAM Ordering Physician: ANY HICKS MD [facility] Screening Digital - 05/10/24 - 1131 Report Status:Signed EXAM: [facility] Screening Digital EXAM DATE AND TIME: 05/10/2024 11:31 AM HISTORY: Screening. Patient states 20 pound weight loss. COMPARISON: 01/14/23, 01/01/22, 11/23/20 TECHNIQUE: Bilateral digital breast tomosynthesis was performed in the CC and MLO projections. Computer aided detection with Good Thing 3D 3.1 was employed. TISSUE DENSITY: a. The breasts are almost entirely fatty. FINDINGS: No suspicious masses, grouped microcalcifications, or areas of architectural distortion are seen. Benign rim calcifications are again seen. The skin and vascularity are unremarkable. IMPRESSION: Stable mammographic appearance of the breasts. No evidence of malignancy is seen. A negative mammogram in the presence of a clinically suspicious palpable abnormality does not preclude the possibility of malignancy or alter the indications for biopsy. BI-RADS: Category 2: Benign RECOMMENDATION(S): 1: Routine screening mammogram BILATERAL in 1 year. Dictating Physician: LUCI KRUEGER MD Electronically Signed by: LUCI KRUEGER MD Dic Date/Time: 05/10/248 Sign date/Time: 05/10/241607 Procedure Note Luci Krueger MD - 08/30/2024 [facility] Diagnostic Imaging Department [address] [place] [address] Patient: RHETT TIJERINAO.B./Age/Sex: 1950 - 74 - F Unit#: [id number] Location/Status: SPDIMAM/REG CLI Mnemonic/Ordering Site: [facility] Ordering Physician: ANY HICKS MD [facility] Screening Digital - 05/10/24 - 1131 Report Status:Signed EXAM: [facility] Screening Digital EXAM DATE AND TIME: 05/10/2024 11:31 AM HISTORY: Screening. Patient states 20 pound weight loss. COMPARISON: 01/14/23, 01/01/22, 11/23/20 TECHNIQUE: Bilateral digital breast tomosynthesis was performed in the CCand MLO projections. Computer aided detection with Good Thing 3D 3.1was employed. TISSUE DENSITY: a. The breasts are almost entirely fatty. FINDINGS: No suspicious masses, grouped microcalcifications, or areas ofarchitectural distortion are seen. Benign rim calcifications are again seen. The skinand vascularity are unremarkable. IMPRESSION: Stable mammographic appearance of the breasts. No evidence of malignancyis seen. A negative mammogram in the presence of a clinically suspicious palpable abnormality does not preclude the possibility of malignancy or alter the indications for biopsy. BI-RADS: Category 2: Benign RECOMMENDATION(S): 1: Routine screening mammogram BILATERAL in 1 year. Dictating Physician: LUCI KRUEGER MD Electronically Signed by: LUCI KRUEGER MD Dic Date/Time: 05/10/24 1608 Sign date/Time: 05/10/24 1608 us Any Hicks MD IMG BI PROCEDURES Final Res ult * BRANDON DEXA AXIAL SKELETON (01/02/2022 4:14 PM EST) Anatomical Region Laterality Modality Mammography 01/01/2022 10:3 2 AM EST Narrative 01/02/2022 4:14 PM EST [facility] Diagnostic Imaging Department [address] [place] [address] Patient: RHETT TIJERINA S /Age/Sex: 1950 - 71 - F Unit#: [id number] Location/Status: SPDIMAM/REG CLI Mnemonic/Ordering Site: MAMDEXAAX/SPMAM Ordering Physician: CADEN LANDA MD Brandon Dexa Axial Skeleton - 01/01/22 - 1099 History: Metabolic bone disease. Post menopausal estrogen deficiency. COMPARISON: 10/19/2016, 09/11/2013 and 03/27/2010. Findings: Bone densitometry is performed utilizing dual energy x-ray absorptiometry (DEXA) in the Project Bionic unit. The lumbar spine and proximal femora are evaluated in the AP projection. The FRAX questionnaire was completed. The results indicate normal bone mineral density, within expected range for patient's age, modestly decreased from baseline examination. Mean bone mineral density based on femoral neck density is 0.966, T score -0.3, normal range. Z score 0.5. Calculated 10 year probability of fracture based upon right femoral neck density 7.6% major osteoporotic fracture and 0.7% and hip fracture. The detailed DEXA report will be mailed to the referring physician's office. IMPRESSION: Mild decrease in bone mineral density since previous DEXA evaluation 10/19/2016, but density remains within normal range. [id number] Dictating Physician: ENRICO BOND MD Electronically Signed by: ENRICO BOND MD Dic Date/Time: 01/02/22 1610 Sign date/Time: 01/02/22 1614 Procedure Note Enrico Bond MD - 11/04/2022 [facility] Diagnostic Imaging Department [address] [place] [address], [place] [address] Patient: RHETT TIJERINA S /Age/Sex: 1950 - 71 - F Unit#: [id number] Location/Status: SPDIMAM/REG CLI Mnemonic/Ordering Site: MAMDEXAAX/SPMAM Ordering Physician: CADEN LANDA MD Brandon Dexa Axial Skeleton - 01/01/22 - 1099 History: Metabolic bone disease. Post menopausal estrogen deficiency. COMPARISON: 10/19/2016, 09/11/2013 and 03/27/2010. Findings: Bone densitometry is performed utilizing dual energy x-rayabsorptiometry (DEXA) in the Project Bionic unit. The lumbar spine and proximal femoraare evaluated in the AP projection. The FRAX questionnaire was completed. The results indicate normal bone mineral density, within expected rangefor patient's age, modestly decreased from baseline examination. Mean bonemineral density based on femoral neck density is 0.966, T score -0.3, normalrange. Z score 0.5. Calculated 10 year probability of fracture based upon rightfemoral neck density 7.6% major osteoporotic fracture and 0.7% and hip fracture. The detailed DEXA report will be mailed to the referring physician'soffice. IMPRESSION: Mild decrease in bone mineral density since previous DEXA evaluation 10/19/2016, but density remains within normal range. [id number] Dictating Physician: ENRICO BOND MD Electronically Signed by: ENRICO BOND MD Dic Date/Time: 01/02/22 1610 Sign date/Time: 01/02/22 1614 Caden Landa MD IMG BI PROCEDURES Final Resu lt from Last 3 Months or Most Recently Relevant to Health Maintenance Insurance [employer] Advance Directives * Full Code - Default (Latest Code Status on File) Date Activated Date Inactivated Comments 03/12/2025 7:25 PM 03/13/2025 5:50 PM This is orde r is used when code status has not been discussed with the patient, or code status is otherwise unknown/unconfirmed To update the patient's code status, place a code status order. Do not modify or discontinue any currently active code status orders. Care Teams Motorcycle Builder Relationship Specialty Start Date End Date Any Hicks MD [address] [place], [place] PCP - General Internal Medicine 09/10/09
--- OUTSIDE RECORDS SUMMARY | 2025-07-18 12:41 | XMS_ITS | Clinical Summary ---
Author Organization [facility] Address [address] [place] [address] Care Team Providers Care Movie Projectionist Name Role Phone Carlito Gill MD Primary Care Provider [phone] Allergies Active Allergy Reactions Criticality Noted Date [...] 3 05/08/2017 Active ergocalciferol (VITAMIN D2) capsule 00091 units TAKE ONE CAPSULE BY MOUTH ONE [...] 5 season) 2024 03/17/2021, 02/23/2021 Influenza Vaccine (#1) 2025 , 09/13/2020 RSV Adult > 60+ Yrs or (1 - 1-dose 75+ series) 2026 Pneumococcal Vaccine Completed 07/24/2022, 01/30/2020 Hepatitis B Vaccines Aged Out No long er eligible based on patient's age to complete this topic RSV Ped < 20 months Aged Out No longe r eligible based on patient's age to complete this topic Care Teams Movie Projectionist Relationship Specialty Start Date End Date Carlito Gill MD PCP - General Internal Medicine 06/11/17
== END 2025-06-04 00:01 | disposition home or self-care (01) ==
LOC: HO.PAT
PROVIDERS: Physician Assistant; PCP Internal Medicine; Visit Provider Orthopaedic Surgery
DX: Z01.818 Encounter for other preprocedural examination (principal)
CPT/HCPCS: 87640; 87641

== ENCOUNTER → 2025-08-24 09:26 | Outpatient (BNVA) | payer MEDICARE, SELFPAY | PROVIDERS: PCP Internal Medicine | DX: Z01.818 Encounter for other preprocedural examination (principal) ==

== ENCOUNTER 2025-09-20 08:43 | Outpatient (REF) | payer MEDICARE, SELFPAY ==
--- NOTE | ~2025-09-20 | XR_ITS ---
Exam: X-ray, bilateral knees.XR KNEE 3 VIEWS BILATERAL TECHNIQUE: Three views lower extremity joint, bilateral knees INDICATION: Bilateral knee pain COMPARISON: Right knee x-rays July 27, 2024 FINDINGS: RIGHT KNEE: Again noted are changes related to total knee arthroplasty. The joint remains anatomically aligned. No abnormal lucencies are seen at bone hardware interfaces. There is no joint effusion. There is an osteophyte or heterotopic bone projecting posteriorly from the superior pole of patella, new since the prior. LEFT KNEE: There is severe narrowing of the medial joint space and mild narrowing of the lateral joint space. There is subchondral sclerosis and degenerative cystic change in the medial compartment. There are tricompartmental marginal osteophytes, largest in the patellofemoral joint. There is a quadriceps tendon enthesophyte on patella. No joint effusion is evident. XR/XR Knee Tien 3V IMPRESSION: Right knee: Total knee arthroplasty. Heterotopic bone or osteophyte projecting deep from the superior pole patella. Left knee: Severe osteoarthritis. Electronically signed by: Ronald Spann MD 09/20/2025 02:36 PM JUAN
== END 2025-09-20 08:44 | disposition home or self-care (01) ==
LOC: HO.HOSX 08:43
PROVIDERS: Visit Provider Orthopaedic Surgery
DX: Z01.818 Encounter for other preprocedural examination (principal); M17.12 Unilateral primary osteoarthritis, left knee; M25.561 Pain in right knee; Z79.899 Other long term (current) drug therapy; Z79.82 Long term (current) use of aspirin; Z96.651 Presence of right artificial knee joint
CPT/HCPCS: 73562; 99212

== ENCOUNTER 2025-09-20 14:02 | Outpatient (AMB) | payer MEDICARE, SELFPAY ==
--- OUTSIDE RECORDS SUMMARY | 2024-09-18 09:15 | XMS_ITS ---
Author Organization [facility] Address [address] [place] [address] Care Team Providers Care Automotive Software Engineer Name Role Phone Carlito Gill MD Primary Care Provider Samuel Gilmore Unavailable [phone] Shira He [phone] Encounters Encounter Location Date Provider Diagnosis [address] [address] 09/18/2024 Shira He Plan Of Treatment Next Appt Details Provider Name:Samuel Lopes , 01/08/2026 11:00:00 AM, [address] [place] [address], [phone], Progress Notes * Antonietta CASEYDOB:[birth year] (75 yo F)Acc No.[id number]:09/18/2024 Progress Note Patient: Antonietta CUELLAR Provider: Esteban He DPM :1950 A ge:74 Y S ex:Female Date:09/18/2024 Address:[address] [place] [address] [facility] [id number] Pcp:Carlito Gill MD Subjective: * Chief Complaints: [...] Date: 11/18/2023 Generated for Cinthya Mart/Lashon on: 11/20/2024 05:13 PM EST
--- OUTSIDE RECORDS SUMMARY | 2024-09-21 06:30 | XMS_ITS ---
Author Organization [facility] Address [address] [place] [address] Care Team Providers Care Military Exchange Wireless Manager Name Role Phone Jairo SALMERON, Carlito Primary Care Provider Samuel Gilmore Unavailable [phone] Shira He [phone] Arguello Encounters Encounter Location Date Provider Diagnosis [address] [address] 09/21/2024 Shira He Plan Of Treatment Next Appt Details Provider Name:Samuel Lopes , 01/08/2026 11:00:00 AM, [address] [place], [address], Progress Notes * Antonietta CASEYDOB:[birth year] (75 yo F)Acc No.[id number]:09/21/2024 Progress Note Patient: Antonietta CUELLAR Provider: Esteban He DPM :1950 A ge:74 Y S ex:Female Date:09/21/2024 Address:[address] [place] [address] [facility] [place], [id number] Pcp:Carlito Gill MD Subjective: * Chief Complaints: [...] Date: 11/21/2023 Generated for Cinthya Virk on: 11/20/2024 05:13 PM EST
--- OUTSIDE RECORDS SUMMARY | 2025-06-26 10:45 | XMS_ITS ---
Author Organization [facility] Address [address] [place] [address] Care Team Providers Care Spa Assistant Manager Name Role Phone Carlito Gill MD Primary Care Provider Samuel Gilmore Unavailable [phone] Encounters Encounter Location Date Provider Diagnosis [address] [address] 06/26/2025 Samuel Lopes Plan Of Treatment Next Appt Details Provider Name:Samuel Lopes , 01/08/2026 11:00:00 AM, [address] [place] [address], [phone], Progress Notes * Antonietta CASEYDOB:[birth year] (75 yo F)Acc No.[id number]:06/26/2025 Progress Note Patient: Antonietta CUELLAR Provider: Wesley Lopes DPM :1950 A ge:75 Y S ex:Female Date:06/26/2025 Address:[address] [place] [address] [facility] [place], [id number] Pcp:Carlito Gill MD Subjective: * Chief Complaints: [...] DPM Date: 0 06/26/2025 Generated for Cinthya vitlae/Marky on: 1 11/20/2024 05:13 PM EST
--- OUTSIDE RECORDS SUMMARY | 2025-08-24 07:45 | XMS_ITS ---
Author Organization [facility] Address [address] [place] [phone] Care Team Providers Care Section Weaver Name Role Phone Carlito Gill MD Primary Care Provider Samuel Gilmore Unavailable [phone] Encounters Encounter Location Date Provider Diagnosis [address] [address] 08/24/2025 Samuel Lopes Plan Of Treatment Next Appt Details Provider Name:Samuel Lopes , 01/08/2026 11:00:00 AM, [address] [place] [address], [phone], Progress Notes * Antonietta CASEYDOB:[birth year] (75 yo F)Acc No.[id number]:08/24/2025 Progress Note Patient: Antonietta CUELLAR Provider: Wesley Lopes DPM :1950 A ge:75 Y S ex:Female Date:08/24/2025 Address:[address] [place] [address] [facility] [place] [phone] Pcp:Carlito Gill MD Subjective: * Chief Complaints: [...] Lopes DPM Date: 1 Generated for Cinthya vitale/Marky on: 11/20/2024 05:14 PM EST
--- NOTE | 2025-09-20 14:25 | A.OFFVIS_ITS ---
Intake Visit Reasons: Left knee pain Intake Note: Antonietta is a 75 year old female who presents with complaints of progressively worsening left knee pain. She did undergo right total knee replacement surgery in January of 2024. She denies any discomfort in her right knee. She states her left knee pain as sharp and severe in nature. Her pain has gotten worse over the last few years in spite of continued non operative treatments. The patient has difficulty walking even short distances because of her left knee pain. At this point her left knee pain is interfering with her activities of daily living and her ability to sleep well through the night. The patient states that her left knee will give out several times per day. She has tried Tylenol and anti- inflammatory medicines which gave her minimal relief. She has had injections in the past which gave her no relief. At this point her left knee pain is interfering with her activities of daily living and her ability to sleep well through the night. Allergies Penicillins Allergy (Intermediate, Verified 09/20/25 14:28) Hives meperidine (From Demerol) Allergy (Mild, Verified 09/20/25 14:28) Hives epinephrine Adverse Reaction (Intermediate, Verified 09/20/25 14:28) tachycardia Medication List - Last Reconciled 09/20/25 by Herbert Rodriguez MD acetaminophen 650 mg (2 x 325 mg) PO Q6H PRN 30 days aspirin 81 mg PO DAILY atenolol 25 mg PO BEDTIME cholecalciferol (vitamin D3) 50 mcg PO DAILY@1900 cyanocobalamin (vitamin B-12) (Vitamin B-12) 1,000 mcg PO DAILY cyclobenzaprine 5 mg PO Q12H PRN docusate sodium 100 mg PO BID PRN ferrous sulfate 325 mg PO Q OTHER DAY gabapentin 100 mg PO BID ibuprofen 800 mg PO Q8H PRN magnesium hydroxide 311 mg PO BEDTIME tramadol 50 mg PO Q12H PRN walker Folding front wheeled walker walker Folding front wheeled walker [facility] Medical History PONV (postoperative nausea and vomiting) PAT (paroxysmal atrial tachycardia) Aortic stenosis History of cellulitis (~03/13/25) Constipation Arthritis Murmur HTN (hypertension) Pericardial effusion SVT (supraventricular tachycardia) Osteopenia Osteoarthritis Migraine IBS (irritable bowel syndrome) Hiatal hernia GERD (gastroesophageal reflux disease) Diverticulosis Ascending aorta dilation Aortic valve disease Anemia Surgical History History of total right knee replacement (TKR) (02/07/24) History of esophagogastroduodenoscopy (EGD) H/O colonoscopy History of cervical discectomy (05/26/23) Hx of section Hx of tonsillectomy Hx of cholecystectomy Social History Household Members: Spouse Housing: House Are you a primary senior care manager to a significant other at home: No Do you presently have visiting nurse or other home services: No 75 years or older and lives alone: No Comment: wears brace on left knee Patient Tobacco Use Status: Former Tobacco user Tobacco use type: Cigarette e-Cigarette/Vaping Use: Never Used service: No Current occupational status: retired 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 Physical Exam Extrem Other: Left knee examination shows a minimal effusion, palpable crepitus with range of motion, pain with range of motion, range of motion from -3 degrees to 110 degrees, no instability Results Reviewed Results Reviewed: X-rays of the patient's right knee taken today show a total knee arthroplasty in good position with no signs of loosening, no acute bony abnormalities X-rays of the patient's left knee taken today show end-stage degenerative joint disease with grade 4 xlde-eg-cagd arthritis, subchondral sclerosis, osteophyte formation, no acute bony abnormalities Assessment & Plan Assessment & Plan (1) Left knee pain: Code(s): M25.562 - Pain in left knee (2) Arthritis of left knee: Code(s): M17.12 - Unilateral primary osteoarthritis, left knee Category: Medical Plan Mrs. Tijerina presents with progressively worsening left knee pain due to end-stage degenerative joint disease. I had a lengthy discussion with the patient regarding the treatment options. At this point she has failed continued non operative treatments. The risks and benefits of left total knee replacement surgery were discussed at length with the patient. The patient wishes to proceed with surgery. social services counselor will be consulted following her surgery for home physical therapy and nursing. The patient will follow-up as instructed. Feel free to call me at any time should questions regarding her orthopedic management arise. I spent 21 minutes in reviewing the patient's records and imaging studies, seeing the patient and documenting in the medical record. Orders: Orders Basic Metabolic Panel Today Z01.818 - Encounter for other preprocedural examination Type and Screen Today Z01.818 - Encounter for other preprocedural examination XR Knee Tien 3V Today M25.561 - Pain in right knee, M25.562 - Pain in left knee Complete Blood Count Auto Diff Today Z01.818 - Encounter for other preprocedural examination Hemoglobin A1c Today Z01.818 - Encounter for other preprocedural examination Coding Level of Care Code Est Pt Level 3 (86953) Complex EM visit Add On G2211 Diagnoses Left knee pain M25.562 Arthritis of left knee M17.12
--- OUTSIDE RECORDS SUMMARY | 2025-09-20 17:14 | XMS_ITS | Clinical Summary ---
Author Organization [facility] Address [address] [place] [address] Care Team Providers Care Quality Intern Name Role Phone Carlito Gill MD Primary Care Provider [phone] Allergies Active Allergy Reactions Criticality Noted Date [...] 3 05/08/2017 Active ergocalciferol (VITAMIN D2) capsule 29586 units TAKE ONE CAPSULE BY MOUTH ONE [...] age to complete this topic Care Teams Quality Intern Relationship Specialty Start Date End Date Carlito Gill MD PCP - General Internal Medicine 06/11/17
--- OUTSIDE RECORDS SUMMARY | 2025-09-20 17:14 | XMS_ITS | Clinical Summary ---
Author Organization [facility] [address] [facility] Address [address] [place] [address] Phone Care Team Providers Care See Supervisor Name Role Phone Any Hicks MD Primary Care Provider Allergies Active Allergy Reactions Criticality Noted Date Comments Cardioplegic Soln 06/04/2023 Microplegia Msa-msg [Plegisol] Other Reaction(s): OTHER Unknown Patient record w/[facility] Meperidine Hcl Nausea And Vomiting 11/16/2024 Penicillins 11/16/2024 Other Reaction(s): Rash/Dermatitis Medications atenoloL (TENORMIN) 25 mg tablet TAKE 1 TABLET BY MOUTH EVERY DAY 90 tablet 3 4 Active aspirin (ASPIR-81 ORAL) Take 81 mg [...] mouth every 8 (eight) hours if needed. 2 Active famotidine (PEPCID) 40 mg tablet Take 1 tablet (40 mg total) by mouth 2 (two) times a day. 180 tablet 1 5 Active traMADoL (ULTRAM) 50 mg tablet Take 1 tablet (50 mg total) by mouth every 6 (six) hours if needed. Max Daily Amount: 200 mg 5 Active ammonium lactate (AMLACTIN) 12 % cream Apply topically 1 (one) time each day. 5 Active mupirocin (BACTROBAN) 2 % ointment Apply topically. 5 Active nystatin (MYCOSTATIN) cream Apply topically. 5 Active Active Problems Problem Noted Date Diagnosed [...] GERD (gastroesophageal reflux disease) Assessment & Plan (08/15/2025 5:14 PM EDT): Stable continue famotidine 40 mg twice a day Assessment & Plan (02/08/2025 12:17 PM EDT): [...] Severe obesity (BMI 35.0-39. 9) with comorbidity (CMS/HCC V24, CMS/HCC V28) 09/07/2023 Spondylolisthesis of lumbar region 09/07/2023 [...] is no major perfusion abnormalities. Cervical myelopathy (CMS/HCC V24, CMS/HCC V28) 0 06/04/2023 Overview (11/16/2024): Last Assessment [...] for carpal tunnel diagnosed on EMG at [facility]. On exam, there is [...] Overview (11/16/2024): Low blood pressure Paroxysmal tachycardia ([facility] V24, CMS/HCC V28 ) 06/03/2023 Overview (11/16/2024): Paroxysmal tachycardia Pericardial effusion 06/03/2023 Overview (11/16/2024): Pericardial effusion, Norovirus 2016 Ascending aorta dilation ([facility] V24) Overview (11/16/2024): Last Assessment & Plan: [...] ordered to assess for change. Atrial tachycardia ([facility] V24) 02/18/2021 Overview (11/16/2024): 2003 in the [...] Encounters Date Type Department Care Team Description 09/10/2025 Telephone [facility] - [address] [place] [phone] Maddie Krueger MD 08/22/2025 Telephone Gastroenterology - [address] [facility] [address] [facility] [address] [place] [address] Lyly Soliman MD 08/15/2025 1:00 PM EDT Office Visit Gastroenterology - [address] [place] [address] Cat Herr PA Positive colorectal cancer screening using Cologuard test (Primary Dx); Nausea; Chronic constipation; Gastroesophageal reflux disease without esophagitis; Large hiatal hernia 08/15/2025 Telephone Gastroenterology - [facility] [address] [facility] [address] [place] [address] Latesha Dexter MA from Last 3 Months Immunizations Immunization Administration Dates Next Due Influenza trivalent, with [...] Safety Answer Date Record ed Physical Abuse Unrecognized value 03/12/2025 Verbal Abuse Unrecognized value 03/12/2025 Comments Unknown Sex and Gender Information [...] EDT Inhaled Oxygen Concentration - - Weight 87.8 kg (193 lb 9.6 oz) 08/15/2025 12:59 PM EDT Height 167.6 cm (5' 6 ) 08/15/2025 12:59 PM EDT Body Mass Index 31.25 08/15/2025 12:59 PM EDT Plan of Treatment Upcoming Encounters Date Type Department Care Team (Late st Contact Info) Description 10/31/2025 9:10 AM EST Office Visit [facility] - [address] [place] [address] Ela Flowers NP [address] [place] [address] [address] [place] [phone] 12/24/2025 11:00 AM EST Ancillary Procedure [facility] - [address] [place] [phone] Health Maintenance Due Date Last Done Comments RSV Immunization Adult Patients (1 - Risk 50-74 years 1-dose series) 2001 Zoster Vaccines (1 of 2) 2001 Cholesterol Screening (Lipid Panel) 10/22/2022 Hepatitis C Screening 10/22/2022 Medicare Annual Wellness Visit 10/22/2022 Social Influencers of Health Screening 10/22/2022 DTaP,Tdap,and Td Vaccines (2 - Td or Tdap) 12/17/2023 12/17/2013 Depression Screening 11/15/2024 COVID-19 Vaccine (3 - season) 2025 03/17/2021, 02/23/2021 Falls Risk Assessment 03/13/2026 03/13/2025 Hypertension/CHF/CAD Annual BMP Blood Test 03/13/2026 03/13/2025, 03/12/2025 Breast Cancer Screening 05/10/2026 05/10/20 24, 01/14/2023, 01/01/2022, Additional history exists Osteoporosis Screening (Bone Density Screening) 01/02/2032 01/02/2022 Colorectal Cancer Screening: Colonoscopy 02/15/2035 02/15/2025 Pneumococcal Vaccine: 50+ Years Completed 07/24/2022, 01/30/2020 Influenza Vaccine Completed 08/08/2025, , 08/22/2024, Additional history exists HIB Vaccines Aged Out No longer eligi [...] Procedure Name Priority Date/Time Associated Diagnosis Comments BASIC METABOLIC PANEL Routine 03/13/2025 6:12 AM EDT EXTERNAL COLONOSCOPY REPORT Routine 02/15/2025 10:51 AM EDT [facility] SCREENING DIGITAL Routine 05/10/2024 4:08 PM EDT Encounter for screening mammogram for malignant neoplasm of breast [facility] DEXA AXIAL SKELETON Routine 01/02/2022 4:14 PM EST Encounter for screening for osteoporosis from Last 3 Months or Most Recently Relevant to Health Maintenance Results * Basic metabolic panel (03/13/2025 6:12 AM EDT) Sodium 138 133 - 145 mmol/L LAB CHEMISTRY METHOD 03/13/2025 7:37 AM [facility] Potassium 3.9 3.5 - 5.5 mmol/L LAB CHEMISTRY METHOD 03/13/2025 7:37 AM [facility] Chloride 108 96 - 110 mmol/L LAB CHEMISTRY METHOD 03/13/2025 7:37 AM [facility] CO2 25 21 - 32 mmol/L LAB CHEMISTRY METHOD 03/13/2025 7:37 AM [facility] Anion Gap 5 3 - 11 LAB CHEMISTRY METHOD 03/13/2025 7:37 AM [facility] Glucose 92 70 - 100 mg/dL LAB CHEMISTRY METHOD 03/13/2025 7:37 AM EDT [facility] BUN 18 5 - 25 mg/dL LAB CHEMISTRY METHOD 03/13/2025 7:37 AM EDT [facility] Creatinine 0.80 0.50 - 1.10 mg/dL LAB CHEMISTRY METHOD 03/13/2025 7:37 AM EDT [facility] eGFR 78 >=60 mL/min/1. 73m2 LAB CHEMISTRY METHOD 03/13/2025 7:37 AM EDT [facility] Comment:Calculation based on the Chronic Kidney Disease Epidemiology Collaboration (CKD-EPI) equation refit without adjustment for race. BUN/Creatinine Ratio 22.5 LAB CHEMISTRY METHOD 03/13/2025 7:37 AM EDT [facility] Calcium 8.9 8.5 - 10.5 mg/dL LAB CHEMISTRY METHOD 03/13/2025 7:37 AM EDT [facility] Blood Venous blood specimen / Unknown Venipuncture / Unknown 03/13/2025 6:12 AM EDT 03/13/2025 6:46 AM EDT Doug Ramirez MD LAB BLOOD ORDERABLES Final Result [facility] [address] [place] [address], * External Colonoscopy Report (02/15/2025 10:51 AM EDT) Anatomical Region Laterality Modality Endoscopy us Historical Provider GI~PROCEDURE ORDERABLES F inal Result * [facility] SCREENING DIGITAL (05/10/2024 4:08 PM EDT) Anatomical Region Laterality Modality Mammography 05/10/2024 10:5 1 AM EDT Narrative 05/10/2024 4:08 PM EDT [facility] Diagnostic Imaging Department [address] [place] [address] Patient: RHETT TIJERINA /Age/Sex: 1950 - 74 - F Unit#: [id number] Location/Status: SPDIMAM/REG CLI Mnemonic/Ordering Site: [facility] Ordering Physician: ANY HICKS MD [facility] Screening Digital - 05/10/24 - 1131 Report Status:Signed EXAM: [facility] Screening Digital EXAM DATE AND TIME: 05/10/2024 11:31 AM HISTORY: Screening. Patient states 20 pound weight loss. COMPARISON: 01/14/23, 01/01/22, 11/23/20 TECHNIQUE: Bilateral digital breast tomosynthesis was performed in the CC and MLO projections. Computer aided detection with [employer] 3D 3.1 was employed. TISSUE DENSITY: a. [...] Dic Date/Time: 05/10/24 1608 Sign date/Time: 05/10/24 160 Procedure Note Luci Krueger MD - 08/30/2024 [facility] Diagnostic Imaging Department [address] [place] [address] Patient: RHETT TIJERINA Tala /Age/Sex: 1950 - 74 - F Unit#: [id number] Location/Status: [facility] CLI Mnemonic/Ordering Site: [facility] Ordering Physician: ANY HICKS MD [facility] Screening Digital - 05/10/24 - 1131 Report Status:Signed EXAM: [facility] Screening Digital EXAM DATE AND TIME: 05/10/2024 11:31 AM HISTORY: Screening. Patient states 20 pound weight loss. COMPARISON: 01/14/23, 01/01/22, 11/23/20 TECHNIQUE: Bilateral digital breast tomosynthesis was performed in the CCand MLO projections. Computer aided detection with [employer] 3D 3.1was employed. TISSUE DENSITY: a. The [...] IMG BI PROCEDURES Final Res ult * [facility] DEXA AXIAL SKELETON (01/02/2022 4:14 PM EST) Anatomical Region Laterality Modality Mammography 01/01/2022 10:3 2 AM EST Narrative 01/02/2022 4:14 PM EST [facility] Diagnostic Imaging Department [address] [place] [address] Patient: RHETT TIJERINA /Age/Sex: 1950 - 71 - F Unit#: [id number] Location/Status: SPDIMAM/REG CLI Mnemonic[facility] Ordering Physician: CADEN LANDA MD [facility] Dexa Axial Skeleton - 01/01/22 - 1100 History: Metabolic bone disease. Post menopausal estrogen deficiency. COMPARISON: 10/19/2016, 09/11/2013 and 03/27/2010. Findings: Bone densitometry is performed utilizing dual energy x-ray absorptiometry (DEXA) in the FITiST unit. The lumbar spine and proximal femora [...] 10/19/2016, but density remains within normal range. [id number] Dictating Physician: ENRICO BOND MD Electronically Signed by: ENRICO BOND MD Dic Date/Time: 01/02/22 1610 Sign date/Time: 01/02/22 1614 Procedure Note Enrico Bond MD - 11/04/2022 [facility] Diagnostic Imaging Department [address] [place], [place] [id number] Patient: RHETT TIJERINA S /Age/Sex: 1950 - 71 - F Unit#: [id number] Location/Status: [facility] Mnemonic/Ordering Site: [facility] Ordering Physician: CADEN LANDA MD [facility] Dexa Axial Skeleton - 01/01/22 - 1099 History: Metabolic bone disease. Post menopausal estrogen deficiency. COMPARISON: 10/19/2016, 09/11/2013 and 03/27/2010. Findings: Bone densitometry is performed utilizing dual energy x-rayabsorptiometry (DEXA) in the FITiST unit. The lumbar spine and proximal femoraare [...] 10/19/2016, but density remains within normal range. [id number] Dictating Physician: ENRICO BOND MD Electronically Signed by: ENRICO BOND MD Dic Date/Time: 01/02/22 1610 Sign date/Time: 01/02/22 161 Caden Landa MD IMG BI PROCEDURES Final [...] currently active code status orders. Care Teams See Supervisor Relationship Specialty Start Date End Date Any Hicks MD [address] [facility] [address] [place], [place] PCP - General Internal Medicine 09/10/09
--- OUTSIDE RECORDS SUMMARY | 2025-09-20 17:14 | XMS_ITS | Patient Health Record ---
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 . . 2-3x/week; Duration: 3-4 weeks 05/22/2020 Not-Taking Econazole Nitrate 1 % 1 application to affected area Externally Once a day; Duration: 30 days 08/29/2013 Not-Taking Work Note . . . patient is disab led from work until 07/23/20 Not-Cristopher g Ibuprofen as needed Active Gabapentin 400 MG 1 capsule Orally Onc e a day hs; Duration: 10 days 05/02/2020 Not-Taking Iron Active dexAMETHasone Sodium Phosphate Not-Taking Senna Active Flector Active Tagamet HB Active Nabumetone 750 MG 1 tablet Orally once a day; Duration: 90 day(s) Active Ciclopirox Olamine 0.77 % 1 application to affected area Externally Twice a day to effected areas on feet; Duration: 30 days 03/10/2023 Not-Ne vitale Tramadol & Dietary Manage Prod Not-Taking Clotrimazole-Betamethason e 1-0.05 % 1 application to affected area Externally Twice a day to affected areas on feet; Duration: 30 days 06/09/2023 Not-Taksofia vitale oxyCODONE HCl Not-Ta rizwan Betamethasone Dipropionate 0.05 % 1 application Externally Twice a day; Duration: 30 days 06/14/2023 Not-Taking Vitamin D3 Active AFO-fixed . 1 . Wear daily; Duration: . 06/15/2024 Active Vitamin B12 Active Ammonium Lactate 12 % 1 application Externally to affected areas of dry skin to feet except for between the toes Twice a day; Duration: 30 days Active Atenolol 25 mg Activ e Immunizations Vaccine Route Administration Date Status Comme [...] atherosclerosis of arteries of lower limbs (disorder) ([id number] ) Atherosclerosis of [place] artery of both lower extremities, with unspecified presence of clinical manifestation (I70.203) Active confirmed Q7(A), Q8(2B), Q9(1B,2 C) Vital Signs Blood pressure diastolic 60 mm Hg 08/28/2025 Height 5ft 5in in 08/28/2025 Blood pressure systolic 116 mm Hg 08/28/2025 Weight 193 lbs 08/28/2025 BMI 32.11 kg/m2 08/28/2025 Procedures Procedure Date Ordered Date Performed Result Body Sit e 28736-GHKJVCR NAIL, 6 OR MORE 09/26/2024 N/A 99151-LYLY SKIN LESIONS, OVER 4 09/26/2024 N/A 24371-WBJFHBJ NAIL, 6 OR MORE 12/26/2024 N/A 57527-AHGZ SKIN LESIONS, OVER 4 12/26/2024 N/A 49255-MAUNXNF NAIL, 6 OR MORE 03/30/2025 N/A 62278-OZSS SKIN LESIONS, OVER 4 03/30/2025 N/A 87822-XTHPSPB NAIL, 6 OR MORE 06/05/2025 N/A 17238-NNFQ SKIN LESIONS, OVER 4 06/05/2025 N/A 79601-WQKBSMC NAIL, 6 OR MORE 08/28/2025 N/A 02906-JNJJ SKIN LESIONS, OVER 4 08/28/2025 N/A Encounters Encounter Location Date Provider Diagnosis [address] [address] 09/26/2024 Samuel Moses Atherosclerosis of [place] artery of both lower extremities, with unspecified presence of clinical manifestation I70.203 ; Tinea unguium B35.1 ; Pain in right toe(s) M79.674 ; Pain in left toe(s) M79.675 and Xerosis of skin L85.[address] [address] 12/26/2024 Samuel Moses Atherosclerosis of [place] artery of both lower extremities, with unspecified presence of clinical manifestation I70.203 ; Tinea unguium B35.1 ; Pain in right toe(s) M79.674 ; Pain in left toe(s) M79.675 and Xerosis of skin L85.[address] [address] 03/30/2025 Samuel Moses Atherosclerosis of [place] artery of both lower extremities, with unspecified presence of clinical manifestation I70.203 ; Tinea unguium B35.1 ; Pain in right toe(s) M79.674 and Pain in left toe(s) M79.[address] [address] 06/05/2025 Samuel Moses Atherosclerosis of [place] artery of both lower extremities, with unspecified presence of clinical manifestation I70.203 ; Tinea unguium B35.1 ; Pain in right toe(s) M79.674 and Pain in left toe(s) M79.[address] [address] 08/28/2025 Samuel Lopes Atherosclerosis of [place] artery of both lower extremities, with unspecified presence of clinical manifestation I70.203 ; Tinea unguium B35.1 ; Pain in right toe(s) M79.674 and Pain in left toe(s) M79.[address] [address] 03/22/2025 Samuel Lopes [address] [address] 04/16/2025 Samuel Lopes Xerosis of skin L85. [address] [address] 07/17/2025 Samuel Lopes Assessments Encounter Date Diagnosis (ICD Code) Assessment Notes Treatment Notes Treatment Clinical Notes Section Notes 09/26/2024 Tinea unguium (ICD-10 - B35.1) 09/26/[address] [place] artery of both lower extremities, with unspecified presence of clinical manifestation (ICD-10 - I70.203) Q7(A), Q8(2B), Q9(1B,2C) 12/26/2024 Tinea unguium (ICD-10 - B35.1) 12/26/[address] [place] artery of both lower extremities, with unspecified presence of clinical manifestation (ICD-10 - I70.203) Q7(A), Q8(2B), Q9(1B,2C) 03/30/2025 Tinea unguium (ICD-10 - B35.1) 03/30/[address] [place] artery of both lower extremities, with unspecified presence of clinical manifestation (ICD-10 - I70.203) Q7(A), Q8(2B), Q9(1B,2C) 04/16/2025 Xerosis of skin (ICD-10 - L85.3) 06/05/2025 Tinea unguium (ICD-10 - B35.1) 06/05/[address] [place] artery of both lower extremities, with unspecified presence of clinical manifestation (ICD-10 - I70.203) Q7(A), Q8(2B), Q9(1B,2C) 08/28/2025 Tinea unguium (ICD-10 - B35.1) 08/28/[address] [place] artery of both lower extremities, with unspecified presence of clinical manifestation (ICD-10 - I70.203) Q7(A), Q8(2B), Q9(1B,2C) 08/28/2025 Pain in right toe(s) (ICD-10 - M79.674) 03/30/2025 Pain in right toe(s) (ICD-10 - M79.674) 06/05/2025 Pain in right toe(s) (ICD-10 - M79.674) 12/26/2024 Pain in right toe(s) (ICD-10 - M79.674) 09/26/2024 Pain in right toe(s) (ICD-10 - M79.674) 09/26/2024 Pain in left toe(s) (ICD-10 - M79.675) 12/26/2024 Pain in left toe(s) (ICD-10 - M79.675) 03/30/2025 Pain in left toe(s) (ICD-10 - M79.675) 08/28/2025 Pain in left toe(s) (ICD-10 - M79.675) 06/05/2025 Pain in left toe(s) (ICD-10 - M79.675) 12/26/2024 Xerosis of skin (ICD-10 - L85.3) 09/26/2024 Xerosis of skin (ICD-10 - L85.3) Plan Of Treatment Pending Test Test Name Order Date X ray : Ankle, left 3V 05/01/2020 82467-YQWBJKO NAIL, 6 OR MORE 09/26/2024 63218-QPCBOEV NAIL, 6 OR MORE 12/26/2024 71389-GRQMSSB NAIL, 6 OR MORE 03/30/2025 91090-UBVQPQG NAIL, 6 OR MORE 06/05/2025 21850-HWETLGN NAIL, 6 OR MORE 08/28/2025 91015-Pmztrynz Plate 07/19/2018 43402-Hbrwyjya Plate 10/18/2018 62731-Zxndqqoc Plate 08/11/2011 09153-Ikxdfrdq Plate 11/03/2011 28227-Ttdbhtgm Plate 03/15/2012 42186-Fuyefqsu Plate 08/16/2012 73302-Xinistqn Plate 12/20/2012 71457-Ulhxljsc Plate 04/18/2013 42634-Zgakfejz Plate 08/29/2013 49882-Mwhirpfy Plate 12/15/2013 94725-Vgrvyzsh Plate 07/03/2014 59238-Gtsmdwxe Plate 02/05/2015 89128-Ahelikhk Plate 05/14/2015 26507-Dbfaxpde Plate 08/13/2015 30786-Ztpobyjn Plate 11/29/2015 79079-Anggplkd Plate 03/24/2016 89903-Veucrtts Plate 07/07/2016 41025-Abbjjtvy Plate 10/06/2016 13975-Otvisbwm Plate 01/12/2017 48503-Whfduehu Plate 04/13/2017 97877-Tiaihham Plate 07/13/2017 90343-Vakgxlrj Plate 11/16/2017 02172-Qayogass Plate 02/22/2018 06950-WFTX SKIN LESIONS, OVER 4 12/26/19 25 20068-PDXW SKIN LESIONS, OVER 4 09/26/20 24 34980-PGGC SKIN LESIONS, OVER 4 08/28/20 25 15460-NQHW SKIN LESIONS, OVER 4 06/05/20 25 57996-KGXL SKIN LESIONS, OVER 4 03/30/20 25 03325-BAUYMMWJ OF HEMATOMA/FLUID 022 41110-WBXMDUCQ OF HEMATOMA/FLUID 023 82657-AKQURXWG OF HEMATOMA/FLUID 018 Next Appt Details Provider Name:Samuel Lopes , 01/08/2026 11:00:00 AM, [address] [place], [address], Insurance Providers Payer Name Payer Address Payer Phone Subscriber Number Group Number Insured Name Patient Relationship to Insured Coverage Start Date Coverage End Date [employer] [place] [employer]vantage [address] [facility] [id number] [place], [place] Self - patient is the insured Medical (General) History Medical History History ICD Code sciatica hypertension headaches/migraines back pain Arthritis covid-19 Surgical History Surgery Date(Month/Year) section cholecystectomy Tooth extraction 2020 endoscopy 08/05/22 Hospitalization History Reason Date(Month/Year) [facility]- cellulitis right wrist 02/2025 [facility], Xray 03/2016 Tooth extraction 2015 [facility]- cellulitis left hand 10/28/13- [facility] 07/28 [facility], admitted for kidney fail ure 08/07/13
== END 2025-09-20 14:44 | disposition home or self-care (01) ==
LOC: HO.HOS 14:02
PROVIDERS: PCP Internal Medicine; Visit Provider Orthopaedic Surgery
DX: M25.562 Pain in left knee (principal); M17.12 Unilateral primary osteoarthritis, left knee
CPT/HCPCS: 99214; G2211

== ENCOUNTER → 2025-09-20 14:12 | Outpatient (BNV) | payer MEDICARE, SELFPAY | PROVIDERS: Visit Provider Radiology Diagnostic Radiology | DX: M17.12 Unilateral primary osteoarthritis, left knee (principal); Z96.651 Presence of right artificial knee joint | CPT/HCPCS: 73562 ==

== ENCOUNTER 2025-09-21 10:51 | Outpatient (REF) | payer MEDICARE, SELFPAY ==
--- OUTSIDE RECORDS SUMMARY | 2024-09-18 09:15 | XMS_ITS ---
Author Organization [facility] Address [address] [place] [address] Care Team Providers Care Strip Feeder Name Role Phone Carlito Gill MD Primary Care Provider Samuel Gilmore Unavailable [phone] Shira He [phone] Encounters Encounter Location Date Provider Diagnosis [address] [address] 09/18/2024 Shira He Plan Of Treatment Next Appt Details Provider Name:Samuel Lopes , 01/08/2026 11:00:00 AM, [address] [place] [address], [phone], Progress Notes * Antonietta CASEYDOB:[birth year] (75 yo F)Acc No.[id number]:09/18/2024 Progress Note Patient: Antonietta CUELLAR Provider: Esteban He DPM :1950 A ge:74 Y S ex:Female Date:09/18/2024 Address:[address] [place] [address] [facility] [id number] Pcp:Carlito Gill MD Subjective: * Chief Complaints: [...] Date: 11/18/2023 Generated for Cinthya Mart/Lashon on: 11/21/2024 12:51 PM EST
--- OUTSIDE RECORDS SUMMARY | 2024-09-21 06:30 | XMS_ITS ---
Author Organization [facility] Address [address] [place] [address] Care Team Providers Care Local Delivery Driver Name Role Phone Jairo SALMERON, Carlito Primary Care Provider Samuel Gilmore Unavailable [phone] Shira He [phone] Arguello Encounters Encounter Location Date Provider Diagnosis [address] [address] 09/21/2024 Shira He Plan Of Treatment Next Appt Details Provider Name:Samuel Lopes , 01/08/2026 11:00:00 AM, [address] [place], [address], Progress Notes * Antonietta CASEYDOB:[birth year] (75 yo F)Acc No.[id number]:09/21/2024 Progress Note Patient: Antonietta CUELLAR Provider: Esteban He DPM :1950 A ge:74 Y S ex:Female Date:09/21/2024 Address:[address] [place] [address] [facility] [place], [id number] Pcp:Carlito Gill MD Subjective: * Chief Complaints: * [address] Arguello. * Medical History: Objective: * Vitals: Assessment: Plan: * Treatment: * Images: * The named appointment provid er may or may not be the originator of this progress note, and it is not deemed complete until electronically signed by the appointment provider. Sign off status: Pending * Provider: Esteabn He DPM Date: 11/21/2023 Generated for Cinthya Virk on: 11/21/2024 12:51 PM EST
--- OUTSIDE RECORDS SUMMARY | 2025-06-26 10:45 | XMS_ITS ---
Author Organization [facility] Address [address] [place] [address] Care Team Providers Care Boiler Tester Name Role Phone Carlito Gill MD Primary Care Provider Samuel Gilmore Unavailable [phone] Encounters Encounter Location Date Provider Diagnosis [address] [address] 06/26/2025 Samuel Lopes Plan Of Treatment Next Appt Details Provider Name:Samuel Lopes , 01/08/2026 11:00:00 AM, [address] [place] [address], [phone], Progress Notes * Antonietta CASEYDOB:[birth year] (75 yo F)Acc No.[id number]:06/26/2025 Progress Note Patient: Antonietta CUELLAR Provider: Wesley Lopes DPM :1950 A ge:75 Y S ex:Female Date:06/26/2025 Address:[address] [place] [address] [facility] [place], [id number] Pcp:Carlito Gill MD Subjective: * Chief Complaints: [...] 06/26/2025 Generated for Cinthya vitale/Shahla/Lashon on: 1 11/21/2024 12:52 PM EST
--- OUTSIDE RECORDS SUMMARY | 2025-08-24 07:45 | XMS_ITS ---
Author Organization [facility] Address [address] [place] [address] Care Team Providers Care Nipple Maker Name Role Phone Carlito Gill MD Primary Care Provider Samuel Gilmore Unavailable [phone] Encounters Encounter Location Date Provider Diagnosis [address] [address] 08/24/2025 Samuel Lopes Plan Of Treatment Next Appt Details Provider Name:Samuel Lopes , 01/08/2026 11:00:00 AM, [address] [place] [address], [phone], Progress Notes * Antonietta CASEYDOB:[birth year] (75 yo F)Acc No.[id number]:08/24/2025 Progress Note Patient: Antonietta CUELLAR Provider: Wesley Lopes DPM :1950 A ge:75 Y S ex:Female Date:08/24/2025 Address:[address] [place] [address] [facility] [place] [id number] Pcp:Carlito Gill MD Subjective: * Chief Complaints: * * Medical History: Objective: * Vitals: Assessment: Plan: * Treatment: * Images: * The named appointment provid er may or may not be the originator of this progress note, and it is not deemed complete until electronically signed by the appointment provider. Sign off status: Pending * Provider: Wesley Lopes DPM Date: 1 Generated for Cinthya vitale/Shahla/Lashon on: 11/21/2024 12:52 PM EST
[2025-09-21 11:10] LABS: MANUAL DIFF FLAG NO
[2025-09-21 11:44] LABS: Hematocrit 42.7 % (37.0-47.0); Hemoglobin 13.4 g/dl (12.0-16.0); Imm Gran Abs Auto 0.01 X10*3/uL (0.00-0.03); Imm Gran Pct Auto 0.2 % (0.0-0.4); Lymphocytes Absolute Auto 1.4 X10*3/uL (1.2-4.9); Mean Corpuscular HGB Conc 31.4 g/dl (31.0-35.0); Mean Corpuscular Hemoglobin 26.9 pg (27.0-33.0); Mean Corpuscular Volume 85.6 fL (80.0-98.0); NRBC Abs Auto 0.000 X10*3/uL (0.0-0.012); NRBC Pct Auto 0.0 /100WBC (0.0-0.2); Platelet Count 255 X10*3/uL (160-400); Red Blood Count 4.99 X10*6/uL (4.20-5.50); White Blood Count 5.7 X10*3/uL (4.8-10.8)
[2025-09-21 12:13] LABS: Anion Gap 13 (12-20); Blood Urea Nitrogen 26 mg/dL (9-16); Calcium 9.7 mg/dL (8.4-10.2); Carbon Dioxide 25 mmol/L (22-29); Chloride 105 mmol/L (96-108); Estimated Glomerular Filt Rate > 60; Potassium 4.0 mmol/L (3.3-5.1); Sodium 139 mmol/L (135-145)
--- OUTSIDE RECORDS SUMMARY | 2025-09-21 12:52 | XMS_ITS | Clinical Summary ---
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
--- OUTSIDE RECORDS SUMMARY | 2025-09-21 12:52 | XMS_ITS | Clinical Summary ---
Author Organization [facility] Address [address] [place] [address] Phone Care Team Providers Care Lead Dental Assistant Name Role Phone Any Hicks MD Primary Care Provider Allergies Active Allergy Reactions Criticality Noted Date Comments Cardioplegic Soln 06/04/2023 Microplegia Msa-msg [Plegisol] Other Reaction(s): OTHER Unknown Patient record w/[facility] Meperidine Hcl Nausea And Vomiting 11/16/2024 [...] for carpal tunnel diagnosed on EMG at [facility]. On exam, there is [...] Overview (11/16/2024): Low blood pressure Paroxysmal tachycardia ([facility] V24, CMS/HCC V28 ) 06/03/2023 Overview (11/16/2024): Paroxysmal tachycardia Pericardial effusion 06/03/2023 Overview (11/16/2024): Pericardial effusion, Norovirus 2016 Ascending aorta dilation (CMS/[facility] V24) Overview (11/16/2024): Last Assessment [...] ordered to assess for change. Atrial tachycardia ([facility] V24) 02/18/2021 Overview (11/16/2024): 2003 [...] Type Department Care Team Description 09/10/2025 Telephone [facility] - [address] [place] [phone] Maddie Krueger MD 08/22/2025 Telephone Gastroenterology - [address] [facility] [address] [facility] [address] [place] [address] Lyly Soliman MD 08/15/2025 1:00 PM EDT Office Visit Gastroenterology - [address] [place] [address] Cat Herr PA Positive colorectal cancer screening using Cologuard test (Primary Dx); Nausea; Chronic constipation; Gastroesophageal reflux disease without esophagitis; Large hiatal hernia 08/15/2025 Telephone Gastroenterology - [place] [address] [facility] [address] [place] [address] Latesha Dexter MA from Last [...] Description 10/31/2025 9:10 AM EST Office Visit [facility] - [address] [place] [address] Ela Flowers NP [address] [place] [address] [address] [place] [phone] 12/24/2025 11:00 AM EST Ancillary Procedure [facility] - [address] [place] [phone] Health Maintenance Due Date Last Done Comments [...] COLONOSCOPY REPORT Routine 02/15/2025 10:51 AM EDT [facility] SCREENING DIGITAL Routine 05/10/2024 4:08 PM EDT Encounter for screening mammogram for malignant neoplasm of breast [facility] DEXA AXIAL SKELETON Routine 01/02/2022 4:14 PM EST Encounter for screening for osteoporosis from Last 3 Months or Most Recently Relevant to Health Maintenance Results * Basic metabolic panel (03/13/2025 6:12 AM EDT) Sodium 138 133 - 145 mmol/L LAB CHEMISTRY METHOD 03/13/2025 7:37 AM [facility] Potassium 3.9 3.5 - 5.5 mmol/L LAB CHEMISTRY METHOD 03/13/2025 7:37 AM [facility] Chloride 108 96 - 110 mmol/L LAB CHEMISTRY METHOD 03/13/2025 7:37 AM [facility] CO2 25 21 - 32 mmol/L LAB CHEMISTRY METHOD 03/13/2025 7:37 AM [facility] Anion Gap 5 3 - 11 LAB CHEMISTRY METHOD 03/13/2025 7:37 AM [facility] Glucose 92 70 - 100 mg/dL LAB CHEMISTRY METHOD 03/13/2025 7:37 AM EDT [facility] BUN 18 5 - 25 mg/dL LAB CHEMISTRY METHOD 03/13/2025 7:37 AM EDT [facility] Creatinine 0.80 0.50 - 1.10 mg/dL LAB CHEMISTRY METHOD 03/13/2025 7:37 AM EDT [facility] eGFR 78 >=60 mL/min/1. 73m2 LAB CHEMISTRY METHOD 03/13/2025 7:37 AM EDT [facility] Comment:Calculation based on the Chronic Kidney Disease Epidemiology Collaboration (CKD-EPI) equation refit without adjustment for race. BUN/Creatinine Ratio 22.5 LAB CHEMISTRY METHOD 03/13/2025 7:37 AM EDT [facility] Calcium 8.9 8.5 - 10.5 mg/dL LAB CHEMISTRY METHOD 03/13/2025 7:37 AM EDT [facility] Blood Venous blood specimen / Unknown Venipuncture / Unknown 03/13/2025 6:12 AM EDT 03/13/2025 6:46 AM EDT Doug Ramirez MD LAB BLOOD ORDERABLES Final Result [facility] [address] [place] [address], * External Colonoscopy Report (02/15/2025 10:51 AM EDT) Anatomical Region Laterality Modality Endoscopy us Historical Provider GI~PROCEDURE ORDERABLES F inal Result * [facility] SCREENING DIGITAL (05/10/2024 4:08 PM EDT) Anatomical Region Laterality Modality Mammography 05/10/2024 10:5 1 AM EDT Narrative 05/10/2024 4:08 PM EDT [facility] Diagnostic Imaging Department [address] [place] [address] Patient: RHETT TIJERINA /Age/Sex: 1950 - 74 - F Unit#: [id number] Location/Status: SPDIMAM/REG CLI Mnemonic/Ordering Site: [facility] Ordering Physician: ANY HICKS MD [facility] Screening Digital - 05/10/24 - 1131 Report Status:Signed EXAM: [facility] Screening Digital EXAM DATE AND TIME: 05/10/2024 11:31 AM HISTORY: Screening. Patient states 20 pound weight loss. COMPARISON: 01/14/23, 01/01/22, 11/23/20 TECHNIQUE: Bilateral digital breast tomosynthesis was performed in the CC and MLO projections. Computer aided detection with Mail'Inside 3D 3.1 was employed. TISSUE DENSITY: a. [...] Procedure Note Luci Krueger MD - 08/30/2024 [facility] Diagnostic Imaging Department [address] [place] [address] Patient: RHETT TIJERINA Tala /Age/Sex: 1950 - 74 - F Unit#: [id number] Location/Status: [facility] CLI Mnemonic/Ordering Site: [facility] Ordering Physician: ANY HICKS MD [facility] Screening Digital - 05/10/24 - 1131 Report Status:Signed EXAM: [facility] Screening Digital EXAM DATE AND TIME: 05/10/2024 11:31 AM HISTORY: Screening. Patient states 20 pound weight loss. COMPARISON: 01/14/23, 01/01/22, 11/23/20 TECHNIQUE: Bilateral digital breast tomosynthesis was performed in the CCand MLO projections. Computer aided detection with Mail'Inside 3D 3.1was employed. TISSUE DENSITY: a. The [...] IMG BI PROCEDURES Final Res ult * [facility] DEXA AXIAL SKELETON (01/02/2022 4:14 PM EST) Anatomical Region Laterality Modality Mammography 01/01/2022 10:3 2 AM EST Narrative 01/02/2022 4:14 PM EST [facility] Diagnostic Imaging Department [address] [place] [address] Patient: RHETT TIJERINA /Age/Sex: 1950 - 71 - F Unit#: [id number] Location/Status: SPDIMAM/REG CLI [facility] Ordering Physician: CADEN LANDA MD [facility] Dexa Axial Skeleton - 01/01/22 - 1100 History: Metabolic bone disease. Post menopausal estrogen deficiency. COMPARISON: 10/19/2016, 09/11/2013 and 03/27/2010. Findings: Bone densitometry is performed utilizing dual energy x-ray absorptiometry (DEXA) in the MyCube unit. The lumbar spine and proximal femora [...] 10/19/2016, but density remains within normal range. [address] Dictating Physician: ENRICO BOND MD Electronically Signed by: ENRICO BOND MD Dic Date/Time: 01/02/22 1610 Sign date/Time: 01/02/22 1614 Procedure Note Enrico Bond MD - 11/04/2022 [facility] Diagnostic Imaging Department [address] [place], [place] [id number] Patient: RHETT TIJERINA S /Age/Sex: 1950 - 71 - F Unit#: [id number] Location/Status: [facility] Mnemonic/Ordering Site: [facility] Ordering Physician: CADEN LANDA MD [facility] Dexa Axial Skeleton - 01/01/22 - 1099 History: Metabolic bone disease. Post menopausal estrogen deficiency. COMPARISON: 10/19/2016, 09/11/2013 and 03/27/2010. Findings: Bone densitometry is performed utilizing dual energy x-rayabsorptiometry (DEXA) in the MyCube unit. The lumbar spine and proximal femoraare [...] 10/19/2016, but density remains within normal range. [id number] Dictating Physician: ENRICO BOND MD Electronically Signed [...] currently active code status orders. Care Teams Lead Dental Assistant Relationship Specialty Start Date End Date Any Hicks MD [address] [facility] [address] [place], [place] PCP - General Internal Medicine 09/10/09
--- OUTSIDE RECORDS SUMMARY | 2025-09-21 12:53 | XMS_ITS | Patient Health Record ---
[facility] Address [address] [place] [address] Care Team Providers Care Cellulose Insulation Helper Name Role Phone Jairo SALMERON, Carlito Primary Care Provider Samuel Gilmore Unavailable [phone] Shira He Unavailable [phone] Allergies Allergen (clinical drug ingredient) Drug/Non Drug [...] atherosclerosis of arteries of lower limbs (disorder) ([id number] ) Atherosclerosis of ho-chunk artery of both lower extremities, with unspecified presence of clinical manifestation (I70.203) Active confirmed Q7(A), Q8(2B), Q9(1B,2 C) Vital Signs Blood pressure diastolic 60 mm Hg 08/28/2025 Height 5ft 5in in 08/28/2025 Blood pressure systolic 116 mm Hg 08/28/2025 Weight 193 lbs 08/28/2025 BMI 32.11 kg/m2 08/28/2025 Procedures Procedure Date Ordered Date Performed Result Body Sit e 09866-IIEFRFH NAIL, 6 OR MORE 09/26/2024 N/A 92979-VGNI SKIN LESIONS, OVER 4 09/26/2024 N/A 00353-IKXOQBE NAIL, 6 OR MORE 12/26/2024 N/A 41962-NRPJ SKIN LESIONS, OVER 4 12/26/2024 N/A 72691-LUKEFYH NAIL, 6 OR MORE 03/30/2025 N/A 36790-IUQU SKIN LESIONS, OVER 4 03/30/2025 N/A 11785-ZLMFAPH NAIL, 6 OR MORE 06/05/2025 N/A 65747-GTZI SKIN LESIONS, OVER 4 06/05/2025 N/A 51226-NZPBHIQ NAIL, 6 OR MORE 08/28/2025 N/A 63316-EHLD SKIN LESIONS, OVER 4 08/28/2025 N/A Encounters Encounter Location Date Provider Diagnosis [address] [address] 09/26/2024 Samuel Moses Atherosclerosis of ho-chunk artery of both lower extremities, with unspecified presence of clinical manifestation I70.203 ; Tinea unguium B35.1 ; Pain in right toe(s) M79.674 ; Pain in left toe(s) M79.675 and Xerosis of skin L85.[address] [address] 12/26/2024 Samuel Moses Atherosclerosis of ho-chunk artery of both lower extremities, with unspecified presence of clinical manifestation I70.203 ; Tinea unguium B35.1 ; Pain in right toe(s) M79.674 ; Pain in left toe(s) M79.675 and Xerosis of skin L85.[address] [address] 03/30/2025 Samuel Moses Atherosclerosis of ho-chunk artery of both lower extremities, with unspecified presence of clinical manifestation I70.203 ; Tinea unguium B35.1 ; Pain in right toe(s) M79.674 and Pain in left toe(s) M79.[address] [address] 06/05/2025 Samuel Moses Atherosclerosis of ho-chunk artery of both lower extremities, with unspecified presence of clinical manifestation I70.203 ; Tinea unguium B35.1 ; Pain in right toe(s) M79.674 and Pain in left toe(s) M79.[address] [address] 08/28/2025 Samuel Lopes Atherosclerosis of ho-chunk artery of both lower extremities, with unspecified presence of clinical manifestation I70.203 ; Tinea unguium B35.1 ; Pain in right toe(s) M79.674 and Pain in left toe(s) M79.[address] [address] 03/22/2025 Samuel Lopes [address] [address] 04/16/2025 Samuel Lopes Xerosis of skin L85. [address] [address] 07/17/2025 Samuel Lopes Assessments Encounter Date Diagnosis (ICD Code) Assessment Notes Treatment Notes Treatment Clinical Notes Section Notes 09/26/2024 Tinea unguium (ICD-10 - B35.1) 09/26/2024 Atherosclerosis of ho-chunk artery of both lower extremities, with unspecified presence of clinical manifestation (ICD-10 - I70.203) Q7(A), Q8(2B), Q9(1B,2C) 12/26/2024 Tinea unguium (ICD-10 - B35.1) 12/26/2024 Atherosclerosis of ho-chunk artery of both lower extremities, with unspecified presence of clinical manifestation (ICD-10 - I70.203) Q7(A), Q8(2B), Q9(1B,2C) 03/30/2025 Tinea unguium (ICD-10 - B35.1) 03/30/2025 Atherosclerosis of ho-chunk artery of both lower extremities, with unspecified presence of clinical manifestation (ICD-10 - I70.203) Q7(A), Q8(2B), Q9(1B,2C) 04/16/2025 Xerosis of skin (ICD-10 - L85.3) 06/05/2025 Tinea unguium (ICD-10 - B35.1) 06/05/2025 Atherosclerosis of ho-chunk artery of both lower extremities, with unspecified presence of clinical manifestation (ICD-10 - I70.203) Q7(A), Q8(2B), Q9(1B,2C) 08/28/2025 Tinea unguium (ICD-10 - B35.1) 08/28/2025 Atherosclerosis of ho-chunk artery of both lower extremities, with unspecified [...] X ray : Ankle, left 3V 05/01/2020 41694-VXOYPFR NAIL, 6 OR MORE 09/26/2024 77707-WDTMDBL NAIL, 6 OR MORE 12/26/2024 84456-ZZQUBAT NAIL, 6 OR MORE 03/30/2025 79808-DBGQODQ NAIL, 6 OR MORE 06/05/2025 59677-GJUOZWU NAIL, 6 OR MORE 08/28/2025 63256-Lkpvxwhj Plate 07/19/2018 34872-Lrvbeejh Plate 10/18/2018 25254-Cmnyxpar Plate 08/11/2011 52366-Ikwtqffk Plate 11/03/2011 43370-Knmmlewz Plate 03/15/2012 51656-Nqptxmny Plate 08/16/2012 98251-Pizzemsw Plate 12/20/2012 36772-Awuwmucr Plate 04/18/2013 11068-Qgaolcut Plate 08/29/2013 18391-Bynrqrwh Plate 12/15/2013 18473-Huuicoql Plate 07/03/2014 67114-Gauodiat Plate 02/05/2015 00181-Efufknzv Plate 05/14/2015 12587-Mzuvarwc Plate 08/13/2015 60800-Sdenbshl Plate 11/29/2015 10558-Fxuizxnb Plate 03/24/2016 92869-Umvjofjn Plate 07/07/2016 40768-Wwefkvcl Plate 10/06/2016 93476-Wcdmgdmq Plate 01/12/2017 96460-Ssgmoobl Plate 04/13/2017 14922-Wrzskvax Plate 07/13/2017 59527-Opwobvhr Plate 11/16/2017 20703-Umjvuofj Plate 02/22/2018 87816-ZLQJ SKIN LESIONS, OVER 4 12/26/19 25 24365-EWJI SKIN LESIONS, OVER 4 09/26/20 24 42920-PMEO SKIN LESIONS, OVER 4 08/28/20 25 91875-RTAJ SKIN LESIONS, OVER 4 06/05/20 25 89970-RXRJ SKIN LESIONS, OVER 4 03/30/20 25 81615-SQNJJCPX OF HEMATOMA/FLUID 022 79647-JTYUELRU OF HEMATOMA/FLUID 023 26425-YASYFJKY OF HEMATOMA/FLUID 018 Next Appt Details Provider Name:Samuel Lopes , 01/08/2026 11:00:00 AM, [address] [place], [address], Insurance Providers Payer Name Payer Address Payer Phone Subscriber Number Group Number Insured Name Patient Relationship to Insured Coverage Start Date Coverage End Date [employer]age [address] [facility] [id number] [phone] [id number] [place], [place] Self - patient is the insured Medical (General) History Medical History History ICD Code sciatica hypertension headaches/migraines back pain Arthritis covid-19 Surgical History Surgery Date(Month/Year) section cholecystectomy Tooth extraction 2020 endoscopy 08/05/22 Hospitalization History Reason Date(Month/Year) [facility]- cellulitis right wrist 02/2025 [facility], MRI, Xray 03/2016 Tooth extraction 2015 [facility]- cellulitis left hand 10/28/13- [facility] for rehab 07/28 [facility], admitted for kidney fail ure 08/07/13
== END 2025-09-21 10:52 | disposition home or self-care (01) ==
LOC: HO.LAB 10:51
PROVIDERS: PCP Internal Medicine; Visit Provider Orthopaedic Surgery
DX: Z01.818 Encounter for other preprocedural examination (principal); Z13.1 Encounter for screening for diabetes mellitus
CPT/HCPCS: 36415; 80048; 83036; 85025

== ENCOUNTER 2025-09-24 07:11 | Day surgery (SDC) | payer MEDICARE, SELFPAY ==
--- OUTSIDE RECORDS SUMMARY | 2025-06-26 11:45 | XMS_ITS ---
Author Organization [facility] Address [address] [place] [address] Care Team Providers Care Graphic Art Technician Name Role Phone Carlito Gill MD Primary Care Provider Samuel Gilmore Unavailable [phone] Encounters Encounter Location Date Provider Diagnosis [address] [address] 06/26/2025 Samuel Lopes Plan Of Treatment Next Appt Details Provider Name:Samuel Lopes , 08/28/2025 10:00:00 AM, [address] [place] [address], [phone], Progress Notes * Antonietta CASEYDOB:[birth year] (75 yo F)Acc No.[id number]:06/26/2025 Progress Note Patient: Antonietta CUELLAR Provider: Wesley Lopes DPM :1950 A ge:75 Y S ex:Female Date:06/26/2025 Address:[address] [place] [address] [facility] [place], [id number] Pcp:Carlito Gill MD Subjective: * Chief Complaints: [...] 0 06/26/2025 Generated for Cinthya vitale/Shahla/Lashon on: 0 08/01/2025 05:38 PM EDT
--- OUTSIDE RECORDS SUMMARY | 2025-08-01 17:38 | XMS_ITS | Clinical Summary ---
Author Organization [facility] Address [address] [place] [address] Care Team Providers Care Quirk Sander Name Role Phone Carlito Gill MD Primary [...] 3 05/08/2017 Active ergocalciferol (VITAMIN D2) capsule 48901 units TAKE ONE CAPSULE BY MOUTH ONE [...] Osteoporosis Screening (DEXA Scan) 2016 COVID-19 Vaccine (2024-2 6 season) 2025 03/17/2021, 02/23/2021 Influenza Vaccine (#1) 2025 , 09/13/2020 RSV Adult > 60+ Yrs or (1 - 1-dose 75+ series) 2026 Pneumococcal Vaccine Completed 07/24/2022, 01/30/2020 Hepatitis B Vaccines Aged Out No long er eligible based on patient's age to complete this topic RSV Ped < 20 months Aged Out No longe r eligible based on patient's age to complete this topic Care Teams Quirk Sander Relationship Specialty Start Date End Date Carlito Gill MD PCP - General Internal Medicine 06/11/17
--- OUTSIDE RECORDS SUMMARY | 2025-08-01 17:39 | XMS_ITS | Patient Health Record ---
Author Organization [facility] Address [address] [place] [address] Care Team Providers Care Assistant Unit Forester Name Role Phone Jairo SALMERON, Carlito Primary Care Provider Samuel Gilmore Unavailable [phone] Shira He Unavailable [phone] Allergies Allergen (clinical drug ingredient) Drug/Non Drug Allergy documented on EMR Reaction Allergy Type Onset Date Status Ritika type anesthetics (uncoded) Unknown Allergy Active meperidine Demerol Unknown Drug Allergy Active Penicillin Unknown Drug Allergy Active Substance with sulfonamide structure and antibacterial mechanism of action (substance) Sulfa Antibiotics Unknown Drug Allergy Active Reason For Referral No Information Medications Medication SIG (Take, Route, Frequency, Duration) Notes Start Date End Date Status Betamethasone Dipropionate 0.05 % 1 application Externally Twice a day; Duration: 30 days 06/14/2023 Active Clotrimazole-Betamethason e 1-0.05 % 1 application to affected area Externally Twice a day to affected areas on feet; Duration: 30 days 06/09/2023 Active oxyCODONE HCl Not-Ta rizwan Ciclopirox Olamine 0.77 % 1 application to affected area Externally Twice a day to effected areas on feet; Duration: 30 days 03/10/2023 Active Tramadol & Dietary Manage Prod Not-Taking Tagamet HB Active Nabumetone 750 MG 1 tablet Orally once a day; Duration: 90 day(s) 09/27/2012 Not-Taking Senna Active Flector Not-Taking Iron Active dexAMETHasone Sodium Phosphate Not-Taking Ibuprofen as needed Active Gabapentin 400 MG 1 capsule Orally Onc e a day hs; Duration: 10 days 05/02/2020 Not-Taking Econazole Nitrate 1 % 1 application to affected area Externally Once a day; Duration: 30 days 08/29/2013 Active Work Note . . . patient is disab led from work until 07/23/20 Not-Cristopher morin Atenolol 25 mg Activ e Physical Therapy . . . 2-3x/week; Duration: 3-4 weeks 05/22/2020 Not-Taking Ammonium Lactate 12 % 1 application Externally to affected areas of dry skin to feet except for between the toes Twice a day; Duration: 30 days Active AFO-fixed . 1 . Wear daily; Duration: . 06/15/2024 Active Immunizations Vaccine Route Administration Date Status Comme nts Influenza Unknown 08/22/2024 Administered COVID-19 Pfizer BioNTech Vaccine Unknown 03/17/2021 Administered 1st 02/23/2021 2nd 03/17/2021 Social History Tobacco Use: Social History Observation Description Date Details (start date - stop date) Never Smoker NA - NA Tobacco use other than smoking: Question Answer Notes Are you an other tobacco user? No Tobacco Control (Standard) Question Answer Notes Tobacco use: Nonsmoker Additional Findings: Tobacco non-user Current no nsmoker AUDIT-C (Standard) Question Answer Notes Did you have a drink containing alcohol in the p ast year? No Points 0 Interpretation Negative Problems Problem Type SNOMED Code ICD Code Onset Dates Problem Status W/U Status Risk Notes Problem Bilateral atherosclerosis of arteries of lower limbs (disorder) ([id number] ) Atherosclerosis of [place] artery of both lower extremities, with unspecified presence of clinical manifestation (I70.203) Active confirmed Q7(A), Q8(2B), Q9(1B,2 C) Vital Signs Blood pressure diastolic 65 mm Hg 06/05/2025 Height 5ft5in in 06/05/2025 Blood pressure systolic 128 mm Hg 06/05/2025 Weight 200 lbs 06/05/2025 BMI 33.28 kg/m2 06/05/2025 Procedures Procedure Date Ordered Date Performed Result Body Sit e 89186-RUXPWVF NAIL, 6 OR MORE 09/26/2024 N/A 67308-VJAJ SKIN LESIONS, OVER 4 09/26/2024 N/A 84434-XLDRNFP NAIL, 6 OR MORE 12/26/2024 N/A 46170-KLQI SKIN LESIONS, OVER 4 12/26/2024 N/A 15287-QRDWDZM NAIL, 6 OR MORE 03/30/2025 N/A 32932-CGZX SKIN LESIONS, OVER 4 03/30/2025 N/A 21450-ZHPCRAK NAIL, 6 OR MORE 06/05/2025 N/A 98051-XKLQ SKIN LESIONS, OVER 4 06/05/2025 N/A Encounters Encounter Location Date Provider Diagnosis [address] [address] 09/26/2024 Samuel Moses Atherosclerosis of [place] artery of both lower extremities, with unspecified presence of clinical manifestation I70.203 ; Tinea unguium B35.1 ; Pain in right toe(s) M79.674 ; Pain in left toe(s) M79.675 and Xerosis of skin L85.[address] [address] 12/26/2024 Samuel Moses Atherosclerosis of [place] artery of both lower extremities, with unspecified presence of clinical manifestation I70.203 ; Tinea unguium B35.1 ; Pain in right toe(s) M79.674 ; Pain in left toe(s) M79.675 and Xerosis of skin L85.[address] [address] 03/30/2025 Samuelbrittney Lopes Atherosclerosis of [place] artery of both lower extremities, with unspecified presence of clinical manifestation I70.203 ; Tinea unguium B35.1 ; Pain in right toe(s) M79.674 and Pain in left toe(s) M79.[address] [address] 06/05/2025 Samuel Moses Atherosclerosis of [place] artery of both lower extremities, with unspecified presence of clinical manifestation I70.203 ; Tinea unguium B35.1 ; Pain in right toe(s) M79.674 and Pain in left toe(s) M79.[address] [address] 03/22/2025 Samuel Moses [facility] [address] [address] 04/16/2025 Samuel Lopes Xerosis of skin L85. [address] [facility] [facility] [address] [address] 07/17/2025 Samuel Lopes Assessments Encounter Date Diagnosis (ICD Code) Assessment Notes Treatment Notes Treatment Clinical Notes Section Notes 09/26/2024 Tinea unguium (ICD-10 - B35.1) 09/26/2024 Atherosclerosis of [place] artery of both lower extremities, with unspecified presence of clinical manifestation (ICD-10 - I70.203) Q7(A), Q8(2B), Q9(1B,2C) 12/26/2024 Tinea unguium (ICD-10 - B35.1) 12/26/2024 Atherosclerosis of [place] artery of both lower extremities, with unspecified presence of clinical manifestation (ICD-10 - I70.203) Q7(A), Q8(2B), Q9(1B,2C) 04/16/2025 Xerosis of skin (ICD-10 - L85.3) 06/05/2025 Tinea unguium (ICD-10 - B35.1) 06/05/2025 Atherosclerosis of [place] artery of both lower extremities, with unspecified presence of clinical manifestation (ICD-10 - I70.203) Q7(A), Q8(2B), Q9(1B,2C) 03/30/2025 Tinea unguium (ICD-10 - B35.1) 03/30/2025 Atherosclerosis of [place] artery of both lower extremities, with unspecified presence of clinical manifestation (ICD-10 - I70.203) Q7(A), Q8(2B), Q9(1B,2C) 03/30/2025 Pain in right toe(s) (ICD-10 - M79.674) 06/05/2025 Pain in right toe(s) (ICD-10 - M79.674) 12/26/2024 Pain in right toe(s) (ICD-10 - M79.674) 09/26/2024 Pain in right toe(s) (ICD-10 - M79.674) 09/26/2024 Pain in left toe(s) (ICD-10 - M79.675) 12/26/2024 Pain in left toe(s) (ICD-10 - M79.675) 06/05/2025 Pain in left toe(s) (ICD-10 - M79.675) 03/30/2025 Pain in left toe(s) (ICD-10 - M79.675) 12/26/2024 Xerosis of skin (ICD-10 - L85.3) 09/26/2024 Xerosis of skin (ICD-10 - L85.3) Plan Of Treatment Pending Test Test Name Order Date X ray : Ankle, left 3V 05/01/2020 17307-SXAOQNC NAIL, 6 OR MORE 09/26/2024 52688-DVZQCPE NAIL, 6 OR MORE 12/26/2024 38984-CYRKGBM NAIL, 6 OR MORE 03/30/2025 04693-VLSJZBL NAIL, 6 OR MORE 06/05/2025 56876-Mwuqarkq Plate 07/19/2018 08321-Zdqguowz Plate 10/18/2018 10014-Aohtubun Plate 08/11/2011 73013-Vfowzjwk Plate 11/03/2011 09136-Sodvuhns Plate 03/15/2012 23897-Lzvwgxdo Plate 08/16/2012 58198-Zquhtvql Plate 12/20/2012 21075-Xtwylsxz Plate 04/18/2013 88892-Wgnuavmy Plate 08/29/2013 11596-Fmehvkbl Plate 12/15/2013 31549-Nooothcs Plate 07/03/2014 06869-Oluqzzrw Plate 02/05/2015 74793-Wgiireff Plate 05/14/2015 39821-Abxepogu Plate 08/13/2015 25648-Rxxuwlbu Plate 11/29/2015 94929-Kgqbgszq Plate 03/24/2016 72533-Bxstbcnu Plate 07/07/2016 23699-Etfzqydo Plate 10/06/2016 08230-Pptjdnpr Plate 01/12/2017 30128-Euavbgbl Plate 04/13/2017 04506-Aoibnzuz Plate 07/13/2017 03325-Xnwkquiz Plate 11/16/2017 40381-Dytbblvs Plate 02/22/2018 90699-XVJD SKIN LESIONS, OVER 4 12/26/19 25 12572-IUGC SKIN LESIONS, OVER 4 09/26/20 24 92612-XJMR SKIN LESIONS, OVER 4 06/05/20 25 07219-UPPU SKIN LESIONS, OVER 4 03/30/20 25 93448-PKALSUOK OF HEMATOMA/FLUID 022 22690-LOCBLKPA OF HEMATOMA/FLUID 023 05655-WPPPPONS OF HEMATOMA/FLUID 018 Next Appt Details Provider Name:Samuel Lopes , 08/28/2025 10:00:00 AM, [address] [place], [address], Insurance Providers Payer Name Payer Address Payer Phone Subscriber Number Group Number Insured Name Patient Relationship to Insured Coverage Start Date Coverage End Date [employer] [address] [place] [address] [id number] [place], [place] Self - patient is the insured 4 Medical (General) History Medical History History ICD Code sciatica hypertension headaches/migraines back pain Arthritis covid-19 Surgical History Surgery Date(Month/Year) section cholecystectomy Tooth extraction 2020 endoscopy 08/05/22 Hospitalization History Reason Date(Month/Year) [facility] cell[facility]itis right [facility]2025 [facility], Xray 03/2016 Tooth extraction 2016 [facility]- [facility] 10/28/13- [facility] for rehab 07/28 [facility], admitted for kidney fail ure 08/07/13
[2025-08-24 10:12] VITALS: BMI 32.1
[2025-09-24] VITALS (10 sets, daily range): BP systolic 94–129; BP diastolic 45–60; PULSE 53–69; RESP 13–22; TEMP 36.1–36.7; O2SAT 96–100
[2025-09-24] MEDS: Lactated Ringers 1,000 ML 100 ML IVCONT ×3 (07:27→23:45)
--- NOTE | 2025-09-24 09:00 | HO.ANESPROP2 ---
Documented by User: Christy Shahid NP 09/24/25 07:52 HPI - Anesthesia Eval Consult details Narrative: 75 yr old female for left total knee replacement, seen in PAT May 2025, original 06/2025 surgery date was cancelled per pt, now scheduled for 09/24/25. s/p right TKR 2023 with [place], woke up during procedure. PONV with [place], will order scopalomine patch. No CP/SOB with ADLs, swims in pool every day in summer. Cellulitis R wrist requiring IV antibxs February 2025 at [facility]. Aortic stenosis: echo updated 04/2025, mean gradient 39, valve area 1.3 cm Cardiac clearance: saw [facility] 06/19/25, she had updated EKG & echo showing stable moderate aortic stenosis; had cardiac PET stress test 11/06 that was negative for ischemia. Ray Periop risk is 0.2%. Medical clearance with labs 04/2025 at [facility] pre op clinic. STOP BANG score: 4-5, intermediate to high risk of TRINH PMFSH Active Problems Active Problems: All Active Problems (Updated 08/23/25 @ 14:23 by Marce Roper, MIKHAIL) Arthritis of right shoulder region (Acute) Right shoulder pain (Acute) Arthritis of left knee (Acute) Status post total right knee replacement (Acute ~02/07/24) Arthritis of right knee (Acute) Right knee pain (Acute) Past Medical History Medical History PONV (postoperative nausea and vomiting) PAT (paroxysmal atrial tachycardia) Aortic stenosis History of cellulitis (~03/13/25) Constipation Arthritis Murmur HTN (hypertension) Pericardial effusion SVT (supraventricular tachycardia) Osteopenia Osteoarthritis Migraine IBS (irritable bowel syndrome) Hiatal hernia GERD (gastroesophageal reflux disease) Diverticulosis Ascending aorta dilation Aortic valve disease Anemia Family History Family history of problems with anesthesia: No Surgical History Surgical History History of total right knee replacement (TKR) (02/07/24) History of esophagogastroduodenoscopy (EGD) H/O colonoscopy History of cervical discectomy (05/26/23) Hx of section Hx of tonsillectomy Hx of cholecystectomy History of Problems with Anesthesia: No Social History Social History Household Members: Spouse Housing: House Are you a primary administrator health care facility to a significant other at home: No Do you presently have visiting nurse or other home services: No Comment: wears brace on left knee Patient Tobacco Use Status: Former Tobacco user Tobacco use type: Cigarette Smoked in Last 30 Days: No e-Cigarette/Vaping Use: Never Used Use of substances other than those prescribed or required for medical reasons: No Have you been hit, kicked, punched, or otherwise hurt by someone within the past year? 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 Meds Allergies Allergy/AdvReac Type Severity Reaction Status Date / Time Penicillins Allergy Intermediate Hives Verified 09/24/25 09:22 meperidine (From Demerol) Allergy Mild Hives Verified 09/24/25 09:22 epinephrine AdvReac Intermediate tachycardia Verified 09/24/25 09:22 Home Medications ?Medication ?Instructions ?Recorded ?Confirmed ?Last Taken ?Type atenolol 25 mg tablet 25 mg PO BEDTIME 05/26/23 09/20/25 Unknown History cholecalciferol (vitamin D3) 50 50 mcg PO DAILY@1900 05/26/23 09/20/25 Unknown History mcg (2,000 unit) tablet ferrous sulfate 325 mg (65 mg 325 mg PO Q OTHER DAY 05/26/23 09/20/25 Unknown History iron) tablet gabapentin 100 mg capsule 100 mg PO BID 01/27/24 09/20/25 Unknown History magnesium hydroxide 311 mg 311 mg PO BEDTIME 01/27/24 09/20/25 Unknown History chewable tablet aspirin 81 mg tablet,delayed 81 mg PO DAILY 06/04/25 09/20/25 09/23/25 History release cyanocobalamin (vitamin B-12) 1,000 mcg PO DAILY 06/04/25 09/20/25 Unknown History 1,000 mcg tablet (Vitamin B-12) docusate sodium 100 mg capsule 100 mg PO BID PRN Constipation 06/04/25 09/20/25 09/24/25 History Exam Pertinent Lab Results Pertinent Lab Results: Done at [facility] 04/2025 WBC 5,5 Hgb 11.8, Hct 38.8 Plt 355 Sodium 139 Potassium 4.3 Glucose 103 BUN 23 Creat 1.09 eGFR 53 Calcium 9.5 TSH 1.96 A1C 5.6% Narrative Narrative: EKG 06/2025 Sinus jim, rate 59 ECHO 04/2025 Left ventricle is normal in size. There is mod hypertrophy. Systolic function is normal with EF 65-70%. No regional LV wall motion abnormalities. Unable to assess diastolic function due to mitral valve disorder. Right ventricle cavity is normal. Right ventricular systolic function is normal Left atrium volume index is severely increased Aortic valve demonstrates mod stenosis. Mild aortic valve regurg There is severe annular calcification. There is trace regurgitation. There is no evidence of mitral valve stenosis. Right ventricular systolic pressure is normal. The RVSP is estimated at 34 mmHg The ascending aortia is dilated 4.2 cm Assessment and Plan Final Anesthetic Review Family History of Problems with Anesthesia: No History of Problems with Anesthesia: No Documented by User: Mana Broussard DO 09/24/25 10:05 [facility] Past Medical History Medical History PONV (postoperative nausea and vomiting) PAT (paroxysmal atrial tachycardia) Aortic stenosis History of cellulitis (~03/13/25) Constipation Arthritis Murmur HTN (hypertension) Pericardial effusion SVT (supraventricular tachycardia) Osteopenia Osteoarthritis Migraine IBS (irritable bowel syndrome) Hiatal hernia GERD (gastroesophageal reflux disease) Diverticulosis Ascending aorta dilation Aortic valve disease Anemia Family History Family history of problems with anesthesia: No Surgical History Surgical History History of total right knee replacement (TKR) (02/07/24) History of esophagogastroduodenoscopy (EGD) H/O colonoscopy History of cervical discectomy (05/26/23) Hx of section Hx of tonsillectomy Hx of cholecystectomy History of Problems with Anesthesia: No Social History Social History Household Members: Spouse Housing: House Are you a primary administrator health care facility to a significant other at home: No Do you presently have visiting nurse or other home services: No Comment: wears brace on left knee Patient Tobacco Use Status: Former Tobacco user Tobacco use type: Cigarette Smoked in Last 30 Days: No e-Cigarette/Vaping Use: Never Used Use of substances other than those prescribed or required for medical reasons: No Have you been hit, kicked, punched, or otherwise hurt by someone within the past year? 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 Meds Allergies Allergy/AdvReac Type Severity Reaction Status Date / Time Penicillins Allergy Intermediate Hives Verified 09/24/25 09:22 meperidine (From Demerol) Allergy Mild Hives Verified 09/24/25 09:22 epinephrine AdvReac Intermediate tachycardia Verified 09/24/25 09:22 Home Medications ?Medication ?Instructions ?Recorded ?Confirmed ?Last Taken ?Type atenolol 25 mg tablet 25 mg PO BEDTIME 05/26/23 09/20/25 Unknown History cholecalciferol (vitamin D3) 50 50 mcg PO DAILY@1900 05/26/23 09/20/25 Unknown History mcg (2,000 unit) tablet ferrous sulfate 325 mg (65 mg 325 mg PO Q OTHER DAY 05/26/23 09/20/25 Unknown History iron) tablet gabapentin 100 mg capsule 100 mg PO BID 01/27/24 09/20/25 Unknown History magnesium hydroxide 311 mg 311 mg PO BEDTIME 01/27/24 09/20/25 Unknown History chewable tablet aspirin 81 mg tablet,delayed 81 mg PO DAILY 06/04/25 09/20/25 09/23/25 History release cyanocobalamin (vitamin B-12) 1,000 mcg PO DAILY 06/04/25 09/20/25 Unknown History 1,000 mcg tablet (Vitamin B-12) docusate sodium 100 mg capsule 100 mg PO BID PRN Constipation 06/04/25 09/20/25 09/24/25 History Exam Exam Date and Time: 09/24/25 0900 Height,Weight and Vital Signs: Height 5 ft 5 in Weight 87.543 kg Vital Signs Temperature 98.0 F 09/24/25 08:45 Pulse Rate 66 09/24/25 08:45 Respiratory Rate 18 09/24/25 08:45 Blood Pressure 104/53 L 09/24/25 08:45 Pulse Oximetry 96 09/24/25 08:45 Oxygen Delivery Method Room Air 09/24/25 08:45 Temperature 98.0 F 09/24/25 08:45 Pulse Rate 66 09/24/25 08:45 Respiratory Rate 18 09/24/25 08:45 Blood Pressure 104/53 L 09/24/25 08:45 Pulse Oximetry 96 09/24/25 08:45 Oxygen Delivery Method Room Air 09/24/25 08:45 Airway Mallampati Class: II TM Dist: >3cm Neck ROM: Full Partial: Upper Heart: S1S2 Lungs: CTAB Assessment and Plan Assessment Anesthesia Assessment: Anesthesia Plan Discussed and Chart Reviewed Final Anesthetic Review Family History of Problems with Anesthesia: No History of Problems with Anesthesia: No NPO: Yes ASA Class: III Final Preanesthetic Review: No Changes in Pt Med Stat, Meds/Allgs Chart Reviewed, Consent Obtained/Reviewed and Anes Risks/Benef Reviewed Patient Risk: Intermediate Procedure Risk: Intermediate Anesthetic Plan Anesthetic Plan: Spinal, Regional Block (left adductor canal block and left ipack block) and Agree w/ Assess. and Plan Disposition: Standard PACU
--- NOTE | 2025-09-24 12:05 | P.BOP_ITS ---
Brief Operative Note Date of Service: 09/24/25 Pre-op diagnosis: Left knee degenerative joint disease Post-op diagnosis: same Procedure: Left total knee arthroplasty Implants: [place] [employer] cemented posterior stabilized total knee arthroplasty with a femoral component size 4 left, a universal tibial component size 4, polyethylene liner size 4 with 9 mm of thickness, tibial stem size 12 mm in diameter by 50 mm in length, an asymmetric patellar component size 32 with 10 mm of thickness Surgeon: Herbert Rodriguez MD Anesthesia: regional and spinal Was an Dental Equipment Mechanic used for this Procedure?: No Dental Equipment Mechanic: Vanessa Stout Estimated blood loss (mL): 200 Pathology: other (Bony fragments from the left femur, tibia and patella) Condition: stable Disposition: PACU
--- NOTE | 2025-09-24 12:09 | P.OP_ITS ---
Operative Note Operative Note Date of Service: 09/24/25 Narrative: After the patient was identified as Antonietta Tijerina and her left knee was initialed by myself the patient was brought to the holding area where a left leg nerve block was performed by the anesthesiologist in routine fashion. The patient was then brought to the operating room where conscious sedation and spinal anesthesia were performed by the anesthesiologist in routine fashion. Because of the patient's allergy to penicillins she was given 900 mg of IV clindamycin preoperatively for infection prophylaxis. The patient's left lower extremity was prepped and draped in sterile fashion. A formal time-out was com pleted. The patient's left knee was placed onto a small bump to produce 30? of knee flexion during exposure. A #10 scalpel blade was used to make a midline incision extending 1 handbreadth proximal and distal to the patella. A second #10 scalpel blade was used to dissect the subcutaneous tissues down to the extensor mechanism. The subcutaneous flaps were maintained as thick as possible. A medial parapatellar arthrotomy was then performed using a #10 scalpel blade. The arthrotomy was begun just medial to the patellar tendon. The arthrotomy was continued 1 cm medial to the patella and then 5 mm into the medial aspect of the quadriceps tendon. The infrapatellar fat pad was partially excised to help with exposure. The soft tissue retinaculum was raised one-half of the way around the medial aspect of the proximal tibia. The patella was everted and the knee was flexed to 90?. There was no injury to the patellar tendon or its insertion onto the tibial tubercle. A drill bit was introduced into the distal aspect of the femur with a starting point 1 cm anterior to the origin of the posterior cruciate ligament. The intramedullary alignment nidhi was put into place. The distal alignment guide was set for a 5 degree valgus cut. The distal cutting block was put into place and we held it with 4 pins. The intramedullary alignment nidhi was removed. Soft tissues were retracted in the distal femoral cut was made using a sagittal saw. The distal aspect of the femur measured to be a size 4 left component. Two drill holes were placed into the distal aspect of the femur marking 3? of external rotation. The distal cutting block was impacted into place and we held it with 2 pins. Soft tissues were retracted and the 4 distal femoral cuts were made using a sagittal saw. Final notching and drilling of the distal aspect of the femur were performed in routine fashion. The trial femoral component was impacted into place. The knee was taken through a full range of motion. The patella tracked well. The patella was everted and the knee was flexed to 90?. The trial component was removed and our attention was directed to the proximal tibia. The medial and lateral menisci were removed using a #10 scalpel blade. A small rim of the medial meniscus was left intact to help prevent injury to the medial collateral ligament. A drill bit was then introduced into the proximal tibia with a starting point midway from medial to lateral and one-third of the way posteriorly. The intramedullary alignment nidhi was put into place. The proximal tibial cutting guide was placed over the alignment nidhi in line with the 2nd toe. The guide was held in place using 3 pins. The intramedullary alignment nidhi was removed. Soft tissues were retracted and the proximal tibial cut was made using a sagittal saw. Inspection of the proximal tibia showed a bony cyst measuring 5 mm x 5 mm x 10 mm along the medial tibial plateau. Because of the presence of the cyst the decision was made to use a tibial stem to help prevent loosening of the tibial component in the future. The proximal tibia measured to be a size 4 component. The tibial tray was put into place with a 9 mm liner. The femoral component was impacted into place. The knee was taken through a full range of motion. There was full flexion and full extension. There was no instability with varus or valgus stress testing with the knee in flexion or extension. The patella tracked well with no medially directed force. The rotation of the tibial tray was marked using electrocautery with the knee in extension. The patella was everted and the knee was flexed to 90?. All trial components were removed. The tibial tray was placed onto the proximal tibia in line with the electrocautery harsh. The tray was held in place using 3 pins. Final broaching and drilling of the proximal tibia were performed in routine fashion. The trial liner and trial femoral component were put into place. The knee was brought into extension and our attention was directed to the patella. The patella measured 25 mm in thickness. The patellar resection guide was set for a 10 mm resection. Soft tissues were retracted and the patella cut was made using a sagittal saw. The remaining patella measured 15 mm in thickness. The undersurface of the patella was measured to be a size 32 asymmetric component. Three drill holes were placed into the undersurface of the patella in routine fashion. The trial component was put into place. The knee was taken through a full range of motion. The patella tracked well. The patella was everted and the knee was flexed to 90?. All trial components were removed. The knee was once again brought into extension and placed onto a small bump. The knee joint was irrigated with copious amounts of normal saline solution via pulse lavage while the cement was mixed. The patella was everted and the knee was flexed to 90?. A small amount of cement was placed along the posterior aspects of the tibial and femoral components. Cement was then pressurized into the proximal tibia. The tibial component was impacted into place. Any excess cement was removed. The polyethylene liner was then impacted into place. Cement was then pressurized into the distal aspect of the femur. A small amount of cement was placed into the intramedullary canal to help reduce bleeding. The femoral component was impacted into place. Any excess cement was removed. The knee was then brought into extension. Cement was pressurized into the undersurface of the patella. The patellar component was put into place and was held with a patella clamp. Any excess cement was removed. Once the cement had hardened the patellar clamp was removed. The knee was taken through a full range of motion. There was full flexion and extension. There was no instability with varus or valgus stress testing with the knee in flexion or extension. The patella tracked well with no medially directed force. The knee joint was irrigated with copious amounts of normal saline solution via pulse lavage. Any significant bleeding vessels were coagulated. The patient's left knee was placed onto a small bump. The arthrotomy was closed with #2 Ethibond [id number] interrupted suture as well as #1 Vicryl [id number] interrupted suture. The wound was once again irrigated. The subcutaneous tissues were closed with 0 Vicryl and 2-0 Vicryl interrupted sutures. The skin was closed with skin reina. Dry sterile dressing and Shravan bandages were placed over the patient's left knee. The patient was awake and alert. The patient was transferred to the recovery room in stable condition. Justification for PA Parole Or Probation Officer: The complexity of this total knee arthroplasty, involving significant bony deformity and soft tissue releases, necessitates the assistance of a qualified surgical first assistant for optimal surgical exposure, hemostasis and efficient execution of the procedure.
[2025-09-24] MEDS: oxyCODONE HCl ER 10 MG TAB.ER.12H PO ×2 (13:19→21:12)
[2025-09-24] MEDS: Milk of Magnesia 30 ML ORAL.SUSP PO (14:47)
--- NOTE | 2025-09-24 16:13 | PHA.MEDREC ---
Addendum entered by Sheela Roman RPh 09/24/25 16:26: REVIEWED BY PHARMACIST Original Note: Pharmacy Consult ? Medication Reconciliation Pharmacy has completed the medication reconciliation. Spoke with pt and she confirmed her medications. Pt confirmed she is taking her Gabapentin 100mg caps 1 cap BID-TID and not as prescribed (1 Am, 1@1200 & 2 at bedtime) and pt took Docusate this morning and Aspirin yesterday and was told to stop all other OTC medications ~1 week ago.
[2025-09-24] MEDS: oxyCODONE HCl Immed Release 5 MG TABLET PO (17:47)
--- NOTE | 2025-09-24 20:23 | HO.PM.IMCN ---
History of Present Illness Data of Consult Service Date: 09/24/25 Requesting physician: Herbert Rodriguez Primary Care Provider: Carlito Gill MD [facility] Reason for consult: medical management Patient is a female with a past medical history significant for PONV, SVT, aortic stenosis, hypertension, pericardial effusion migraines, IBS, hiatal hernia/GERD, ascending aortic dilation and anemia, now s/p left TKA. Medical history and medications were reviewed with the patient. She has no acute medical concerns including chest pain, shortness breath, nausea, vomiting or urinary symptoms. She reports numbness and tingling is wearing in the left lower extremity. Sensation and motor intact. She has been constipated for days prior to her surgery. Review of Systems Constitutional: Constitutional: Denies body ache(s), Denies chills, Denies fatigue, Denies fever(s) and Denies headache(s) Eyes: Eyes: Denies change in vision ENT: Denies headache(s), Denies nasal congestion and Denies sore throat Cardiovascular: Cardiovascular: Denies chest pain, Denies rapid heart rate, Denies leg edema, Denies lightheadedness and Denies dyspnea Respiratory: Respiratory: Denies chest congestion, Denies cough, Denies dyspnea and Denies wheezing Gastrointestinal: Gastrointestinal: Denies abdominal pain, Reports constipation, Denies nausea and Denies vomiting Genitourinary: Genitourinary: Denies difficulty voiding, Denies dysuria and Denies urinary urgency Musculoskeletal: Musculoskeletal: Denies myalgias Integumentary/Breasts: Skin/Breast: Denies rash Neurologic: Denies confusion and Denies headache(s) Psychiatric: Psychiatric: Denies confusion Endocrine: Endocrine: Denies fatigue Hematologic/Lymphatic: Hematologic/Lymphatic: Denies easy bleeding Allergic/Immunologic: Allergic/Immunologic: Denies wheezing [facility] Medical History PONV (postoperative nausea and vomiting) PAT (paroxysmal atrial tachycardia) Aortic stenosis History of cellulitis (~03/13/25) Constipation Arthritis Murmur HTN (hypertension) Pericardial effusion SVT (supraventricular tachycardia) Osteopenia Osteoarthritis Migraine IBS (irritable bowel syndrome) Hiatal hernia GERD (gastroesophageal reflux disease) Diverticulosis Ascending aorta dilation Aortic valve disease Anemia Surgical History History of total right knee replacement (TKR) (02/07/24) History of esophagogastroduodenoscopy (EGD) H/O colonoscopy History of cervical discectomy (05/26/23) Hx of section Hx of tonsillectomy Hx of cholecystectomy Social History Household Members: Spouse Housing: House Are you a primary live in caregiver to a significant other at home: No Do you presently have visiting nurse or other home services: No Comment: wears brace on left knee Patient Tobacco Use Status: Former Tobacco user Tobacco use type: Cigarette Smoked in Last 30 Days: No e-Cigarette/Vaping Use: Never Used Use of substances other than those prescribed or required for medical reasons: No Currently Displaying Signs/Symptoms of Drug Intoxication Withdrawal: No Have you been hit, kicked, punched, or otherwise hurt by someone within the past year? 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 Narrative: No smoking, alcohol or drug use Meds Allergies Allergy/AdvReac Type Severity Reaction Status Date / Time Penicillins Allergy Intermediate Hives Verified 09/24/25 09:22 meperidine (From Demerol) Allergy Mild Hives Verified 09/24/25 09:22 epinephrine AdvReac Intermediate tachycardia Verified 09/24/25 09:22 Active Medications: Current Medications Acetaminophen (Acetaminophen 325 Mg Tablet) 650 mg PO Q6H PRN PRN Reason: Pain, Mild 1-3,fever,headache Aspirin (Aspirin 325 Mg Tablet) 325 mg PO BID [facility] Last Admin: 09/24/25 19:36 Dose: Not Given Atenolol (Atenolol 25 Mg Tablet) 25 mg PO BEDTIME YASMIN; Protocol Celecoxib (Celecoxib 200 Mg Capsule) 200 mg PO BID [facility] Last Admin: 09/24/25 13:20 Dose: 200 mg Cyanocobalamin (Cyanocobalamin (Vitamin B-12) 1,000 Mcg Tablet) 1,000 mcg PO DAILY [facility] Last Admin: 09/24/25 13:20 Dose: 1,000 mcg Cyclobenzaprine HCl (Cyclobenzaprine Hcl 5 Mg Tablet) 5 mg PO Q12H PRN PRN Reason: Muscle Spasm Docusate Sodium (Docusate Sodium 100 Mg Capsule) 100 mg PO BID PRN PRN Reason: Constipation Ferrous Sulfate (Ferrous Sulfate 324 Mg Tablet.Dr) 324 mg PO Q48H [facility] Gabapentin (Gabapentin 100 Mg Capsule) 100 mg PO BID [facility] Last Admin: 09/24/25 13:19 Dose: 100 mg Hydromorphone HCl (Hydromorphone Hcl 1 Mg/Ml Syringe) 0.25 mg IVPUSH Q4H PRN; Protocol PRN Reason: Pain, Severe (Pain Scale 7-10) Lactated Ringer's (Lr) 1,000 mls @ 100 mls/hr IVCONT .Q10H [facility] Last Admin: 09/24/25 13:19 Dose: 100 mls/hr Clindamycin Phosphate (Cleocin) 900 mg in 50 mls @ 50 mls/hr IV Q8H [facility] Stop: 09/25/25 00:01 Last Infusion: 09/24/25 19:13 Dose: Infused Magnesium Hydroxide (Milk Of Magnesia 30 Ml Oral.Susp) 30 ml PO DAILY PRN PRN Reason: Constipation Last Admin: 09/24/25 14:47 Dose: 30 ml Magnesium Oxide (Magnesium Oxide 400 Mg Tablet) 400 mg PO BEDTIME [facility] Methocarbamol (Methocarbamol 500 Mg Tablet) 500 mg PO TID [facility] Last Admin: 09/24/25 14:47 Dose: 500 mg Naloxone HCl (Naloxone Hcl 0.4 Mg/Ml Vial) 0.04 mg IVPUSH Q5M PRN PRN Reason: Excessive sedation or RR < 8 Ondansetron HCl (Ondansetron Hcl 4 Mg/2 Ml Vial) 4 mg IVPUSH Q8H PRN PRN Reason: Nausea and Vomiting Oxycodone HCl (Oxycodone Hcl Immed Release 5 Mg Tablet) 5 mg PO Q4H PRN PRN Reason: Pain, Moderate(Pain Scale 4-6) Last Admin: 09/24/25 17:47 Dose: 5 mg Oxycodone HCl (Oxycodone Hcl Er 10 Mg Tab.Er.12h) 10 mg PO BID [facility] Last Admin: 09/24/25 13:19 Dose: 10 mg Sodium Chloride (0.9 % Sodium Chloride Flush 3 Ml Syringe) 3 ml IVFLUSH QSHIFT [facility] Last Admin: 09/24/25 19:13 Dose: Not Given Vitamin D (Cholecalciferol (Vitamin D3) 25 Mcg Tablet) 50 mcg PO DAILY@1900 [facility] Last Admin: 09/24/25 19:17 Dose: 50 mcg Home Medications ?Medication ?Instructions ?Recorded ?Confirmed ?Last Taken ?Type atenolol 25 mg tablet 25 mg PO BEDTIME 05/26/23 09/24/25 09/23/25 History cholecalciferol (vitamin D3) 50 50 mcg PO DAILY@1900 05/26/23 09/24/25 1 Week Ago History mcg (2,000 unit) tablet ~09/17/25 ferrous sulfate 325 mg (65 mg 325 mg PO Q OTHER DAY 05/26/23 09/24/25 1 Week Ago History iron) tablet ~09/17/25 gabapentin 100 mg capsule 100 mg PO BID-TID nerve pain 01/27/24 09/24/25 09/23/25 History magnesium hydroxide 311 mg 311 mg PO BEDTIME PRN Constipation 01/27/24 09/24/25 09/23/25 History chewable tablet aspirin 81 mg tablet,delayed 81 mg PO DAILY 06/04/25 09/24/25 09/23/25 History release cyanocobalamin (vitamin B-12) 1,000 mcg PO DAILY 06/04/25 09/24/25 09/23/25 History 1,000 mcg tablet (Vitamin B-12) docusate sodium 100 mg capsule 100 mg PO BID PRN Constipation 06/04/25 09/24/25 09/24/25 History famotidine 40 mg tablet 40 mg PO BID 09/24/25 09/24/25 09/24/25 History nystatin 100,000 unit/gram topical 1 appl topical DAILY 09/24/25 09/24/25 09/23/25 History cream Physical Exam Vital Signs and Narrative: Vital Signs: Last Vital Signs Temp 97.7 F 09/24/25 19:32 Pulse 67 09/24/25 19:32 Resp 18 09/24/25 19:32 BP 108/58 L 09/24/25 19:32 Pulse Ox 99 09/24/25 19:32 O2 Del Method Room Air 09/24/25 19:32 O2 Flow Rate 6 09/24/25 12:08 BMI result Body Mass Index 32.1 General: AOx3, no acute distress Resp: CTA bilaterally CVS: +murmur, RRR GI: +BS, NT, no distention Skin: Warm, dry Neuro: Cranial nerves II-XII grossly intact bilaterally. Motor grossly intact bilaterally Extremities: No pitting edema. sensation and motor intact BLE Psych: Appropriate affect Const: General: No confusion Orientation/consciousness: No confusion Neuro: General: No confusion Assessment and Plan (1) Status post total left knee replacement: Status: Acute Plan Patient is a female with a past medical history significant for PONV, SVT, aortic stenosis, hypertension, pericardial effusion migraines, IBS, hiatal hernia/GERD, ascending aortic dilation and anemia, now s/p left TKA. s/p L TKA - POD 0 - pain and nausea controlled - plan per ortho SVT/HTN - atenolol GERD - famotidine anemia - preop CBC normal - iron Thank you for allowing me to participate in the pt's care. Signing off for now. Please contact the medical team if any questions or concerns.
[2025-09-25] MEDS: 0.9 % Sodium Chloride Flush 3 ML SYRINGE IVFLUSH (00:19)
[2025-09-25] MEDS: oxyCODONE HCl Immed Release 5 MG TABLET PO ×2 (02:43→16:26)
[2025-09-25 03:34] VITALS: BP 117/59; PULSE 65; RESP 18; TEMP 36.4
[2025-09-25 06:33] LABS: MANUAL DIFF FLAG NO
[2025-09-25 06:38] LABS: Hematocrit 32.6 % (37.0-47.0); Hemoglobin 10.3 g/dl (12.0-16.0); Imm Gran Abs Auto 0.01 X10*3/uL (0.00-0.03); Imm Gran Pct Auto 0.1 % (0.0-0.4); Lymphocytes Absolute Auto 1.5 X10*3/uL (1.2-4.9); Mean Corpuscular HGB Conc 31.6 g/dl (31.0-35.0); Mean Corpuscular Hemoglobin 26.8 pg (27.0-33.0); Mean Corpuscular Volume 84.7 fL (80.0-98.0); NRBC Abs Auto 0.000 X10*3/uL (0.0-0.012); NRBC Pct Auto 0.0 /100WBC (0.0-0.2); Platelet Count 213 X10*3/uL (160-400); Red Blood Count 3.85 X10*6/uL (4.20-5.50); White Blood Count 7.1 X10*3/uL (4.8-10.8)
[2025-09-25 07:17] VITALS: BP 99/51; PULSE 54; RESP 16; TEMP 36.2; O2SAT 96
[2025-09-25 07:18] LABS: Anion Gap 11 (12-20); Blood Urea Nitrogen 24 mg/dL (9-16); Calcium 9.1 mg/dL (8.4-10.2); Carbon Dioxide 25 mmol/L (22-29); Chloride 108 mmol/L (96-108); Creatinine Clr Calc Pharmacy 56.1; Estimated Glomerular Filt Rate 57; Potassium 4.1 mmol/L (3.3-5.1); Sodium 140 mmol/L (135-145)
--- NOTE | 2025-09-25 08:20 | PM.PNORT ---
Subjective Subjective Date of Service: 09/25/25 Interval history: POD1 s/p LTKA Patient is resting in bed comfortably No overnight events Patient reports pain and is requesting medication to help manage No additional complaints Physical Exam Vital Signs: Vital Signs: Last Vital Signs Temp 97.1 F 09/25/25 07:17 Pulse 54 09/25/25 07:17 Resp 16 09/25/25 07:17 BP 99/51 L 09/25/25 07:17 Pulse Ox 96 09/25/25 07:17 O2 Del Method Room Air 09/25/25 07:17 O2 Flow Rate 6 09/24/25 12:08 BMI result Body Mass Index 32.1 Const: General: cooperative, healthy appearing and no acute distress Resp: Effort & Inspection: normal respiratory effort and able to speak in complete sentences Extrem: Other: left knee dressing is c/d/i. Able to dorsi/plantar flex. Calf is supple and nontender. Sensation intact. Pedal pulse intact. Psych: Appearance: grossly normal Mental Status: mental status grossly normal Attitude: cooperative Procedures Date of Service Date of Service: 09/25/25 Progress Note: A&P Assessment and plan (1) Status post total left knee replacement: Status: Acute Plan Continue pain mgmnt Begin ASA for dvt ppx begin PT for LTKA Dispo planning-Pending PT eval, pain mgmnt Time Spent With Patient Time: Total time managing care of this patient today ____ minutes. Quality Stroke Does the patient have a stroke diagnosis?: No VTE Prior VTE?: No VTE Risk Level:: Medical - moderate - high VTE Device Contraindication: N/A - Device Ordered VTE Drug Contraindication: N/A - Med Ordered
--- NOTE | 2025-09-25 08:23 | W.MHC.F2F ---
Service Date Service Date: 09/25/25 Encounter Date of encounter: 09/26/25 Reasons for Services Signs and symptoms assessed: s/p LTKA Pt. is considered homebound due to recent surgery. Unable to drive, poor balance, poor gait mechanics. Reason for physical therapy: home safety and mobility, therapeutic exercises, restore joint function, gait/transfer training and ADL training Homebound: Leaving the home is medically contraindicated at this time without the asist of a device and/or another person due th the listed conditions above and below. Reason homebound: unsteady gait / fall risk, leg weakness, pain with ambulation, pain with transfers, poor balance / fall risk and unable to drive Certification: Based on the above findings, I certify that this patient is confined to the home and needs intermittent detention care, physical therapy and/or speech therapy, or continues to need occupational therapy. The patient is under my care, and I have initiated the establishment of the plan of care. The patient will be followed by a physician who will periodically review the plan of care. Time Spent With Patient Time: Total time managing care of this patient today ____ minutes.
--- NOTE | 2025-09-25 08:24 | PM.DS ---
DS: Providers Provider Date of Service: 09/24/25 <CARLOS EDUARDO Epstein - Last Filed: 09/26/25 08:28> Date of discharge: 09/26/25 <CARLOS EDUARDO Epstein - Last Filed: 09/26/25 08:28> Primary care physician: Carlito Gill MD <Vanessa Stout PA-C - Last Filed: 09/25/25 08:24> Consults: 09/24/25 12:57 Consult to Case Management Routine Comment: home with services s/p LTKA Consult to Hospitalist Routine Comment: Consulting Provider: [facility] [place] Reason For Exam: Routine medical management <Vanessa Stout PA-C - Last Filed: 09/25/25 08:24> DS: Diagnosis Discharge Diagnosis (1) Status post total left knee replacement: Status: Acute <Vanessa Stout PA-C - Last Filed: 09/25/25 08:24> DS: Summary Hospital Course Hospital Course: The patient underwent a successful left total knee arthroplasty, they were transferred to PACU and then to the floor to recover. During their stay, their vitals were stable, afebrile at 97.7. Labs were unremarkable, H/H 9.8/31.9. POD 1 they were started on Aspirin 325mg po bid for DVT ppx, they also received Physical Therapy services twice a day. Prior to discharge, their dressing was clean dry and intact and the plan was to be discharged home with VNA services. <Vanessa Stout PA-C - Last Filed: 09/25/25 08:24> Time Attestation Discharge Coordination Time (in mins): 30 <Vanessa Stout PA-C - Last Filed: 09/25/25 08:24> Quality: Safe Use of Opioids Does Pt have an Active Cancer Diagnosis on the Problem List?: No <Vanessa Stout PA-C - Last Filed: 09/25/25 08:24> Quality: Stroke Does the patient have a stroke diagnosis?: No <Vanessa Stout PA-C - Last Filed: 09/25/25 08:24> Physical Exam Vital Signs: Vital Signs: Last Vital Signs Temp 97.1 F 09/25/25 07:17 Pulse 54 09/25/25 07:17 Resp 16 09/25/25 07:17 BP 99/51 L 09/25/25 07:17 Pulse Ox 96 09/25/25 07:17 O2 Del Method Room Air 09/25/25 07:17 O2 Flow Rate 6 09/24/25 12:08 BMI result Body Mass Index 32.1 <Vanessa Stout PA-C - Last Filed: 09/25/25 08:24> Const: General: cooperative, healthy appearing and no acute distress <Vanessa Stout PA-C - Last Filed: 09/25/25 08:24> Resp: Effort & Inspection: normal respiratory effort and able to speak in complete sentences <Vanessa Stout PA-C - Last Filed: 09/25/25 08:24> Psych: Appearance: grossly normal <Vanessa Stout PA-C - Last Filed: 09/25/25 08:24> Mental Status: mental status grossly normal <Vanessa Stout PA-C - Last Filed: 09/25/25 08:24> Attitude: cooperative <Vanessa Stout PA-C - Last Filed: 09/25/25 08:24> DS: Data Data Completed and Pending Completed studies during hospitalization [Text1]: Procedures Introduction of Anesthetic Agent into Peripheral Nerves and Plexi, Percutaneous Approach (02/07/24) Replacement of Right Knee Joint with Synthetic Substitute, Cemented, Open Approach (02/07/24) <Vanessa Stout PA-C - Last Filed: 09/25/25 08:24> Pending studies at discharge: Pending at discharge 09/24/25 10:07 Surgical [PTH] Routine <Vanessa Stout PA-C - Last Filed: 09/25/25 08:24> Labs on day of discharge: Laboratory Results - last 24 hr 09/25/25 05:49 WBC 7.1 RBC 3.85 L D Hgb 10.3 L D Hct 32.6 L D MCV 84.7 MCH 26.8 L MCHC 31.6 RDW 15.0 Plt Count 213 MPV 10.0 Immature Gran % (Auto) 0.1 Neut % (Auto) 68.7 Lymph % (Auto) 21.0 [place] % (Auto) 9.5 Eos % (Auto) 0.3 Baso % (Auto) 0.4 Lymph # (Auto) 1.5 [place] # (Auto) 0.7 Eos # (Auto) 0.0 Baso # (Auto) 0.0 Abs Immat Gran (auto) 0.01 Absolute Neuts (auto) 4.9 Absolute Nucleated RBC 0.000 Nucleated RBC % (auto) 0.0 Sodium 140 Potassium 4.1 Chloride 108 Carbon Dioxide 25 Anion Gap 11 L BUN 24 H Creatinine 0.96 Estim Creat Clear Calc 56.1 Estimated GFR 57 Fasting Glucose 98 Calcium 9.1 D <Vanessa Stout PA-C - Last Filed: 09/25/25 08:24> Discharge Plan Discharge Patient Disposition: Home, Self-Care <Vanessa Stout PA-C - Last Filed: 09/25/25 08:24> Referrals: Nina Lutz PA-C [Physician Vp Analysis, Orthopedics] - 2 Weeks Referral Note: 10/10/25 10:45 [facility] [place] [facility] Surgeons Nina Lutz PA-C Wetstone, Andrew S, MD [Primary Care Provider, Internal Medicine] - 1 Week <Vanessa Stout PA-C - Last Filed: 09/25/25 08:24> Discharge Medications: New methocarbamol 500 mg Tablet 500 mg PO TID 7 Days Qty: 21 0RF acetaminophen 325 mg Tablet 650 mg PO Q6H PRN (Reason: Pain, Mild 1-3,Fever,Headache) 30 Days Qty: 240 0RF aspirin 325 mg Tablet 325 mg PO BID 42 Days Qty: 84 0RF celecoxib 200 mg Capsule 200 mg PO BID 30 Days Qty: 60 0RF docusate sodium 100 mg Capsule 100 mg PO BID PRN (Reason: Constipation) 30 Days Qty: 60 0RF gabapentin 100 mg Capsule 100 mg PO BID 7 Days Qty: 14 0RF oxycodone 5 mg Tablet 5 mg PO Q4H PRN (Reason: Pain, Moderate(Pain Scale 4-6)) 7 Days Qty: 42 0RF Rx Instructions: Partial Fill upon patient request. Continued ([place]) walker Misc See Rx Instructions .ROUTE .MEDSUPPLY Qty: 1 0RF Rx Instructions: Folding front wheeled walker (DME) walker Replaced By [facility] See Rx Instructions .ROUTE .MEDSUPPLY Qty: 1 0RF Rx Instructions: Folding front wheeled walker cyanocobalamin (vitamin B-12) [Vitamin B-12] 1,000 mcg Tablet 1,000 mcg PO DAILY famotidine 40 mg tablet 40 mg PO BID nystatin 100,000 unit/gram cream 1 appl topical DAILY magnesium hydroxide 311 mg Tablet,Chewable 311 mg PO BEDTIME PRN (Reason: Constipation) cholecalciferol (vitamin D3) 50 mcg (2,000 unit) tablet 50 mcg PO DAILY@1900 atenolol 25 mg tablet 25 mg PO BEDTIME ferrous sulfate 325 mg (65 mg iron) tablet 325 mg PO Q OTHER DAY Discontinued tramadol 50 mg tablet 50 mg PO Q12H PRN (Reason: pain) Qty: 30 0RF ibuprofen 800 mg tablet 800 mg PO Q8H PRN (Reason: pain) Qty: 90 3RF aspirin 81 mg Tablet,Delayed Release (Dr/Ec) 81 mg PO DAILY docusate sodium 100 mg capsule 100 mg PO BID PRN (Reason: Constipation) gabapentin 100 mg Capsule 100 mg PO BID-TID acetaminophen 325 mg Tablet 650 mg PO Q6H PRN (Reason: Pain, Mild (Pain Scale 1-3)) 30 Days Qty: 240 0RF <Vanessa Stout PA-C - Last Filed: 09/25/25 08:24> Discharge Orders: Discharge Order (Routine); Ordered 09/26/25 Ordered By: Carlito Preston <Vanessa Stout PA-C - Last Filed: 09/25/25 08:24> Diet: Advance to usual diet <Vanessa Sotut PA-C - Last Filed: 09/25/25 08:24> Advance to usual diet <CARLOS EDUARDO Epstein Last Filed: 09/26/25 08:28> Activity on Discharge: Use cane or walker <Vanessa Stout PA-C - Last Filed: 09/25/25 08:24> Use cane or walker <CARLOS EDUARDO Epstein Last Filed: 09/26/25 08:28> Activity Restrictions/Additional Instructions: -Bandage/Incision Site Care: -Ice 20mins at a time -Make sure you use a towel or cloth on your skin as a barrier -DO NOT remove the bandage -Keep Bandage clean, dry and intact -Do not get the bandage wet: -No tub bath, pools or hot tubs -If there are any concerns regarding the bandage please call orthopedics: [phone] -Knee Precautions: -Refrain from putting pillows under the knee -Keep leg straight while resting the knee -Avoid low chairs and deep couches -Use supportive shoes with nonslip soles -No driving for 6 weeks -Physical Therapy: -Patient is WBAT with the use of a walker -Range of Motion: 0-120 degrees. -Strengthening: Quadriceps and hip muscles -Walking: Gait training and gradually increasing distance with walker -Ankle pumps and incentive spirometry to limit the risk of blood clot -Diet: -Resume regular diet as tolerated. -Drink plenty of fluids and eat a high-fiber foods to avoid constipation -This is a common side effect of pain medication) -Take stool softeners as prescribed -Blood Clot Prevention: -Take the prescribed blood thinner (Aspirin) as directed for 6 weeks -Perform ankle pumps and walk frequently with the walker and assistance if needed -Report calf pain, swelling, or shortness of breath immediately <Vanessa Stout PA-C - Last Filed: 09/25/25 08:24> Print Language: Greek <Vanessa Stout PA-C - Last Filed: 09/25/25 08:24>
--- NOTE | 2025-09-25 08:49 | HO.POSTANES ---
Post Anesthesia Evaluation Post Anesthesia Evaluation Date of Service: 09/25/25 Vital Signs: Vital Signs Temp Pulse Resp BP Pulse Ox O2 Del Method 09/25/25 07:17 97.1 F 54 16 99/51 L 96 Room Air 09/25/25 03:34 97.5 F 65 18 117/59 L 09/24/25 21:13 69 111/55 L Anesthesia: Spinal Mental Status: Awake Pain Control: Satisfactory Nausea/Vomiting: None Hydration: Adequate Anesthesia-Related Issues: No Anes. Related Issues
[2025-09-25] MEDS: Ferrous Sulfate 324 MG TABLET.DR PO (09:53)
[2025-09-25] MEDS: oxyCODONE HCl ER 10 MG TAB.ER.12H PO ×2 (09:53→20:32)
--- NOTE | 2025-09-25 11:19 | MHC.CM.PN ---
PT LIVES WITH [facility] HAS OWN RIDE
[2025-09-25] MEDS: Lactated Ringers 1,000 ML 100 ML IVCONT ×2 (14:13→22:24)
[2025-09-25 15:32] VITALS: PULSE 61; RESP 16; TEMP 36.5; O2SAT 93
[2025-09-25 16:16] VITALS: BP 112/58; PULSE 63
[2025-09-25 17:32] VITALS: BP 104/55; PULSE 63
[2025-09-25 19:16] VITALS: BP 110/59; PULSE 69; RESP 18; TEMP 36.6; O2SAT 98
[2025-09-26 03:07] VITALS: BP 126/68; PULSE 62; RESP 18; TEMP 36.8; O2SAT 97
[2025-09-26] MEDS: oxyCODONE HCl Immed Release 5 MG TABLET PO ×3 (04:23→13:36)
[2025-09-26 05:46] LABS: MANUAL DIFF FLAG NO
[2025-09-26 05:53] LABS: Hematocrit 31.9 % (37.0-47.0); Hemoglobin 9.8 g/dl (12.0-16.0); Imm Gran Abs Auto 0.03 X10*3/uL (0.00-0.03); Imm Gran Pct Auto 0.5 % (0.0-0.4); Lymphocytes Absolute Auto 1.6 X10*3/uL (1.2-4.9); Mean Corpuscular HGB Conc 30.7 g/dl (31.0-35.0); Mean Corpuscular Hemoglobin 26.4 pg (27.0-33.0); Mean Corpuscular Volume 86.0 fL (80.0-98.0); NRBC Abs Auto 0.000 X10*3/uL (0.0-0.012); NRBC Pct Auto 0.0 /100WBC (0.0-0.2); Platelet Count 202 X10*3/uL (160-400); Red Blood Count 3.71 X10*6/uL (4.20-5.50); White Blood Count 6.6 X10*3/uL (4.8-10.8)
[2025-09-26 06:09] LABS: Anion Gap 10 (12-20); Blood Urea Nitrogen 20 mg/dL (9-16); Calcium 8.5 mg/dL (8.4-10.2); Carbon Dioxide 26 mmol/L (22-29); Chloride 108 mmol/L (96-108); Creatinine Clr Calc Pharmacy 53.4; Estimated Glomerular Filt Rate 54; Potassium 4.4 mmol/L (3.3-5.1); Sodium 140 mmol/L (135-145)
[2025-09-26 07:19] VITALS: BP 114/58; PULSE 52; RESP 14; TEMP 36.5; O2SAT 94
[2025-09-26] MEDS: Lactated Ringers 1,000 ML 100 ML IVCONT (07:39)
[2025-09-26] MEDS: oxyCODONE HCl ER 10 MG TAB.ER.12H PO (07:41)
[2025-09-26 13:46] VITALS: BP 116/58; PULSE 65; RESP 14; TEMP 36.8; O2SAT 96
--- NOTE | 2025-09-26 14:15 | MHC.CM.PN ---
Patient discharged to home today. She will receive Home services from [facility]. She has arranged for her spouse to provide transportation home.
== END 2025-09-26 13:55 | disposition home health service (06) ==
LOC: HO.SSS 07:11 → HO.S3 12:53
PROVIDERS: Physician Assistant; PCP Internal Medicine; Visit Provider Orthopaedic Surgery
PROC: (CPT 27447; principal; 2025-09-24 09:00)
DX: M25.562 Pain in left knee (principal); M17.12 Unilateral primary osteoarthritis, left knee; M23.52 Chronic instability of knee, left knee; R26.2 Difficulty in walking, not elsewhere classified; G89.18 Other acute postprocedural pain; I10 Essential (primary) hypertension; I35.9 Nonrheumatic aortic valve disorder, unspecified; I47.10 Supraventricular tachycardia, unspecified; R01.1 Cardiac murmur, unspecified; D64.9 Anemia, unspecified; Z79.1 Long term (current) use of non-steroidal anti-inflammatories (NSAID); Z79.82 Long term (current) use of aspirin; Z79.899 Other long term (current) drug therapy; Z88.0 Allergy status to penicillin; Z88.5 Allergy status to narcotic agent; Z88.8 Allergy status to other drugs, medicaments and biological substances; Z96.651 Presence of right artificial knee joint; Z98.890 Other specified postprocedural states; Z87.891 Personal history of nicotine dependence
CPT/HCPCS: 27447; 36415; 80048; 85025; 86850; 86900; 86901; 88305; 88311; 97116; 97162; 97530; A6260; C1776; J0131; J0665; J0736; J1100; J1171; J2003; J2151; J2250; J2371; J2405; J2704; J3010; J3374; J7120

== ENCOUNTER → 2025-09-24 07:11 | Outpatient (BNV) | payer MEDICARE, SELFPAY | PROVIDERS: PCP Internal Medicine; Visit Provider Physician Assistant | DX: Z96.652 Presence of left artificial knee joint (principal) | CPT/HCPCS: 99222 ==

== ENCOUNTER → 2025-09-24 07:11 | Outpatient (BNV) | payer MEDICARE, SELFPAY | PROVIDERS: PCP Internal Medicine; Visit Provider Orthopaedic Surgery | DX: Z47.1 Aftercare following joint replacement surgery (principal); Z96.652 Presence of left artificial knee joint | CPT/HCPCS: 27447; 99024; G0180 ==

== ENCOUNTER 2025-10-10 07:16 | Outpatient (REF) | payer MEDICARE, SELFPAY ==
--- OUTSIDE RECORDS SUMMARY | 2024-09-18 09:15 | XMS_ITS ---
Author Organization [facility] Address [address] [place] [address] Care Team Providers Care Digital Performance Analyst Name Role Phone Carlito Gill MD Primary Care Provider Samuel Gilmore Unavailable [phone] Shira He [phone] Encounters Encounter Location Date Provider Diagnosis [address] [address] 09/18/2024 Shira He Plan Of Treatment Next Appt Details Provider Name:Samuel Lopes , 01/08/2026 11:00:00 AM, [address] [place] [address], [phone], Progress Notes * Antonietta CASEYDOB:[birth year] (75 yo F)Acc No.[id number]:09/18/2024 Progress Note Patient: Antonietta CUELLAR Provider: Esteban He DPM :1950 A ge:74 Y S ex:Female Date:09/18/2024 Address:[address] [place] [address] [facility] [id number] Pcp:Carlito Gill MD Subjective: * Chief Complaints: * * Medical History: Objective: * Vitals: Assessment: Plan: * Treatment: * Images: * The named appointment provid er may or may not be the originator of this progress note, and it is not deemed complete until electronically signed by the appointment provider. Sign off status: Pending * Provider: Esteban He DPM Date: 11/18/2023 Generated for Cinthya Mart/Lashon on: 12/13/2024 07:18 AM EST
--- OUTSIDE RECORDS SUMMARY | 2024-09-21 06:30 | XMS_ITS ---
Author Organization [facility] Address [address] [place] [address] Care Team Providers Care Erection Shop Supervisor Name Role Phone Jairo SALMERON, Carlito Primary Care Provider Samuel Gilmore Unavailable [phone] Shira He [phone] Arguello Encounters Encounter Location Date Provider Diagnosis [address] [address] 09/21/2024 Shira He Plan Of Treatment Next Appt Details Provider Name:Samuel Lopes , 01/08/2026 11:00:00 AM, [address] [place], [address], Progress Notes * Antonietta CASEYDOB:[birth year] (75 yo F)Acc No.[id number]:09/21/2024 Progress Note Patient: Antonietta CUELLAR Provider: Esteban He DPM :1950 A ge:74 Y S ex:Female Date:09/21/2024 Address:[address] [place] [address] [facility], [id number] Pcp:Carlito Gill MD Subjective: * Chief Complaints: [...] Pending * Provider: Esteban He DPM Date: 11/21/2023 Generated for Cinthya Virk on: 12/13/2024 07:18 AM EST
--- OUTSIDE RECORDS SUMMARY | 2025-06-26 10:45 | XMS_ITS ---
Author Organization [facility] Address [address] [place] [address] Care Team Providers Care Medicare Contact Specialist Name Role Phone Carlito Gill MD Primary Care Provider Samuel Gilmore Unavailable [phone] Encounters Encounter Location Date Provider Diagnosis [address] [address] 06/26/2025 Samuel Lopes Plan Of Treatment Next Appt Details Provider Name:Samuel Lopes , 01/08/2026 11:00:00 AM, [address] [place] [address], [phone], Progress Notes * Antonietta CASYEDOB:[birth year] (75 yo F)Acc No.[id number]:06/26/2025 Progress Note Patient: Antonietta CUELLAR Provider: Wesley Lopes DPM :1950 A ge:75 Y S ex:Female Date:06/26/2025 Address:[address] [place] [address] [facility] [place], [id number] Pcp:Carlito Gill MD Subjective: * Chief Complaints: [...] 06/26/2025 Generated for Cinthya vitale/Shahla/Lashon on: 1 12/13/2024 07:18 AM EST
--- OUTSIDE RECORDS SUMMARY | 2025-08-24 07:45 | XMS_ITS ---
Author Organization [facility] Address [address] [place] [address] Care Team Providers Care Director Of Resource Development Name Role Phone Carlito Gill MD Primary Care Provider Samuel Gilmore Unavailable [phone] Encounters Encounter Location Date Provider Diagnosis [address] [address] 08/24/2025 Samuel Lopes Plan Of Treatment Next Appt Details Provider Name:Samuel Lopes , 01/08/2026 11:00:00 AM, [address] [place] [address], [phone], Progress Notes * Antonietta CASEYDOB:[birth year] (75 yo F)Acc No.[id number]:08/24/2025 Progress Note Patient: Antonietta CUELLAR Provider: Wesley Lopes DPM :1950 A ge:75 Y S ex:Female Date:08/24/2025 Address:[address] [place] [address] [facility] [place] [id number] Pcp:Carlito Gill MD Subjective: * Chief Complaints: [...] Date: 1 Generated for Cinthya vitale/Shahla/Lashon on: 12/13/2024 07:19 AM EST
--- OUTSIDE RECORDS SUMMARY | 2025-10-05 06:15 | XMS_ITS ---
Author Organization [facility] Address [address] [place] [id number] Care Team Providers Care Managed Care Nurse Name Role Phone Carlito Gill MD Primary Care Provider Samuel Gilmore Unavailable [phone] Encounters Encounter Location Date Provider Diagnosis [address] [address] 10/05/2025 Samuel Lopes Plan Of Treatment Next Appt Details Provider Name:Samuel Lopes , 01/08/2026 11:00:00 AM, [address] [place] [address], [phone], Progress Notes * Antonietta CASEYDOB:[birth year] (75 yo F)Acc No.[id number]:10/05/2025 Progress Note Patient: Antonietta CUELLAR Provider: Wesley Lopes DPM :1950 A ge:75 Y S ex:Female Date:10/05/2025 Address:[address] [place] [address] [facility] [id number] Pcp:Carlito Gill MD Subjective: * Chief Complaints: * * Medical History: Objective: * Vitals: Assessment: Plan: * Treatment: * Images: * The named appointment provid er may or may not be the originator of this progress note, and it is not deemed complete until electronically signed by the appointment provider. Sign off status: Pending * Provider: Wesley Lopes DPM Date: 12/05/2024 Generated for Cinthya vitale/Shahla/Lashon on: 12/13/2024 07:19 AM EST
--- NOTE | ~2025-10-10 | XR_ITS ---
EXAMINATION: XR KNEE, LEFT CLINICAL INFORMATION: M25.562 - Pain in left knee COMPARISON: X-ray 09/20/2025 TECHNIQUE: AP bilateral knees one view, 2 views of the left knee. FINDINGS: Left knee: Postsurgical changes from left total knee arthroplasty. Expected position and alignment of the arthroplasty components. No acute periprosthetic fractures. No suspicious perihardware lucencies. Small suprapatellar joint fluid. Skin reina. Right knee: Single frontal view, left knee arthroplasty is redemonstrated, with normal articulation. No acute osseous finding seen. XR/XR knee LT 3V IMPRESSION: Left knee: Status post left total knee arthroplasty. No acute osseous findings. Electronically signed by: Selvin Valle MD 10/10/2025 04:31 PM JUAN
--- OUTSIDE RECORDS SUMMARY | 2025-10-13 07:18 | XMS_ITS | Clinical Summary ---
Author Organization [facility] Address [address] [place] [address] Care Team Providers Care School Bus Aide Name Role Phone Carlito Gill MD Primary [...] 3 05/08/2017 Active ergocalciferol (VITAMIN D2) capsule 35011 units TAKE ONE CAPSULE BY MOUTH ONE [...] age to complete this topic Care Teams School Bus Aide Relationship Specialty Start Date End Date Carlito Gill MD PCP - General Internal Medicine 06/11/17
--- OUTSIDE RECORDS SUMMARY | 2025-10-13 07:19 | XMS_ITS | Clinical Summary ---
Author Organization [facility] [address] [facility] Address [address] [place] [address] Phone Care Team Providers Care Bone Char Operator Name Role Phone Any Hicks MD Primary Care Provider Allergies Active Allergy Reactions Criticality Noted Date Comments Cardioplegic Soln 06/04/2023 Microplegia Msa-msg [Plegisol] Other Reaction(s): OTHER Unknown Patient record w/[facility] Meperidine Hcl Nausea And Vomiting 11/16/2024 [...] for carpal tunnel diagnosed on EMG at [facility]. On exam, there is [...] Overview (11/16/2024): Low blood pressure Paroxysmal tachycardia ([facility] V24, CMS/HCC V28 ) 06/03/2023 Overview (11/16/2024): Paroxysmal tachycardia Pericardial effusion 06/03/2023 Overview (11/16/2024): Pericardial effusion, Norovirus 2016 Ascending aorta dilation (CMS/[facility] V24) Overview (11/16/2024): Last Assessment & Plan: [...] ordered to assess for change. Atrial tachycardia ([facility] V24) 02/18/2021 Overview (11/16/2024): 2003 in the [...] Type Department Care Team Description 09/10/2025 Telephone [facility] - [address] [place] [phone] Maddie Krueger MD 08/22/2025 Telephone Gastroenterology - 299 [facility] [address] [place] [address] Lyly Soliman MD 08/15/2025 1:00 PM EDT Office Visit Gastroenterology - [address] [place] [address] Cat Herr PA Positive colorectal cancer screening using Cologuard test (Primary Dx); Nausea; Chronic constipation; Gastroesophageal reflux disease without esophagitis; Large hiatal hernia 08/15/2025 Telephone Gastroenterology - [place] [address] [place] [address] Latesha Dexter MA from Last [...] Description 10/31/2025 9:10 AM EST Office Visit [facility] - [address] [place] [address] Ela Flowers NP [address] [place] [address] [address] [place] [phone] 12/24/2025 11:00 AM EST Ancillary Procedure [facility] - [address] [place] [phone] Health Maintenance Due Date Last Done Comments [...] COLONOSCOPY REPORT Routine 02/15/2025 10:51 AM EDT [facility] SCREENING DIGITAL Routine 05/10/2024 4:08 PM EDT Encounter for screening mammogram for malignant neoplasm of breast [facility] DEXA AXIAL SKELETON Routine 01/02/2022 4:14 PM EST Encounter for screening for osteoporosis from Last 3 Months or Most Recently Relevant to Health Maintenance Results * Basic metabolic panel (03/13/2025 6:12 AM EDT) Sodium 138 133 - 145 mmol/L LAB CHEMISTRY METHOD 03/13/2025 7:37 AM [facility] Potassium 3.9 3.5 - 5.5 mmol/L LAB CHEMISTRY METHOD 03/13/2025 7:37 AM [facility] Chloride 108 96 - 110 mmol/L LAB CHEMISTRY METHOD 03/13/2025 7:37 AM [facility] CO2 25 21 - 32 mmol/L LAB CHEMISTRY METHOD 03/13/2025 7:37 AM [facility] Anion Gap 5 3 - 11 LAB CHEMISTRY METHOD 03/13/2025 7:37 AM [facility] Glucose 92 70 - 100 mg/dL LAB CHEMISTRY METHOD 03/13/2025 7:37 AM EDT [facility] BUN 18 5 - 25 mg/dL LAB CHEMISTRY METHOD 03/13/2025 7:37 AM EDT [facility] Creatinine 0.80 0.50 - 1.10 mg/dL LAB CHEMISTRY METHOD 03/13/2025 7:37 AM EDT [facility] eGFR 78 >=60 mL/min/1. 73m2 LAB CHEMISTRY METHOD 03/13/2025 7:37 AM EDT [facility] Comment:Calculation based on the Chronic Kidney Disease Epidemiology Collaboration (CKD-EPI) equation refit without adjustment for race. BUN/Creatinine Ratio 22.5 LAB CHEMISTRY METHOD 03/13/2025 7:37 AM EDT [facility] Calcium 8.9 8.5 - 10.5 mg/dL LAB CHEMISTRY METHOD 03/13/2025 7:37 AM EDT [facility] Blood Venous blood specimen / Unknown Venipuncture / Unknown 03/13/2025 6:12 AM EDT 03/13/2025 6:46 AM EDT Doug Ramirez MD LAB BLOOD ORDERABLES Final Result [facility] [address] [place] [address], * External Colonoscopy Report (02/15/2025 10:51 AM EDT) Anatomical Region Laterality Modality Endoscopy us Historical Provider GI~PROCEDURE ORDERABLES F inal Result * [facility] SCREENING DIGITAL (05/10/2024 4:08 PM EDT) Anatomical Region Laterality Modality Mammography 05/10/2024 10:5 1 AM EDT Narrative 05/10/2024 4:08 PM EDT [facility] Diagnostic Imaging Department [address] [place] [address] Patient: RHETT TIJERINA /Age/Sex: 1950 - 74 - F Unit#: [id number] Location/Status: SPDIMAM/REG CLI Mnemonic/Ordering Site: [facility] Ordering Physician: ANY HICKS MD [facility] Screening Digital - 05/10/24 - 1131 Report Status:Signed EXAM: [facility] Screening Digital EXAM DATE AND TIME: 05/10/2024 11:31 AM HISTORY: Screening. Patient states 20 pound weight loss. COMPARISON: 01/14/23, 01/01/22, 11/23/20 TECHNIQUE: Bilateral digital breast tomosynthesis was performed in the CC and MLO projections. Computer aided detection with [employer] 3D 3.1 was employed. TISSUE DENSITY: a. [...] Procedure Note Luci Krueger MD - 08/30/2024 [facility] Diagnostic Imaging Department [address] [place] [address] Patient: RHETT TIJERINA Tala /Age/Sex: 1950 - 74 - F Unit#: [id number] Location/Status: [facility] CLI Mnemonic/Ordering Site: [facility] Ordering Physician: ANY HICKS MD [facility] Screening Digital - 05/10/24 - 1131 Report Status:Signed EXAM: [facility] Screening Digital EXAM DATE AND TIME: 05/10/2024 11:31 AM HISTORY: Screening. Patient states 20 pound weight loss. COMPARISON: 01/14/23, 01/01/22, 11/23/20 TECHNIQUE: Bilateral digital breast tomosynthesis was performed in the CCand MLO projections. Computer aided detection with [employer] 3D 3.1was employed. TISSUE DENSITY: a. The [...] IMG BI PROCEDURES Final Res ult * [facility] DEXA AXIAL SKELETON (01/02/2022 4:14 PM EST) Anatomical Region Laterality Modality Mammography 01/01/2022 10:3 2 AM EST Narrative 01/02/2022 4:14 PM EST [facility] Diagnostic Imaging Department [address] [place] [address] Patient: RHETT TIJERINA /Age/Sex: 1950 - 71 - F Unit#: [id number] Location/Status: SPDIMAM/REG CLI [facility] Ordering Physician: CADEN LANDA MD [facility] Dexa Axial Skeleton - 01/01/22 - 1100 History: Metabolic bone disease. Post menopausal estrogen deficiency. COMPARISON: 10/19/2016, 09/11/2013 and 03/27/2010. Findings: Bone densitometry is performed utilizing dual energy x-ray absorptiometry (DEXA) in the [employer] unit. The lumbar spine and proximal femora [...] 10/19/2016, but density remains within normal range. [id number] Dictating Physician: ENRICO BOND MD Electronically Signed by: ENRICO BOND MD Dic Date/Time: 01/02/22 1610 Sign date/Time: 01/02/22 1614 Procedure Note Enrico Bond MD - 11/04/2022 [facility] Diagnostic Imaging Department [address] [place], [place] [id number] Patient: RHETT TIJERINA S /Age/Sex: 1950 - 71 - F Unit#: [id number] Location/Status: [facility] Mnemonic/Ordering Site: [facility] Ordering Physician: CADEN LANDA MD [facility] Dexa Axial Skeleton - 01/01/22 - 1099 History: Metabolic bone disease. Post menopausal estrogen deficiency. COMPARISON: 10/19/2016, 09/11/2013 and 03/27/2010. Findings: Bone densitometry is performed utilizing dual energy x-rayabsorptiometry (DEXA) in the [employer] unit. The lumbar spine and proximal femoraare [...] 10/19/2016, but density remains within normal range. [id number] Dictating Physician: ENRICO BOND MD Electronically Signed [...] currently active code status orders. Care Teams Bone Char Operator Relationship Specialty Start Date End Date Any Hicks MD [address] [facility] [address] [place], [place] PCP - General Internal Medicine 09/10/09
--- OUTSIDE RECORDS SUMMARY | 2025-10-13 07:20 | XMS_ITS | Patient Health Record ---
Author Organization [facility] Address [address] [place] [address] Care Team Providers Care Marshmallow Runner Name Role Phone Jairo SALMERON, Carlito Primary Care Provider Samuel Gilmore Unavailable [phone] Allergies Allergen (clinical drug ingredient) Drug/Non Drug Allergy documented on EMR Reaction Allergy Type Onset Date Status Information temporarily unavailable Ritika type anesthetics (uncoded) Unknown Allergy Active Information temporarily unavailable Demerol Unknown Drug Allergy Active Information temporarily unavailable Penicillin Unknown Drug Allergy Active Information temporarily unavailable Sulfa Antibiotics Unknown Drug Allergy Active Reason [...] on feet; Duration: 30 days 03/10/2023 Not-Ne ng Tramadol & Dietary Manage Prod Not-Taking Clotrimazole-Betamethason e 1-0.05 % 1 application to affected area Externally Twice a day to affected areas on feet; Duration: 30 days 06/09/2023 Not-Ne vitale oxyCODONE HCl Not-Matt astorga Betamethasone Dipropionate 0.05 % 1 application Externally [...] Problem Status W/U Status Risk Notes Problem Information temporarily unavailable Atherosclerosis of [place] artery of both lower extremities, with unspecified presence of clinical manifestation (I70.203) Active confirmed Q7(A), Q8(2B), Q9(1B,2C ) Vital Signs Blood pressure diastolic 60 mm Hg 08/28/2025 Height 5ft 5in in 08/28/2025 Blood pressure systolic 116 mm Hg 08/28/2025 Weight 193 lbs 08/28/2025 BMI 32.11 kg/m2 08/28/2025 Procedures Procedure Date Ordered Date Performed Result Body Sit e 05759-NXTZKPY NAIL, 6 OR MORE 12/26/2024 N/A 04859-AVZR SKIN LESIONS, OVER 4 12/26/2024 N/A 11319-EKFZUTM NAIL, 6 OR MORE 03/30/2025 N/A 49447-IJZG SKIN LESIONS, OVER 4 03/30/2025 N/A 92175-FSEBNDT NAIL, 6 OR MORE 06/05/2025 N/A 76173-HAAR SKIN LESIONS, OVER 4 06/05/2025 N/A 52466-DWOESPK NAIL, 6 OR MORE 08/28/2025 N/A 73130-UMFQ SKIN LESIONS, OVER 4 08/28/2025 N/A Encounters Encounter Location Date Provider Diagnosis [address] [address] 12/26/2024 Samuel Moses Atherosclerosis of [place] artery of both lower extremities, with unspecified presence of clinical manifestation I70.203 ; Tinea unguium B35.1 ; Pain in right toe(s) M79.674 ; Pain in left toe(s) M79.675 and Xerosis of skin L85.[address] [address] 03/30/2025 Samuel Moses Atherosclerosis of [place] artery of both lower extremities, with unspecified presence of clinical manifestation I70.203 ; Tinea unguium B35.1 ; Pain in right toe(s) M79.674 and Pain in left toe(s) M79.[address] [address] 06/05/2025 Samuel Moses Atherosclerosis of [place] artery of both lower extremities, with unspecified presence of clinical manifestation I70.203 ; Tinea unguium B35.1 ; Pain in right toe(s) M79.674 and Pain in left toe(s) M79.[address] [address] 08/28/2025 Samuel Moses Atherosclerosis of [place] artery of both lower extremities, with unspecified presence of clinical manifestation I70.203 ; Tinea unguium B35.1 ; Pain in right toe(s) M79.674 and Pain in left toe(s) M79.[address] [address] 03/22/2025 Samuel Moses [address] [address] 04/16/2025 Samuel Moses Xerosis of skin L85. 3 [facility] [place] [address] [place] [address] 07/17/2025 Samuel Lopes Assessments Encounter Date Diagnosis (ICD Code) Assessment Notes Treatment Notes Treatment Clinical Notes Section Notes 12/26/2024 Tinea unguium (ICD-10 - B35.1) 12/26/2024 Atherosclerosis of [place] artery of both lower extremities, with unspecified presence of clinical manifestation (ICD-10 - I70.203) Q7(A), Q8(2B), Q9(1B,2C) 03/30/2025 Tinea unguium (ICD-10 - B35.1) 03/30/2025 Atherosclerosis of [place] artery of both lower extremities, with unspecified presence of clinical manifestation (ICD-10 - I70.203) Q7(A), Q8(2B), Q9(1B,2C) 04/16/2025 Xerosis of skin (ICD-10 - L85.3) 06/05/2025 Tinea unguium (ICD-10 - B35.1) 06/05/2025 Atherosclerosis of [place] artery of both lower extremities, with unspecified presence of clinical manifestation (ICD-10 - I70.203) Q7(A), Q8(2B), Q9(1B,2C) 08/28/2025 Tinea unguium (ICD-10 - B35.1) 08/28/2025 Atherosclerosis of [place] artery of both lower extremities, with unspecified presence of clinical manifestation (ICD-10 - I70.203) Q7(A), Q8(2B), Q9(1B,2C) 08/28/2025 Pain in right toe(s) (ICD-10 - M79.674) 03/30/2025 Pain in right toe(s) (ICD-10 - M79.674) 06/05/2025 Pain in right toe(s) (ICD-10 - M79.674) 12/26/2024 Pain in right toe(s) (ICD-10 - M79.674) 12/26/2024 Pain in left toe(s) (ICD-10 - M79.675) 03/30/2025 Pain in left toe(s) (ICD-10 - M79.675) 08/28/2025 Pain in left toe(s) (ICD-10 - M79.675) 06/05/2025 Pain in left toe(s) (ICD-10 - M79.675) 12/26/2024 Xerosis of skin (ICD-10 - L85.3) Plan Of Treatment Pending Test Test Name Order Date X ray : Ankle, left 3V 05/01/2020 36575-OVCDNWC NAIL, 6 OR MORE 09/26/2024 97327-EVPCISJ NAIL, 6 OR MORE 12/26/2024 57626-FNEDOUE NAIL, 6 OR MORE 03/30/2025 90999-STABIVC NAIL, 6 OR MORE 06/05/2025 48885-FUASGDB NAIL, 6 OR MORE 08/28/2025 79629-Udvmewgr Plate 07/19/2018 02805-Ggwemkoe Plate 10/18/2018 77419-Uhwuotkl Plate 08/11/2011 81248-Jxpicxye Plate 11/03/2011 08045-Jbopmfqm Plate 03/15/2012 67427-Yhnxpfav Plate 08/16/2012 06077-Nhpqikrk Plate 12/20/2012 88192-Zkdtnvdh Plate 04/18/2013 08905-Gqcnakuq Plate 08/29/2013 49720-Fxzvyjie Plate 12/15/2013 78005-Dqxaiftx Plate 07/03/2014 99481-Oczxlhxe Plate 02/05/2015 07933-Gxbqpjrc Plate 05/14/2015 25095-Wrilrdqj Plate 08/13/2015 63917-Sepbdkpk Plate 11/29/2015 76027-Wkcqwxom Plate 03/24/2016 44799-Vuaadlnc Plate 07/07/2016 07463-Dmwpnkem Plate 10/06/2016 46125-Iwacumsp Plate 01/12/2017 31553-Bpnilvea Plate 04/13/2017 82798-Mhlcjymo Plate 07/13/2017 57600-Ghkxgcsr Plate 11/16/2017 35568-Hkfnmuls Plate 02/22/2018 82957-IKLW SKIN LESIONS, OVER 4 12/26/19 25 02838-MBMJ SKIN LESIONS, OVER 4 09/26/20 24 57790-VSLW SKIN LESIONS, OVER 4 08/28/20 25 99587-QXXN SKIN LESIONS, OVER 4 06/05/20 25 62883-NHPR SKIN LESIONS, OVER 4 03/30/20 25 07479-TOHSHBTI OF HEMATOMA/FLUID 022 65779-PWQTMMHK OF HEMATOMA/FLUID 023 83269-JJRIXTKJ OF HEMATOMA/FLUID 018 Next Appt Details Provider Name:Samuel Lopes , 01/08/2026 11:00:00 AM, [address] [place], [address], Insurance Providers Payer Name Payer Address Payer Phone Subscriber Number Group Number Insured Name Patient Relationship to Insured Coverage Start Date Coverage End Date [employer] [address] [place] [address] [id number] [place], [place] Self - patient is the insured 4 Medical (General) History Medical History History ICD Code sciatica hypertension headaches/migraines back pain Arthritis covid-19 Surgical History Surgery Date(Month/Year) section cholecystectomy Tooth extraction 2020 endoscopy 08/05/22 Hospitalization History Reason Date(Month/Year) [facility]- cellulitis right wrist 02/2025 [facility] MRI, Xray 03/2016 Tooth extraction 2016 [facility]- cellulitis left hand 10/28/13- [facility] for rehab 07/28 [facility], admitted for kidney fail ure 08/07/13
== END 2025-10-10 07:17 | disposition home or self-care (01) ==
LOC: HO.HOSX 07:16
PROVIDERS: Visit Provider Physician Assistant
DX: Z47.1 Aftercare following joint replacement surgery (principal); Z96.652 Presence of left artificial knee joint
CPT/HCPCS: 73562; 99212

== ENCOUNTER 2025-10-10 10:44 | Outpatient (AMB) | payer MEDICARE, SELFPAY ==
--- NOTE | 2025-10-10 11:03 | A.OFFVIS_ITS ---
Intake Visit Reasons: AHOOF: 2WKPO: L TKA w/ 09/24/25 Intake Note: Antonietta is a 75 year old female who presents today post operatively after undergoing a left TKA, performed by Dr. Rodriguez on 09/24/25. Patient reports she is doing well, she uses oxycodone that helps with her discomofrt. At times her pain is worse at night, stating nerve pain. She will need a refill on her pain medication. Allergies Penicillins Allergy (Intermediate, Verified 10/10/25 11:15) Hives meperidine (From Demerol) Allergy (Mild, Verified 10/10/25 11:15) Hives epinephrine Adverse Reaction (Intermediate, Verified 10/10/25 11:15) tachycardia Medication List - Last Reconciled 10/10/25 by Nina Lutz PA-C acetaminophen 650 mg (2 x 325 mg) PO Q6H PRN 30 days amoxicillin 2,000 mg (4 x 500 mg) PO ONCE 1 day aspirin 325 mg PO BID 42 days atenolol 25 mg PO BEDTIME celecoxib 200 mg PO BID 30 days cholecalciferol (vitamin D3) 50 mcg PO DAILY@1900 cyanocobalamin (vitamin B-12) (Vitamin B-12) 1,000 mcg PO DAILY docusate sodium 100 mg PO BID PRN 30 days famotidine 40 mg PO BID ferrous sulfate 325 mg PO Q OTHER DAY gabapentin 100 mg PO BID 7 days magnesium hydroxide 311 mg PO BEDTIME PRN methocarbamol 500 mg PO TID 7 days nystatin 1 appl topical DAILY oxycodone 5 mg PO Q6H PRN 7 days walker Folding front wheeled walker walker Folding front wheeled walker HPI HPI AHOOF: 2WKPO: L TKA w/ 09/24/25: Details: 75-year-old female presents to the office today 2 weeks status post left total knee on 09/24/[address] Rodriguez. The patient is ambulating with a walker and continues to work with home physical therapy. Her pain is tolerable and she continues to take the oxycodone every 5 hours roughly. She states her pain and her swelling is improving and she has no concerns today. COUNTS INCLUDE 234 BEDS AT THE [facility] Medical History PONV (postoperative nausea and vomiting) PAT (paroxysmal atrial tachycardia) Aortic stenosis History of cellulitis (~03/13/25) Constipation Arthritis Murmur HTN (hypertension) Pericardial effusion SVT (supraventricular tachycardia) Osteopenia Osteoarthritis Migraine IBS (irritable bowel syndrome) Hiatal hernia GERD (gastroesophageal reflux disease) Diverticulosis Ascending aorta dilation Aortic valve disease Anemia Surgical History History of total right knee replacement (TKR) (02/07/24) History of esophagogastroduodenoscopy (EGD) H/O colonoscopy History of cervical discectomy (05/26/23) Hx of section Hx of tonsillectomy Hx of cholecystectomy Social History Household Members: Spouse Housing: House Are you a primary career based intervention coordinator to a significant other at home: No Do you presently have visiting nurse or other home services: No 75 years or older and lives alone: No Comment: wears brace on left knee Patient Tobacco Use Status: Former Tobacco user Tobacco use type: Cigarette e-Cigarette/Vaping Use: Never Used service: No Current occupational status: retired 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 No surrounding erythema or swelling. She has full range of motion and good activation of her quad. calf is supple and nontender neurovascularly intact. Results Reviewed Results Reviewed: X-rays of the left knee obtained in the office today and reviewed by me show intact orthopedic hardware. Assessment & Plan Assessment & Plan (1) Status post total left knee replacement: Code(s): Z96.652 - Presence of left artificial knee joint Category: Surgical Plan: Alvaro removed today Steri-Strips applied. The patient will continue working with physical therapy to improve range of motion strength and gait training. I reminded the patient no dental work until 3 months post op and he will require antibiotics for dental prophylaxis which I did sent to the pharmacy. Patient was reminded no driving until 6 weeks postop. They will return in 4 weeks for routine follow up, sooner if needed. Orders: Orders PT Evaluation and Treatment Today Z96.652 - Presence of left artificial knee joint XR knee LT 3V Today M25.562 - Pain in left knee Medications: New amoxicillin take 4 capsules 1 hr prior to dental procedure 2,000 mg (4 x 500 mg) PO ONCE 4 tabs 3RF 1 day Changed From oxycodone Partial Fill upon patient request. 5 mg PO Q4H PRN 42 tabs 0RF Pain, Moderate(Pain Scale 4-6) 7 days To oxycodone Partial Fill upon patient request. 5 mg PO Q6H PRN 28 tabs 0RF Pain, Moderate(Pain Scale 4-6) 7 days Coding Level of Care Code Global (46679) Diagnoses Status post total left knee replacement Z96.652
== END 2025-10-10 12:13 | disposition home or self-care (01) ==
LOC: HO.HOS 10:45
PROVIDERS: PCP Internal Medicine; Visit Provider Physician Assistant
DX: Z96.652 Presence of left artificial knee joint (principal)
CPT/HCPCS: 99024

== ENCOUNTER → 2025-10-10 10:50 | Outpatient (BNV) | payer MEDICARE, SELFPAY | PROVIDERS: Visit Provider Radiology Diagnostic Ultrasound | DX: M25.562 Pain in left knee (principal); Z96.652 Presence of left artificial knee joint | CPT/HCPCS: 73562 ==

== ENCOUNTER 2025-11-07 09:05 | Outpatient (AMB) | payer MEDICARE, SELFPAY ==
--- OUTSIDE RECORDS SUMMARY | 2024-09-18 09:15 | XMS_ITS ---
Author Organization [facility] Address [address] [place] [address] Care Team Providers Care Feeder Catcher Name Role Phone Carlito Gill MD Primary Care Provider Samuel Gilmore Unavailable [phone] Shira He [phone] Encounters Encounter Location Date Provider Diagnosis [address] [address] 09/18/2024 Shira He Plan Of Treatment Next Appt Details Provider Name:Samuel Lopes , 01/08/2026 11:00:00 AM, [address] [place] [address], [phone], Progress Notes * Antonietta CASEYDOB:[birth year] (75 yo F)Acc No.[id number]:09/18/2024 Progress Note Patient: Antonietta CUELLAR Provider: Esteban He DPM :1950 A ge:74 Y S ex:Female Date:09/18/2024 Address:[address] [place] [address] [facility] [id number] Pcp:Carlito Gill MD Subjective: * Chief Complaints: [...] Date: 11/18/2023 Generated for Cinthya Mart/Lashon on: 01/08/2025 09:09 AM EST
--- OUTSIDE RECORDS SUMMARY | 2024-09-21 06:30 | XMS_ITS ---
Author Organization [facility] Address [address] [place] [address] Care Team Providers Care Handicraft Or Hobby Shop Manager Name Role Phone Jairo SALMERON, Carlito Primary Care Provider Samuel Gilmore Unavailable [phone] Shira He [phone] Arguello Encounters Encounter Location Date Provider Diagnosis [address] [address] 09/21/2024 Shira He Plan Of Treatment Next Appt Details Provider Name:Samuel Lopes , 01/08/2026 11:00:00 AM, [address] [place], [address], Progress Notes * Antonietta CASEYDOB:[birth year] (75 yo F)Acc No.[id number]:09/21/2024 Progress Note Patient: Antonietta CUELLAR Provider: Esteban He DPM :1950 A ge:74 Y S ex:Female Date:09/21/2024 Address:[address] [place] [address] [facility] [place], [id number] Pcp:Carlito Gill MD Subjective: * Chief Complaints: [...] Date: 11/21/2023 Generated for Cinthya Virk on: 01/08/2025 09:09 AM EST
--- OUTSIDE RECORDS SUMMARY | 2025-06-26 10:45 | XMS_ITS ---
Author Organization [facility] Address [address] [place] [address] Care Team Providers Care Truck Greaser Name Role Phone Carltio Gill MD Primary Care Provider Samuel Gilmore Unavailable [phone] Encounters Encounter Location Date Provider Diagnosis [address] [address] 06/26/2025 Samuel Lopes Plan Of Treatment Next Appt Details Provider Name:Samuel Lopes , 01/08/2026 11:00:00 AM, [address] [place] [address], [phone], Progress Notes * Antonietta CASEYDOB:[birth year] (75 yo F)Acc No.[id number]:06/26/2025 Progress Note Patient: Antonietta CUELLAR Provider: Wesley Lopes DPM :1950 A ge:75 Y S ex:Female Date:06/26/2025 Address:[address] [place] [address] [facility] [place], [id number] Pcp:Carlito Gill MD Subjective: * Chief Complaints: * * Medical History: Objective: * Vitals: Assessment: Plan: * Treatment: * Images: * The named appointment provid er may or may not be the originator of this progress note, and it is not deemed complete until electronically signed by the appointment provider. Sign off status: Pending * Provider: Wesley Lopes DPM Date: 0 06/26/2025 Generated for Cinthya vitale/Shahla/Lashon on: 1 01/08/2025 09:09 AM EST
--- OUTSIDE RECORDS SUMMARY | 2025-08-24 07:45 | XMS_ITS ---
Author Organization [facility] Address [address] [place] [phone] Care Team Providers Care Returned Goods Inspector Name Role Phone Carlito Gill MD Primary Care Provider Samuel Gilmore Unavailable [phone] Encounters Encounter Location Date Provider Diagnosis [address] [address] 08/24/2025 Samuel Lopes Plan Of Treatment Next Appt Details Provider Name:Samuel Lopes , 01/08/2026 11:00:00 AM, [address] [place] [address], [phone], Progress Notes * Antonietta CASEYDOB:[birth year] (75 yo F)Acc No.[id number]:08/24/2025 Progress Note Patient: Antonietta CUELLAR Provider: Wesley Lopes DPM :1950 A ge:75 Y S ex:Female Date:08/24/2025 Address:[address] [place] [address] [facility] [place], [place]-[id number] Pcp:Carlito Gill MD Subjective: * Chief Complaints: [...] Date: 1 Generated for Cinthya vitale/Shahla/Lashon on: 01/08/2025 09:10 AM EST
--- OUTSIDE RECORDS SUMMARY | 2025-10-05 06:15 | XMS_ITS ---
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 Name Role Phone Carlito Gill MD Primary Care Provider Samuel Gilmore Unavailable [phone] Encounters Encounter Location Date Provider Diagnosis [address] [phone] 10/05/2025 Samuel Lopes Plan Of Treatment Next Appt Details Provider Name:Samuel Lopes , 01/08/2026 11:00:00 AM, [address] [place] [address], [phone], Progress Notes * Antonietta CASEYDOB:[birth year] (75 yo F)Acc No.[id number]:10/05/2025 Progress Note Patient: Antonietta CUELLAR Provider: Wesley Lopes DPM :1950 A ge:75 Y S ex:Female Date:10/05/2025 Address:[address] [place] [address] [facility] [id number] Pcp:Carlito Gill MD Subjective: * Chief Complaints: * * Medical History: Objective: * Vitals: Assessment: Plan: * Treatment: * Images: * The named appointment provid er may or may not be the originator of this progress note, and it is not deemed complete until electronically signed by the appointment provider. Sign off status: Pending * Provider: Wesley Lopes DPM Date: 1 12/05/2024 Generated for Cinthya vitale/Shahla/Lashno on: 01/08/2025 09:09 AM EST
--- OUTSIDE RECORDS SUMMARY | 2025-11-07 09:09 | XMS_ITS | Clinical Summary ---
Author Organization [facility] Prior to 04/14/25 Address [address] [place] [address] Care Team Providers Care Agricultural Research Director Name Role Phone Carlito Gill MD Primary Care Provider [phone] Allergies Active Allergy Reactions Criticality Noted Date [...] 3 05/08/2017 Active ergocalciferol (VITAMIN D2) capsule 19710 units TAKE ONE CAPSULE BY MOUTH ONE [...] age to complete this topic Care Teams Agricultural Research Director Relationship Specialty Start Date End Date Carlito Gill MD PCP - General Internal Medicine 06/11/17
--- OUTSIDE RECORDS SUMMARY | 2025-11-07 09:10 | XMS_ITS | Clinical Summary ---
Author Organization [facility] [address] [facility] Address [address] [place] [address] Phone Care Team Providers Care Ballast Regulator Operator Name Role Phone Any Hicks MD Primary Care Provider Allergies Active Allergy Reactions Criticality Noted Date Comments Cardioplegic Soln 06/04/2023 Microplegia Msa-msg [Plegisol] Other Reaction(s): OTHER Unknown Patient record w/[facility] Meperidine Hcl Nausea And Vomiting 11/16/2024 [...] Osteopenia 09/07/2023 Diverticulosis 09/07/2023 Severe obesity (BMI 35.0-39.9) with comorbidity 09/07/2023 Spondylolisthesis of lumbar region 09/07/2023 Overview [...] is no major perfusion abnormalities. Cervical myelopathy 06/04/2023 Overview (11/16/2024): Last Assessment & Plan: [...] for carpal tunnel diagnosed on EMG at [facility]. On exam, there is [...] Overview (11/16/2024): Low blood pressure Paroxysmal tachycardia 06/03/2023 Overview (11/16/2024): Paroxysmal tachycardia Pericardial effusion 06/03/2023 Overview (11/16/2024): Pericardial effusion, Norovirus 2016 Ascending aorta dilation 08/26/2021 Overview (11/16/2024): Last Assessment & Plan: Ascending [...] ordered to assess for change. Atrial tachycardia 02/18/2021 Overview (11/16/2024): 2003 in the setting [...] Encounters Date Type Department Care Team Description 10/30/2025 Telephone Gastroenterology - [address] [place] [address] Alexandru Pitt MD 09/10/2025 Telephone [facility] - [address] [place] [address] Maddie Krueger MD 08/22/2025 Telephone Gastroenterology - [address] [place] [address] Lyly Soliman MD 08/15/2025 1:00 PM EDT Office Visit Gastroenterology - [address] [place] [address] Cat Herr PA Positive colorectal cancer screening using Cologuard test (Primary Dx); Nausea; Chronic constipation; Gastroesophageal reflux disease without esophagitis; Large hiatal hernia 08/15/2025 Telephone Gastroenterology - [place] [address] [facility] [address] [place] [address] Latesha Dexter MA from Last [...] on file Sexual Orientation Not on file Last Filed Vital Signs [...] Care Team (Late st Contact Info) Description 12/24/2025 11:00 AM EST Ancillary Procedure [facility] - [address] [place] [address] Health Maintenance Due Date Last Done Comments [...] COLONOSCOPY REPORT Routine 02/15/2025 10:51 AM EDT [facility] SCREENING DIGITAL Routine 05/10/2024 4:08 PM EDT Encounter for screening mammogram for malignant neoplasm of breast [facility] DEXA AXIAL SKELETON Routine 01/02/2022 4:14 PM EST Encounter for screening for osteoporosis from Last 3 Months or Most Recently Relevant to Health Maintenance Results * Basic metabolic panel (03/13/2025 6:12 AM EDT) Sodium 138 133 - 145 mmol/L LAB CHEMISTRY METHOD 03/13/2025 7:37 AM [facility] Potassium 3.9 3.5 - 5.5 mmol/L LAB CHEMISTRY METHOD 03/13/2025 7:37 AM [facility] Chloride 108 96 - 110 mmol/L LAB CHEMISTRY METHOD 03/13/2025 7:37 AM [facility] CO2 25 21 - 32 mmol/L LAB CHEMISTRY METHOD 03/13/2025 7:37 AM [facility] Anion Gap 5 3 - 11 LAB CHEMISTRY METHOD 03/13/2025 7:37 AM [facility] Glucose 92 70 - 100 mg/dL LAB CHEMISTRY METHOD 03/13/2025 7:37 AM [facility] BUN 18 5 - 25 mg/dL LAB CHEMISTRY METHOD 03/13/2025 7:37 AM [facility] Creatinine 0.80 0.50 - 1.10 mg/dL LAB CHEMISTRY METHOD 03/13/2025 7:37 AM [facility] eGFR 78 >=60 mL/min/1. 73m2 LAB CHEMISTRY METHOD 03/13/2025 7:37 AM EDT [facility] Comment:Calculation based on the Chronic Kidney Disease Epidemiology Collaboration (CKD-EPI) equation refit without adjustment for race. BUN/Creatinine Ratio 22.5 LAB CHEMISTRY METHOD 03/13/2025 7:37 AM EDT [facility] Calcium 8.9 8.5 - 10.5 mg/dL LAB CHEMISTRY METHOD 03/13/2025 7:37 AM EDT [facility] Blood Venous blood specimen / Unknown Venipuncture / Unknown 03/13/2025 6:12 AM EDT 03/13/2025 6:46 AM EDT Doug Ramirez MD LAB BLOOD ORDERABLES Final Result [facility] [address] [place] [address], * External Colonoscopy Report (02/15/2025 10:51 AM EDT) Anatomical Region Laterality Modality Endoscopy Historical Provider GI~PROCEDURE ORDERABLES F inal Result * [facility] SCREENING DIGITAL (05/10/2024 4:08 PM EDT) Anatomical Region Laterality Modality Mammography 05/10/2024 10:5 1 AM EDT Narrative 05/10/2024 4:08 PM EDT [facility] Diagnostic Imaging Department [address] [place] [address] Patient: RHETT TIJERINA /Age/Sex: 1950 - 74 - F Unit#: [id number] Location/Status: SPDIMAM/REG CLI Mnemonic/Ordering Site: [facility] Ordering Physician: ANY HICKS MD [facility] Screening Digital - 05/10/24 - 1131 Report Status:Signed EXAM: [facility] Screening Digital EXAM DATE AND TIME: 05/10/2024 11:31 AM HISTORY: Screening. Patient states 20 pound weight loss. COMPARISON: 01/14/23, 01/01/22, 11/23/20 TECHNIQUE: Bilateral digital breast tomosynthesis was performed in the CC and MLO projections. Computer aided detection with [employer] Body 3D 3.1 was employed. TISSUE DENSITY: a. [...] Date/Time: 05/10/24 1608 Sign date/Time: 05/10/24 1608 Procedure Note Luci Krueger MD - 08/30/2024 [facility] Diagnostic Imaging Department [address] [place] [address] Patient: RHETT TIJERINA /Age/Sex: 1950 - 74 - F Unit#: [id number] Location/Status: SPDIMAM/REG CLI Mnemonic/Ordering Site: [facility] Ordering Physician: ANY HICKS MD [facility] Screening Digital - 05/10/24 - 1131 Report Status:Signed EXAM: [facility] Screening Digital EXAM DATE AND TIME: 05/10/2024 11:31 AM HISTORY: Screening. Patient states 20 pound weight loss. COMPARISON: 01/14/23, 01/01/22, 11/23/20 TECHNIQUE: Bilateral digital breast tomosynthesis was performed in the CCand MLO projections. Computer aided detection with [employer] Body 3D 3.1was employed. TISSUE DENSITY: a. The [...] IMG BI PROCEDURES Final Res ult * [facility] DEXA AXIAL SKELETON (01/02/2022 4:14 PM EST) Anatomical Region Laterality Modality Mammography 01/01/2022 10:3 2 AM EST Narrative 01/02/2022 4:14 PM [facility] Diagnostic Imaging Department [address] [place] [address] Patient: RHETT TIJERINA S /Age/Sex: 1950 - 71 - F Unit#: [id number] Location/Status: SPDIMAM/REG CLI Mnemonic[facility] Ordering Physician: CADEN LANDA MD [facility] Dexa Axial Skeleton - 01/01/221099 History: Metabolic bone disease. Post menopausal estrogen deficiency. COMPARISON: 10/19/2016, 09/11/2013 and 03/27/2010. Findings: Bone densitometry is performed utilizing dual energy x-ray absorptiometry (DEXA) in the [employer] unit. The lumbar spine and proximal femora [...] 10/19/2016, but density remains within normal range. [address] Dictating Physician: ENRICO BOND MD Electronically Signed by: ENRICO BOND MD Dic Date/Time: 01/02/22 1610 Sign date/Time: 01/02/22 1614 Procedure Note Enrico Bond MD - 11/04/2022 [facility] Diagnostic Imaging Department [address] [place] [address] Patient: RHETT TIJERINA Tala /Age/Sex: 1950 - 71 - F Unit#: [id number] Location/Status: SPDIMAM/REG CLI Mnemonic[facility] Ordering Physician: CADEN LANDA MD [facility] Dexa Axial Skeleton - 01/01/22 - 1100 History: Metabolic bone disease. Post menopausal estrogen deficiency. COMPARISON: 10/19/2016, 09/11/2013 and 03/27/2010. Findings: Bone densitometry is performed utilizing dual energy x-rayabsorptiometry (DEXA) in the [employer] unit. The lumbar spine and proximal femoraare [...] 10/19/2016, but density remains within normal range. [address] Dictating Physician: ENRICO BOND MD Electronically Signed [...] currently active code status orders. Care Teams Ballast Regulator Operator Relationship Specialty Start Date End Date Any Hicks MD [address] [facility] [address] [place], [place] PCP - General Internal Medicine 09/10/09
--- OUTSIDE RECORDS SUMMARY | 2025-11-07 09:10 | XMS_ITS | Patient Health Record ---
Author Organization [facility] Address [address] [place] [address] Care Team Providers Care Pulmonologist/Intensivist Name Role Phone Jairo SALMERON, Carlito Primary Care Provider Samuel Gilmore Unavailable [phone] Allergies Allergen (clinical drug ingredient) Drug/Non Drug [...] days 06/09/2023 Not-Ne vitale oxyCODONE HCl Not-Matt rizwan Betamethasone Dipropionate 0.05 % 1 application [...] atherosclerosis of arteries of lower limbs (disorder) ([id number] ) Atherosclerosis of [place] artery of both lower extremities, with unspecified presence of clinical manifestation (I70.203) Active confirmed Q7(A), Q8(2B), Q9(1B,2 C) Vital Signs Blood pressure diastolic 60 mm Hg 08/28/2025 Height 5ft 5in in 08/28/2025 Blood pressure systolic 116 mm Hg 08/28/2025 Weight 193 lbs 08/28/2025 BMI 32.11 kg/m2 08/28/2025 Procedures Procedure Date Ordered Date Performed Result Body Sit e 54361-JKPNKHQ NAIL, 6 OR MORE 12/26/2024 N/A 01659-UOBM SKIN LESIONS, OVER 4 12/26/2024 N/A 81812-GHMANHS NAIL, 6 OR MORE 03/30/2025 N/A 34872-IVWX SKIN LESIONS, OVER 4 03/30/2025 N/A 30721-PLDIHHY NAIL, 6 OR MORE 06/05/2025 N/A 07038-WETN SKIN LESIONS, OVER 4 06/05/2025 N/A 08651-DYJGEEU NAIL, 6 OR MORE 08/28/2025 N/A 31382-CEPP SKIN LESIONS, OVER 4 08/28/2025 N/A Encounters Encounter Location Date Provider Diagnosis [address] [address] 12/26/2024 Samuel Moses Atherosclerosis of [place] artery of both lower extremities, with unspecified presence of clinical manifestation I70.203 ; Tinea unguium B35.1 ; Pain in right toe(s) M79.674 ; Pain in left toe(s) M79.675 and Xerosis of skin L85.[address] [address] 03/30/2025 Samuel Moses Atherosclerosis of [place] artery of both lower extremities, with unspecified presence of clinical manifestation I70.203 ; Tinea unguium B35.1 ; Pain in right toe(s) M79.674 and Pain in left toe(s) M79.[address] [address] 06/05/2025 Samuel Moses Atherosclerosis of [place] artery of both lower extremities, with unspecified presence of clinical manifestation I70.203 ; Tinea unguium B35.1 ; Pain in right toe(s) M79.674 and Pain in left toe(s) M79.[address] [address] 08/28/2025 Samuel Moses Atherosclerosis of [place] artery of both lower extremities, with unspecified presence of clinical manifestation I70.203 ; Tinea unguium B35.1 ; Pain in right toe(s) M79.674 and Pain in left toe(s) M79.[address] [address] 03/22/2025 Samuel Moses [address] [address] 04/16/2025 Samuel Lopes Xerosis of skin L85. 3 [facility] [address] [place] [address] 07/17/2025 Samuel Lopes Assessments Encounter Date Diagnosis (ICD Code) Assessment Notes Treatment Notes Treatment Clinical Notes Section Notes 12/26/2024 Tinea unguium (ICD-10 - B35.1) 12/26/2024 Atherosclerosis of [place] artery of both lower extremities, with unspecified presence of clinical manifestation (ICD-10 - I70.203) Q7(A), Q8(2B), Q9(1B,2C) 03/30/2025 Tinea unguium (ICD-10 - B35.1) 03/30/2025 Atherosclerosis of [place] artery of both lower extremities, with unspecified presence of clinical manifestation (ICD-10 - I70.203) Q7(A), Q8(2B), Q9(1B,2C) 04/16/2025 Xerosis of skin (ICD-10 - L85.3) 06/05/2025 Tinea unguium (ICD-10 - B35.1) 06/05/2025 Atherosclerosis of [place] artery of both lower extremities, with unspecified presence of clinical manifestation (ICD-10 - I70.203) Q7(A), Q8(2B), Q9(1B,2C) 08/28/2025 Tinea unguium (ICD-10 - B35.1) 08/28/2025 Atherosclerosis of [place] artery of both lower extremities, with unspecified [...] X ray : Ankle, left 3V 05/01/2020 44045-FTUFXQB NAIL, 6 OR MORE 09/26/2024 33077-OZBLBZZ NAIL, 6 OR MORE 12/26/2024 84771-PKQPXUE NAIL, 6 OR MORE 03/30/2025 88032-XTFXNJX NAIL, 6 OR MORE 06/05/2025 19685-TKDYGVR NAIL, 6 OR MORE 08/28/2025 68829-Hdessfkd Plate 07/19/2018 60884-Jmvixfzb Plate 10/18/2018 38925-Qioqoewu Plate 08/11/2011 59038-Sjuaublq Plate 11/03/2011 54202-Scwslxvu Plate 03/15/2012 81660-Tsqwqfvs Plate 08/16/2012 21792-Ojwiigwz Plate 12/20/2012 42425-Kundzmcq Plate 04/18/2013 93591-Gtqkawlg Plate 08/29/2013 17968-Aoewfgfx Plate 12/15/2013 22381-Zmwwvhkp Plate 07/03/2014 36230-Gisejvep Plate 02/05/2015 14104-Axvhbfbv Plate 05/14/2015 35332-Tgqrgohu Plate 08/13/2015 22739-Elybccww Plate 11/29/2015 09927-Agibzkam Plate 03/24/2016 30641-Lylebxzg Plate 07/07/2016 80036-Cegkebwn Plate 10/06/2016 61802-Ktyaafvh Plate 01/12/2017 75061-Nknnmazr Plate 04/13/2017 57827-Qjbbvqvh Plate 07/13/2017 53928-Ozxeicxq Plate 11/16/2017 68141-Rseoykjf Plate 02/22/2018 49841-CAHO SKIN LESIONS, OVER 4 12/26/19 25 76577-IQWN SKIN LESIONS, OVER 4 09/26/20 24 41687-UBZZ SKIN LESIONS, OVER 4 08/28/20 25 47744-EKXR SKIN LESIONS, OVER 4 06/05/20 25 76847-YTNT SKIN LESIONS, OVER 4 03/30/20 25 72781-JBYZNNUY OF HEMATOMA/FLUID 022 72751-VKTPDBYX OF HEMATOMA/FLUID 023 40580-DOVQVTQE OF HEMATOMA/FLUID 018 Next Appt Details Provider Name:Samuel Lopes , 01/08/2026 11:00:00 AM, [address] [place], [address], Insurance Providers Payer Name Payer Address Payer Phone Subscriber Number Group Number Insured Name Patient Relationship to Insured Coverage Start Date Coverage End Date [employer] [place] [employer] [address] [facility] [place] [address] [id number] [place], [place] Self - patient is the insured 4 Medical (General) History Medical History History ICD Code sciatica hypertension headaches/migraines back pain Arthritis covid-19 Surgical History Surgery Date(Month/Year) section cholecystectomy Tooth extraction 2020 endoscopy 08/05/22 Hospitalization History Reason Date(Month/Year) [facility]- cellulitis right wrist 02/2025 [facility], MRI, Xray 03/2016 Tooth extraction 2016 [facility]- cellulitis left hand 10/28/13- Tx [facility] for rehab 07/28 [facility], admitted for kidney fail ure 08/07/13
--- NOTE | 2025-11-07 09:14 | MHC.OFFVIS ---
Vital Signs 11/07/25 09:18 Height 5 ft 4 in Weight 195 lb BMI 33.5 Intake Visit Reasons: 6WKPO: L TKA w/ 09/24/25 Intake Note: Antonietta is a 75 year old female who presents with complaints of mild to moderate discomfort in her left knee after undergoing left total knee replacement surgery on 09/24/2025. She continues with her physical therapy exercises. She does take oxycodone which gives her fairly good relief. She denies any fevers or chills. Allergies Penicillins Allergy (Intermediate, Verified 10/10/25 11:15) Hives meperidine (From Demerol) Allergy (Mild, Verified 10/10/25 11:15) Hives epinephrine Adverse Reaction (Intermediate, Verified 10/10/25 11:15) tachycardia Medication List - Last Reconciled 11/07/25 by Herbert Rodriguez MD acetaminophen 650 mg (2 x 325 mg) PO Q6H PRN 30 days amoxicillin 2,000 mg (4 x 500 mg) PO ONCE 1 day aspirin 325 mg PO BID 42 days atenolol 25 mg PO BEDTIME celecoxib 200 mg PO BID cholecalciferol (vitamin D3) 50 mcg PO DAILY@1900 cyanocobalamin (vitamin B-12) (Vitamin B-12) 1,000 mcg PO DAILY docusate sodium 100 mg PO BID PRN 30 days famotidine 40 mg PO BID ferrous sulfate 325 mg PO Q OTHER DAY gabapentin 100 mg PO BID 7 days magnesium hydroxide 311 mg PO BEDTIME PRN methocarbamol 500 mg PO TID 7 days nystatin 1 appl topical DAILY oxycodone 5 mg PO Q6H PRN walker Folding front wheeled walker walker Folding front wheeled walker [facility] Medical History PONV (postoperative nausea and vomiting) PAT (paroxysmal atrial tachycardia) Aortic stenosis History of cellulitis (~03/13/25) Constipation Arthritis Murmur HTN (hypertension) Pericardial effusion SVT (supraventricular tachycardia) Osteopenia Osteoarthritis Migraine IBS (irritable bowel syndrome) Hiatal hernia GERD (gastroesophageal reflux disease) Diverticulosis Ascending aorta dilation Aortic valve disease Anemia Surgical History History of total right knee replacement (TKR) (02/07/24) History of esophagogastroduodenoscopy (EGD) H/O colonoscopy History of cervical discectomy (05/26/23) Hx of section Hx of tonsillectomy Hx of cholecystectomy Social History Household Members: Spouse Housing: House Are you a primary rn transitional care to a significant other at home: No Do you presently have visiting nurse or other home services: No 75 years or older and lives alone: No Comment: wears brace on left knee Patient Tobacco Use Status: Former Tobacco user Tobacco use type: Cigarette e-Cigarette/Vaping Use: Never Used service: No Current occupational status: retired 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 Tijerina continues to do very well after undergoing left total knee replacement surgery on 09/24/2025. She will continue with her physical therapy exercises. She does know to take antibiotics before any dental work. She will contact me prior to her follow-up appointment in 2-3 months should any questions or concerns arise. Feel free to call me at any time should questions regarding her orthopedic management arise. Medications: Refilled oxycodone Partial Fill upon patient request. 5 mg PO Q6H PRN 30 tabs 0RF pain Coding Level of Care Code Global (02691) Diagnoses Left knee pain M25.562
[2025-11-07 09:18] VITALS: BMI 33.5
== END 2025-11-07 09:41 | disposition home or self-care (01) ==
LOC: HO.HOS 09:06
PROVIDERS: PCP Internal Medicine; Visit Provider Orthopaedic Surgery
DX: M25.562 Pain in left knee (principal)
CPT/HCPCS: 99024

== ENCOUNTER → 2025-11-07 09:05 | Outpatient (BNVA) | payer MEDICARE, SELFPAY | PROVIDERS: PCP Internal Medicine; Visit Provider Orthopaedic Surgery | DX: Z47.1 Aftercare following joint replacement surgery (principal); M25.562 Pain in left knee; Z96.652 Presence of left artificial knee joint | CPT/HCPCS: 99212 ==